=== PATIENT | female | born 1995 | race Caucasian/White ===

== ENCOUNTER 2016-09-09 19:04 | Emergency (ER) | payer SELFPAY ==
[~2016-09-09] VITALS: Ht 162.6 cm; Wt 57.2 kg
[2016-09-09] MEDS ORDERED: NKM (19:14)
[2016-09-09] MEDS ORDERED: Famotidine 20 MG/ 2ML VIAL IVP ONE (19:30)
[2016-09-09] MEDS ORDERED: Metoclopramide 10mg/2ml Inj IVP ONE (19:30)
[2016-09-09] MEDS ORDERED: Morphine Sulfate 2mg/ml Inj IVP ONE (19:45)
--- NOTE | 2016-09-09 19:48 | Emergency Room Report ---
History of Present Illness General Chief Complaint: Abdominal Pain Source: Patient Present Illness HPI 20YOF walk-in with 3 hours R>L lower abd pain with nausea/vomiting, chills. No urinary complaints. History of bilateral ovarian cysts. Painful episodes usually last "just for a minute", have been better since control implant by [employer]. This does NOT feel similar. Denies sick contacts, foreign travel, previous travel. Allergies: Coded Allergies: PENICILLINS (Verified Allergy, Unknown, 09/09/16) Patient History Past Medical History: other - Bilateral ovarian cysts Past Surgical History: none Pertinent Family History: none Social History: Denies: alcohol use, drug use, smoking Last Menstrual Period: unk Review of Systems All Other Systems: negative except mentioned in HPI Physical Exam Vital Signs Date Time Temp Pulse Resp B/P Pulse Ox O2 Delivery O2 Flow Rate FiO2 09/09/16 19:09 97.5 106 16 113/73 100 Room Air Sp02 EP Interpretation: reviewed, abnormal General Appearance: normal inspection, well appearing, no apparent distress, alert, GCS 15, non-toxic Head: normocephalic Eyes: bilateral eye EOMI, bilateral eye PERRL ENT: normal ENT inspection, hearing grossly normal, normal voice Neck: normal inspection, full range of motion, supple, no bony tend Respiratory: normal inspection, lungs clear, normal breath sounds, no respiratory distress, no retraction, no wheezing Cardiovascular #1: regular rate, rhythm, no edema Gastrointestinal: normal inspection, normal bowel sounds, soft, no guarding, no hernia, other - TTP to RLQ. No rebound, guarding or peritoneal signs. 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 Normotensive. Afebrile. - Urine preg negative - UA: WBCs, LE. Also squams, ?contaminated - Labs: Leuks 16K Given longer duration for pain today vs usual "cyst" pain, leukocytosis, will do CTAP to r/o appy Endorsed to Dr Epperson at 10pm to followup result and further management. Last Vital Signs Date Time Temp Pulse Resp B/P Pulse Ox O2 Delivery O2 Flow Rate FiO2 09/09/16 19:09 97.5 106 16 113/73 100 Room Air Status: improved FOZIA RODRIGUEZ M.D. Sep 09, 2016 19:48
[2016-09-09 20:00] VITALS: BP_SYST 106; BP_SYST 142; BP_DIAS 62; BP_DIAS 72
[2016-09-09 20:34] LABS: APPEARANCE,URINE SLIGHTLY CLOUDY; KETONES,URINE NEGATIVE (NEGATIVE); LEUKOCYTE ESTERASE ,URINE 2+ (NEGATIVE); NITRITE,URINE NEGATIVE (NEGATIVE); PH,URINE 6 (4.5-8.0); PROTEIN,URINE 1+ (NEGATIVE); UROBILINOGEN,URINE NORMAL MG/DL (0.0-1.0)
[2016-09-09 20:49] LABS: BACTERIA,URINE FEW /HPF; SQUAMOUS EPITHELIAL CELL,UR MANY /LPF (NONE/OCC)
[2016-09-09 21:00] VITALS: BP 101/63
[2016-09-09 21:07] LABS: MEAN CORPUSCULAR HEMOGLOBIN 27.5 PG (27.0-31.0); MEAN CORPUSCULAR HGB CONC 32.3 G/DL (32.0-36.0); MEAN CORPUSCULAR VOLUME 85 FL (80-99); MEAN PLATELET VOLUME 7.6 FL (6.5-10.1); PLATELET COUNT 267 K/UL (150-450); RED BLOOD COUNT 4.43 M/UL (4.20-5.40); RED CELL DISTRIBUTION WIDTH 14.1 % (11.6-14.8); WHITE BLOOD COUNT 16.4 K/UL (4.8-10.8)
[2016-09-09 21:10] LABS: EOSINOPHILS % (AUTO) 0.7 % (0.0-3.0); LYMPHOCYTES % (AUTO) 7.4 % (20.0-45.0); MONOCYTES % (AUTO) 5.8 % (1.0-10.0); NEUTROPHILS % (AUTO) 85.6 % (45.0-75.0)
[2016-09-09 21:11] LABS: BASOPHILS % (AUTO) 0.5 % (0.0-2.0)
[2016-09-09] MEDS ORDERED: cefTRIAXone 1 GM in NS 55 ML IVPB ONE (21:15)
[2016-09-09 21:30] LABS: ALANINE AMINOTRANSFERASE 9 U/L (3-33); ALBUMIN/GLOBULIN RATIO 1.3 (1.0-2.7); ANION GAP 17 (5-15); ASPARTATE AMINO TRANSFERASE 15 U/L (5-40); CALCIUM 8.9 mg/dL (8.6-10.2); CARBON DIOXIDE 24 mEQ/L (20-30); CHLORIDE 97 mEQ/L (98-107); CREATININE 0.7 mg/dL (0.5-0.9); GLOMERULAR FILTRATION RATE > 60 mL/min (>60); HEMOLYSIS 5; LIPASE 32 U/L (< 60); POTASSIUM 3.7 mEQ/L (3.4-4.9); SODIUM 138 mEQ/L (135-145); TOTAL PROTEIN 7.9 g/dL (6.6-8.7)
[2016-09-09] MEDS ORDERED: Clindamycin 600mg 50 ML IVPB ONE (21:30)
[2016-09-09] MEDS ORDERED: Solu-MEDROL 125mg Inj IVP ONE (22:15)
[2016-09-09] MEDS ORDERED: DiphenhydrAMINE 50mg/ml Inj IVP ONE (22:15)
[2016-09-09 22:23] VITALS: BP 140/80
[2016-09-09] MEDS ORDERED: Ketorolac 30mg Inj IV ONE (23:15)
[2016-09-09] MEDS ORDERED: Morphine Sulfate 4mg/ml Inj IVP ONE (23:15)
[2016-09-09] MEDS ORDERED: BACTRIM DS TAB1 EAC1 ORAL (23:17)
[2016-09-09] MEDS ORDERED: HYDROCODON-ACE1 EA15 ORAL (23:17)
[2016-09-09] MEDS ORDERED: IBUPROFEN600 MG ORAL (23:17)
[2016-09-09 23:32] VITALS: BP 90/57
--- NOTE | 2016-09-10 09:10 | Diagnostic Imaging Report ---
Indication: Right lower quadrant pain Technique: CT of the abdomen and pelvis utilizing automated exposure control with intravenous contrast. Venous scanning performed. CT dose: Total DLP 750 mGycm; CTDI vol 15.5 mGy Comparison: None Findings: Lung bases are clear. The liver, adrenal glands, kidneys, spleen and pancreas are unremarkable. No CT evident gallstones are seen. Small bowel loops are normal in caliber. Fluid-filled nondilated distal small bowel loops are seen. The appendix is normal. There is no free intraperitoneal fluid or air. There is a 1.7 cm hypodense probable left ovarian cyst. Bladder is grossly unremarkable. Abdominal aorta is normal in caliber. Impression: Normal appendix. Fluid-filled nondilated distal small bowel loops possibly representing mild nonspecific enteritis. Clinical correlation recommended. Other findings as above. The CT scanner at [facility] is accredited by the [employer] and the scans are performed using protocols designed to limit radiation exposure to as low as reasonably achievable to attain images of sufficient resolution adequate for diagnostic evaluation.
== END 2016-09-09 23:32 | disposition home or self-care (01) ==
LOC: EMR 21:47
DX: R10.31 Right lower quadrant pain (principal); Z88.0 Allergy status to penicillin
CPT/HCPCS: 36415; 74177; 80053; 80300; 81003; 81025; 83690; 85025; 87086; 96374; 96375; 99284; J1200; J1885; J2270; J2405; J2930; Q9967; S0077

== ENCOUNTER 2017-07-19 21:12 | Emergency (ER) | payer MEDICAID ==
[~2017-07-19] VITALS: Ht 160 cm; Wt 59.0 kg
[~2017-07-19 21:12] MED LIST: BACTRIM DS TAB1 EAC1 ORAL; CIPROFLOXACIN500 M2 ORAL; HYDROCODON-ACE1 EA15 ORAL; IBUPROFEN600 MG ORAL; NKM; ZOFRAN ODT4 MG ORAL
--- NOTE | 2017-07-19 21:33 | Emergency Room Report ---
History of Present Illness General Chief Complaint: Abdominal Pain Source: Patient Present Illness HPI This is a 21-year-old female with no significant past medical history. She presents with chief complaint of abdominal pain. She was here 2 days ago for left flank pain. Labs were unremarkable. Urine was questionable infection. Ultrasound was negative. Now pain radiates to the pelvic area and is more severe. Pain is 9 out of 10. Radiating to the pelvic area. No dysuria frequency. Multiple episode vomiting. No diarrhea. No fever or chills. Nothing made it better. Nothing made it worse. Allergies: Coded Allergies: IODINE (Verified Allergy, Unknown, 07/17/17) PENICILLINS (Verified Allergy, Unknown, 07/17/17) Patient History Past Medical History: see triage record, old chart reviewed Past Surgical History: none Pertinent Family History: none Social History: Denies: smoking Last Menstrual Period: four months ago Now: No : 1 Para: 1 Immunizations: other Reviewed Nursing Documentation: PMH: Agreed; PSxH: Agreed Nursing Documentation-PMH Hx Asthma: Yes Review of Systems Eye: Denies: eye pain, blurred vision ENT: Denies: ear pain, nose congestion, throat swelling Respiratory: Denies: cough, shortness of breath Cardiovascular: Denies: chest pain, palpitations Gastrointestinal: Reports: abdominal pain, nausea, vomiting; Denies: diarrhea Musculoskeletal: Denies: back pain, joint pain Skin: Denies: rash Neurological: Denies: headache, numbness Endocrine: Denies: increased thirst, increased urine Hematologic/Lymphatic: Denies: easy bruising All Other Systems: negative except mentioned in HPI Physical Exam Vital Signs Date Time Temp Pulse Resp B/P (MAP) Pulse Ox O2 Delivery O2 Flow Rate FiO2 07/19/17 21:26 98.3 104 18 117/81 98 Room Air 98.2 Sp02 EP Interpretation: reviewed, normal General Appearance: well appearing, no apparent distress, alert Head: normocephalic, atraumatic Eyes: bilateral eye PERRL, bilateral eye EOMI ENT: hearing grossly normal, normal pharynx Neck: full range of motion, supple, no meningismus Respiratory: chest non-tender, lungs clear, normal breath sounds Cardiovascular #1: regular rate, rhythm, no murmur Gastrointestinal: normal bowel sounds, no mass, no organomegaly, no bruit, non- distended, tenderness - left lower quadrant and suprapubic Musculoskeletal: back normal, gait/station normal, normal range of motion Psychiatric: mood/affect normal Skin: warm/dry Medical Decision Making Diagnostic Impression: Primary Impression: Renal colic on left side Additional Impression: Abdominal pain Qualified Codes: R10.32 - Left lower quadrant pain ER Course Patient with abdominal pain. No evidence of infection. CT scan showed a punctated nonobstructing renal calculi. I review her blood work and urinalysis from a couple days ago. She does have microscopic hematuria. It improved today. I suspect that she passed a kidney stone. No evidence of acute abdomen. We'll discharge home. Continue with antibiotics. Lab Results Impression labs unremarkable CT/MRI/US Diagnostic Results CT/MRI/US Diagnostic Results : Imaging Test Ordered: CT abdomen and pelvis Impression Read by radiologist. No urinary obstruction. Punctated nonobstructed renal calculi. Last Vital Signs Date Time Temp Pulse Resp B/P (MAP) Pulse Ox O2 Delivery O2 Flow Rate FiO2 07/19/17 21:26 98.3 104 18 117/81 98 Room Air 98.2 Status: improved Disposition: HOME, SELF-CARE Condition: Stable Scripts Ibuprofen* (MOTRIN*) 600 Mg Tablet 600 MG ORAL THREE TIMES A DAY, #30 TAB 0 Refills Prov: BRYANT PATEL M.D. 07/19/17 Hydrocodone/Acetaminophen 5-325* (HYDROCODONE/ACETAMINOPHEN 5-325*) 1 Each Tablet 1 TAB ORAL Q6H PRN for For Pain, #15 TAB 0 Refills Prov: BRYANT PATEL M.D. 07/19/17 Additional Instructions: Follow-up your DrYeni in 2-3 days if not better. Return if symptom worsen. Increase fluid. Finish antibiotics. BRYANT PATEL M.D. Jul 19, 2017 21:33
[2017-07-19] MEDS ORDERED: Ketorolac 30mg Inj IV ONE (21:45)
[2017-07-19 21:48] VITALS: BP 117/81
[2017-07-19 21:55] LABS: APPEARANCE,URINE CLEAR; BILIRUBIN, URINE NEGATIVE (NEGATIVE); COLOR,URINE PALE YELLOW; GLUCOSE, URINE (UA) NEGATIVE (NEGATIVE); KETONES,URINE NEGATIVE (NEGATIVE); LEUKOCYTE ESTERASE ,URINE NEGATIVE (NEGATIVE); NITRITE,URINE NEGATIVE (NEGATIVE); PH,URINE 6 (4.5-8.0); PROTEIN,URINE 3+ (NEGATIVE); UROBILINOGEN,URINE NORMAL MG/DL (0.0-1.0)
[2017-07-19 22:21] LABS: BASOPHILS % (AUTO) 0.8 % (0.0-2.0); EOSINOPHILS % (AUTO) 1.6 % (0.0-3.0); HEMATOCRIT 37.7 % (37.0-47.0); HEMOGLOBIN 12.3 G/DL (12.0-16.0); LYMPHOCYTES % (AUTO) 19.7 % (20.0-45.0); MEAN CORPUSCULAR VOLUME 86 FL (80-99); MONOCYTES % (AUTO) 8.4 % (1.0-10.0); NEUTROPHILS % (AUTO) 69.5 % (45.0-75.0); PLATELET COUNT 293 K/UL (150-450); RED BLOOD COUNT 4.38 M/UL (4.20-5.40); RED CELL DISTRIBUTION WIDTH 12.6 % (11.6-14.8); WHITE BLOOD COUNT 13.4 K/UL (4.8-10.8)
[2017-07-19] MEDS ORDERED: Morphine Sulfate 4mg/ml Inj IVP ONE (22:45)
[2017-07-19] MEDS ORDERED: HYDROCODON-ACE1 EA15 ORAL (23:06)
[2017-07-19] MEDS ORDERED: IBUPROFEN600 MG ORAL (23:06)
[2017-07-19 23:20] VITALS: BP 110/67
--- NOTE | 2017-07-20 10:40 | Diagnostic Imaging Report ---
Indication: Abdominal pain, nausea, vomiting Technique: Spiral acquisitions obtained through the abdomen and pelvis. No oral contrast utilized, per emergency room physician request No IV contrast utilized, per referring physician request.. Multiplanar reconstructions were generated. Total dose length product 673.93 mGycm. CTDIvol(s) 13.21 mGy. Dose reduction achieved using automated exposure control Comparison: 09/09/2016 Findings: The appendix is normal. No evidence of diverticulosis or diverticulitis. No small bowel distention. No free or loculated intraperitoneal air or fluid is evident. There is a tiny fat-containing umbilical hernia again demonstrated. Lack of IV contrast limits assessment of the solid organs. The liver, gallbladder, bile ducts, pancreas, spleen, adrenals, are all unremarkable. There is equivocal slight edema of the right kidney and slight indistinctness of the right renal margin, minimal stranding of the perinephric fat. There is a 2 mm calculus within the left upper pole renal sinus, not definitely evident previously. No ureteral calculi, hydronephrosis or hydroureter demonstrated. The bladder is unremarkable, nondistended. Uterus and ovaries are unremarkable. No pelvic mass or adenopathy. No retroperitoneal or mesenteric mass or adenopathy. The included lung bases are clear. 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 Bones are otherwise unremarkable. Impression: Equivocal right renal edema, if real could indicate mild pyelonephritis. Correlate with clinical and laboratory findings No acute or significant abnormality otherwise Nonobstructive left upper pole renal calculus Incidental findings as noted, including transitional lumbosacral anatomy This agrees with the preliminary interpretation provided overnight by [facility] teleradiology service. The CT scanner at [facility] is accredited by the [employer] and the scans are performed using protocols designed to limit radiation exposure to as low as reasonably achievable to attain images of sufficient resolution adequate for diagnostic evaluation.
== END 2017-07-19 23:20 | disposition home or self-care (01) ==
LOC: EMR 22:00
DX: N20.0 Calculus of kidney (principal); J45.909 Unspecified asthma, uncomplicated; Z88.0 Allergy status to penicillin
CPT/HCPCS: 36415; 74176; 81003; 81025; 85025; 96374; 96375; 99284; J1885; J2270; J2405

== ENCOUNTER 2017-09-06 22:54 | Emergency (ER) | payer MEDICAID ==
[~2017-09-06] VITALS: Ht 160 cm; Wt 63.5 kg
[2017-09-06 23:15] VITALS: BP 112/66
--- NOTE | 2017-09-06 23:27 | Emergency Room Report ---
History of Present Illness General Chief Complaint: Abdominal Pain Source: Patient Present Illness HPI Is a 21-year-old female with no past medical history. She's been having recurrent left pelvic/lower quadrant pain. I saw her in June for same. She presents with acute onset of left lower quadrant pain that started around 7:30 PM. Progressively getting worse. Now worse with movement and palpation. Has nausea but no vomiting. No hematuria. Denies any fever chills. Similar symptom in the past. No radiation. Localized to the left lower quadrant. Allergies: Coded Allergies: IODINE (Verified Allergy, Unknown, 07/17/17) PENICILLINS (Verified Allergy, Unknown, 07/17/17) Patient History Past Medical History: see triage record, old chart reviewed Past Surgical History: none Pertinent Family History: none Social History: Denies: smoking Last Menstrual Period: unk Now: No - has control iimplants Immunizations: other Reviewed Nursing Documentation: PMH: Agreed; PSxH: Agreed Nursing Documentation-PMH Hx Asthma: Yes Review of Systems Eye: Denies: eye pain, blurred vision ENT: Denies: ear pain, nose congestion, throat swelling Respiratory: Denies: cough, shortness of breath Cardiovascular: Denies: chest pain, palpitations Gastrointestinal: Reports: abdominal pain; Denies: diarrhea, nausea, vomiting Musculoskeletal: Denies: back pain, joint pain Skin: Denies: rash Neurological: Denies: headache, numbness Endocrine: Denies: increased thirst, increased urine Hematologic/Lymphatic: Denies: easy bruising All Other Systems: negative except mentioned in HPI Physical Exam Vital Signs Date Time Temp Pulse Resp B/P (MAP) Pulse Ox O2 Delivery O2 Flow Rate FiO2 09/06/17 23:03 98.2 93 18 104/69 97 Room Air 98.2 vitals normal Sp02 EP Interpretation: reviewed, normal General Appearance: well appearing, no apparent distress, alert Head: normocephalic, atraumatic Eyes: bilateral eye PERRL, bilateral eye EOMI ENT: hearing grossly normal, normal pharynx Neck: full range of motion, supple, no meningismus Respiratory: chest non-tender, lungs clear, normal breath sounds Cardiovascular #1: regular rate, rhythm, no murmur Gastrointestinal: normal bowel sounds, non tender, no mass, no organomegaly, no bruit, non-distended, tenderness - left lower quadrant Musculoskeletal: back normal, gait/station normal, normal range of motion Psychiatric: mood/affect normal Skin: warm/dry Medical Decision Making Diagnostic Impression: Primary Impression: Abdominal pain Qualified Codes: R10.32 - Left lower quadrant pain Additional Impression: Hematuria Qualified Codes: R31.21 - Asymptomatic microscopic hematuria ER Course Patient with abdominal pain and microscopic hematuria. This may be secondary to a passed stone but other differential include renal cysts, bladder cyst, infection, neoplasm. CT scan unremarkable. We'll discharge home with urology follow-up. CT/MRI/US Diagnostic Results CT/MRI/US Diagnostic Results : Imaging Test Ordered: CT abdomen and pelvis Impression read by radiologist. no acute inflammation surrounding the appendix. 1 mm nonobstructing left renal stone. Last Vital Signs Date Time Temp Pulse Resp B/P (MAP) Pulse Ox O2 Delivery O2 Flow Rate FiO2 09/06/17 23:03 98.2 93 18 104/69 97 Room Air 98.2 Status: improved Disposition: HOME, SELF-CARE Condition: Stable Scripts Ibuprofen* (MOTRIN*) 600 Mg Tablet 600 MG ORAL THREE TIMES A DAY, #30 TAB 0 Refills Prov: BRYANT PATEL M.D. 09/07/17 Hydrocodone/Acetaminophen 5-325* (HYDROCODONE/ACETAMINOPHEN 5-325*) 1 Each Tablet 1 TAB ORAL Q6H PRN for For Pain, #20 TAB 0 Refills Prov: BRYANT PATEL M.D. 09/07/17 Patient Instructions: Abdominal Pain, Adult Additional Instructions: Follow-up your doctor in 2-3 days. Return if symptom worsen. You may need a referral to see a urologist for bloody urine. BRYANT PATEL M.D. Sep 06, 2017 23:27
[2017-09-06] MEDS ORDERED: Morphine Sulfate 4mg/ml Inj IVP ONE (23:30)
[2017-09-06] MEDS ORDERED: Ketorolac 30mg Inj IV ONE (23:30)
[2017-09-06 23:54] LABS: BASOPHILS % (AUTO) 0.6 % (0.0-2.0); EOSINOPHILS % (AUTO) 1.9 % (0.0-3.0); HEMATOCRIT 41.1 % (37.0-47.0); HEMOGLOBIN 13.6 G/DL (12.0-16.0); LYMPHOCYTES % (AUTO) 24.3 % (20.0-45.0); MEAN CORPUSCULAR VOLUME 84 FL (80-99); MONOCYTES % (AUTO) 6.1 % (1.0-10.0); NEUTROPHILS % (AUTO) 67.1 % (45.0-75.0); PLATELET COUNT 326 K/UL (150-450); RED BLOOD COUNT 4.89 M/UL (4.20-5.40); RED CELL DISTRIBUTION WIDTH 12.9 % (11.6-14.8); WHITE BLOOD COUNT 10.3 K/UL (4.8-10.8)
[2017-09-07 00:05] LABS: ANION GAP 8 mmol/L (5-15); BLOOD UREA NITROGEN 10 mg/dL (7-18); CALCIUM 8.8 MG/DL (8.5-10.1); CARBON DIOXIDE 25 MMOL/L (21-32); CHLORIDE 104 MMOL/L (98-107); CREATININE 0.7 MG/DL (0.55-1.30); POTASSIUM 3.5 MMOL/L (3.5-5.1); SODIUM 137 MMOL/L (136-145)
[2017-09-07 00:06] LABS: APPEARANCE,URINE CLEAR; BILIRUBIN, URINE NEGATIVE (NEGATIVE); COLOR,URINE PALE YELLOW; GLUCOSE, URINE (UA) NEGATIVE (NEGATIVE); KETONES,URINE NEGATIVE (NEGATIVE); LEUKOCYTE ESTERASE ,URINE 1+ (NEGATIVE); NITRITE,URINE NEGATIVE (NEGATIVE); PH,URINE 7 (4.5-8.0); PROTEIN,URINE NEGATIVE (NEGATIVE); UROBILINOGEN,URINE NORMAL MG/DL (0.0-1.0)
[2017-09-07 01:00] VITALS: BP 107/64
[2017-09-07] MEDS ORDERED: IBUPROFEN600 MG ORAL (01:46)
[2017-09-07] MEDS ORDERED: HYDROCODON-ACE1 EA15 ORAL (01:46)
[2017-09-07 02:00] VITALS: BP 112/66
--- NOTE | 2017-09-07 14:38 | Diagnostic Imaging Report ---
Indication: Abdominal pain Technique: Spiral acquisitions obtained through the abdomen and pelvis. No oral contrast utilized, per emergency room physician request No IV contrast utilized, per referring physician request.. Multiplanar reconstructions were generated. Total dose length product 657 mGycm. CTDIvol(s) 13 mGy. Dose reduction achieved using automated exposure control Comparison: 07/19/2017 Findings: Appendix is slightly prominent in caliber, but contains gas and there is no evidence of periappendiceal inflammation. Is equivocal mild wall thickening of the ascending colon, but this is probably an artifact of under distention. No evidence of diverticulosis or diverticulitis. Prominent small bowel loops are seen in the pelvis, but no erum small bowel distention demonstrated. No free or loculated intraperitoneal air or fluid. Distal esophagus, stomach, duodenum are unremarkable. Lack of IV contrast limits assessment of the solid organs. The liver, gallbladder, bile ducts, pancreas, spleen, adrenals, right kidney are unremarkable. Punctate calcification is again demonstrated in the left renal upper pole. No ureteral calculi, hydronephrosis, or hydroureter. No pelvic mass or adenopathy. No retroperitoneal or mesenteric mass or adenopathy. The included lung bases are clear. The bones are unremarkable. Impression: Punctate nonobstructive left upper pole renal calculus again demonstrated No acute or significant abnormality This agrees with the preliminary interpretation provided overnight by [employer]erad[facility] service. The CT scanner at [facility] is accredited by the [employer] and the scans are performed using protocols designed to limit radiation exposure to as low as reasonably achievable to attain images of sufficient resolution adequate for diagnostic evaluation.
== END 2017-09-07 02:00 | disposition home or self-care (01) ==
LOC: EMR 23:27
DX: R10.32 Left lower quadrant pain (principal); R31.21 Asymptomatic microscopic hematuria; Z88.0 Allergy status to penicillin; Z91.041 Radiographic dye allergy status; N20.0 Calculus of kidney
CPT/HCPCS: 36415; 74176; 80048; 81003; 81025; 85025; 96360; 96374; 96375; 99284; J1885; J2270; J2405

== ENCOUNTER 2017-11-16 11:58 | Emergency (ER) | payer MEDICAID ==
[~2017-11-16] VITALS: Ht 160 cm; Wt 62.1 kg
[2017-11-16] MEDS ORDERED: NKM (12:31)
[2017-11-16 12:45] VITALS: BP 118/76
[2017-11-16 13:00] LABS: APPEARANCE,URINE SLIGHTLY CLOUDY; BILIRUBIN, URINE NEGATIVE (NEGATIVE); GLUCOSE, URINE (UA) NEGATIVE (NEGATIVE); KETONES,URINE NEGATIVE (NEGATIVE); LEUKOCYTE ESTERASE ,URINE 1+ (NEGATIVE); NITRITE,URINE NEGATIVE (NEGATIVE); PH,URINE 6.5 (4.5-8.0); PROTEIN,URINE NEGATIVE (NEGATIVE); UROBILINOGEN,URINE 1 MG/DL (0.0-1.0)
[2017-11-16] MEDS ORDERED: Norco 5mg/325mg tab ORAL ONE (13:00)
[2017-11-16] MEDS ORDERED: Ketorolac 30mg Inj IV ONE (13:00)
[2017-11-16 13:07] LABS: COLOR,URINE YELLOW
[2017-11-16 13:29] LABS: BASOPHILS % (AUTO) 0.9 % (0.0-2.0); EOSINOPHILS % (AUTO) 2.8 % (0.0-3.0); HEMATOCRIT 43.1 % (37.0-47.0); HEMOGLOBIN 13.7 G/DL (12.0-16.0); LYMPHOCYTES % (AUTO) 27.2 % (20.0-45.0); MEAN CORPUSCULAR VOLUME 84 FL (80-99); MONOCYTES % (AUTO) 6.3 % (1.0-10.0); NEUTROPHILS % (AUTO) 62.7 % (45.0-75.0); PLATELET COUNT 340 K/UL (150-450); RED CELL DISTRIBUTION WIDTH 12.7 % (11.6-14.8); WHITE BLOOD COUNT 8.7 K/UL (4.8-10.8)
[2017-11-16 13:48] LABS: ANION GAP 13 mmol/L (5-15); BLOOD UREA NITROGEN 11 mg/dL (7-18); CARBON DIOXIDE 24 MMOL/L (21-32); CHLORIDE 103 MMOL/L (98-107); CREATININE 0.7 MG/DL (0.55-1.30); POTASSIUM 3.8 MMOL/L (3.5-5.1); SODIUM 139 MMOL/L (136-145)
[2017-11-16 13:52] LABS: ALANINE AMINOTRANSFERASE 22 U/L (12-78); ALBUMIN 4.1 G/DL (3.4-5.0); ALBUMIN/GLOBULIN RATIO 0.9 (1.0-2.7); ALKALINE PHOSPHATASE 99 U/L (46-116); ASPARTATE AMINO TRANSFERASE 21 U/L (15-37); BILIRUBIN,TOTAL 0.3 MG/DL (0.2-1.0)
--- NOTE | 2017-11-16 14:15 | Diagnostic Imaging Report ---
Indication: Abdominal pain Technique: Noncontrast CT of the abdomen and pelvis utilizing automated exposure control. Axial, sagittal and coronal reformats presented. CT dose: Total DLP 696.59 mGycm; CTDI vol 13.45 mGy Comparison: None Findings: Please note that evaluation of the abdominal and pelvic viscera and vascular structures is limited without the use of intravenous and oral contrast. Within these limitations the following observations are made: Patchy airspace opacities are noted in the right lower lobe concerning for pneumonia. Correlate clinically. No pleural effusion or pneumothorax. Heart size within normal limits. No pericardial effusion. Imaged breast tissue appears symmetric. Noncontrast evaluation of the liver, gallbladder, spleen, adrenal glands and pancreas is grossly unremarkable. Kidneys are symmetric in size. There is no urinary tract stone or hydronephrosis bilaterally. The bladder is unremarkable in appearance. Uterus grossly unremarkable for CT and patient's age. There is a approximately 1.4 cm cystic structure in the left adnexa which may represent a ovarian or paraovarian cyst. There is no free intraperitoneal air or fluid. There is no evidence of small bowel obstruction. No definite inflammatory change in the mesentery. No focal bowel wall thickening. Appendix is normal. Abdominal aorta normal in caliber. No pathologically enlarged/conglomerate lymphadenopathy. There is a tiny fat-containing umbilical hernia. No acute osseous abnormality. IMPRESSION: Limited exam without intravenous and oral contrast. Within these limitations: * Patchy airspace opacities in the right lower lobe most concerning for pneumonia. Clinical correlation/follow-up recommended. * No evidence of urinary tract stone or hydronephrosis as questioned clinically. * Normal appendix. * Small simple appearing left ovarian or paraovarian cyst. * No acute osseous abnormality. * Tiny fat-containing umbilical hernia. The CT scanner at [facility] is accredited by the [employer] and the scans are performed using protocols designed to limit radiation exposure to as low as reasonably achievable to attain images of sufficient resolution adequate for diagnostic evaluation.
--- NOTE | 2017-11-16 14:21 | Emergency Room Report ---
History of Present Illness General Chief Complaint: Abdominal Pain Source: Patient Present Illness HPI 22-year-old female patient presents ER complaining of sharp abdominal pain since this morning. Reports she was at work when she began to experience sharp suprapubic pain. Denies dysuria, hematuria, vaginal discharge. Reports history of ovarian cysts. Reports currently on control, denies concern for STI . Reports last gave a year ago door child, normal delivery however had an infection following delivery and stayed in the hospital for a week for antibiotics. denies back or flank pain. Reports one episode of vomiting earlier today. Reports no complications since that time. Denies fever , chest pain, shortness of breath. Allergies: Coded Allergies: IODINE (Verified Allergy, Unknown, 07/17/17) PENICILLINS (Verified Allergy, Unknown, 07/17/17) Patient History Last Menstrual Period: control implant Now: No Reviewed Nursing Documentation: PMH: Agreed; PSxH: Agreed Nursing Documentation-PMH Past Medical History: No History, Except For Hx Asthma: Yes Review of Systems All Other Systems: negative except mentioned in HPI Physical Exam Vital Signs Date Time Temp Pulse Resp B/P (MAP) Pulse Ox O2 Delivery O2 Flow Rate FiO2 11/16/17 12:28 98.3 89 16 118/76 98 Room Air 98.2 Sp02 EP Interpretation: reviewed, normal General Appearance: well appearing, no apparent distress, alert, GCS 15, non- toxic Head: normocephalic, atraumatic Eyes: bilateral eye normal inspection, bilateral eye PERRL ENT: hearing grossly normal, normal pharynx, no angioedema, normal voice, uvula midline, moist mucus membranes Neck: full range of motion Respiratory: lungs clear, normal breath sounds, no rhonchi, no respiratory distress, no accessory muscle use, no wheezing, speaking full sentences Cardiovascular #1: regular rate, rhythm, no edema Gastrointestinal: normal bowel sounds, soft, no mass, no organomegaly, non- distended, no pulsatile mass, tenderness - suprapubic, other - negative obturator, negative mcdowell Genitourinary: no CVA tenderness Musculoskeletal: back normal, digits/nails normal, gait/station normal, normal range of motion, non-tender Neurologic: alert, oriented x3, responsive, motor strength/tone normal, sensory intact Psychiatric: mood/affect normal Skin: no rash Medical Decision Making PA Attestation Dr. Cruz is my supervising Physician whom patient management has been discussed with. Diagnostic Impression: Primary Impression: Cyst, ovarian Additional Impression: Uterine fibroid ER Course Pt. presents to the ED c/o abdominal pain and vomiting. Ddx considered but are not limited to UTI, cholelithiasis, cholecystitis, pancreatitis, appendicitis, diverticulitis, constipation, drug use, ovarian torsion. Begin abdominal pain workup. Provided patient with pain medication. due to location of pain symptoms ordered CT abdomen to rule out possible appendicitis, we'll also order a pelvic ultrasound to rule out ovarian torsion due to history of ovarian cyst. Vital signs: are WNL, pt. is afebrile ORDERS: CBC, CMP, Lipase, UA, CT abdomen pelvis, pelvic ultrasound, Zofran, Pepcid and medication. ER COURSE: CBC and CMP unremarkable, no elevation WBCs her LFTs Lipase within normal limits UA unremarkable, multiple epithelial cells, low suspicion for UTI, does not require antibiotics at this time. Urine negative blood type O+ Rh antibody Discuss results with patient CT abdomen and pelvis shows normal appendix, small simple appearing left paraovarian or ovarian cyst, patchy airspace opacity right lower lobe concerning for pneumonia, advised to correlate clinically, lungs clear to auscultation, no wheezes rhonchi or rales, however we will order chest x-ray to rule out. Pelvic US no evidence of torsion, paraovarian cyst, uterine fibroid. Informed patient that these may be responsible for pain symptoms. Advised patient to follow up with primary care provider and [employer] to discuss further treatment and referral. Due to chronicity of cysts may require surgical intervention, advised to discuss with [employer] specialist. chest x-ray negative for acute disease CAUSING results with patient, patient states that she is now having some pruritic symptoms on her legs after taking Zofran that was provided to her at arrival to ER, denies history of allergy to medication, no breathing difficulties no tongue swelling, no vomiting, will provide Benadryl. will continue to monitor all patient completes IV fluids. Discuss results with the patient. Provided patient with copy of image results. Instructed patient to followup with PCP and discuss results of report with patient, discuss need for further treatment and referral. Patient reports relief of pain symptoms with medication. patient nontoxic appearing, in no acute distress, ambulating without difficulty, okay for discharge to home. ER precautions given. DISCHARGE: Rx Tylenol At this time pt. is stable for d/c to home. Patient resting comfortably, in no acute distress, nontoxic appearing, talking without difficulty. Rx provided to patient. Patient to take medications as instructed Will provide with patient care instructions and any necessary prescriptions. Care plan and follow-up instructions provided. Patient instructed to follow-up with primary care provider in 3 - 5 days. Patient questions asked and answered. Patient reports understanding and agreement to treatment plan. ER precautions given. Patient instructed to return to ER immediately for any new or worsening of symptoms including but not limited to increasing SOB, persistent fever, worsening of pain symptoms, intractable vomiting, blood in stool, urine, and/or emesis. - Please note that this Emergency Department Report was dictated using [employer] operations technology software, occasionally this can lead to erroneous entry secondary to interpretation by the dictation equipment. Labs Test 11/16/17 12:41 11/16/17 12:51 Urine Color Yellow Urine Appearance Slightly cloudy Urine pH 6.5 (4.5-8.0) Urine Specific Bentley 1.015 (1.005-1.035) Urine Protein Negative (NEGATIVE) Urine Glucose (UA) Negative (NEGATIVE) Urine Ketones Negative (NEGATIVE) Urine Blood 3+ (NEGATIVE) Urine Nitrite Negative (NEGATIVE) Urine Bilirubin Negative (NEGATIVE) Urine Urobilinogen 1 MG/DL (0.0-1.0) Urine Leukocyte Esterase 1+ (NEGATIVE) Urine RBC 5-10 /HPF (0 - 2) Urine WBC 5-10 /HPF (0 - 2) Urine Squamous Epithelial Cells Moderate /LPF (NONE/OCC) Urine Bacteria Few /HPF (NONE) Urine HCG, Qualitative Negative (NEGATIVE) White Blood Count 8.7 K/UL (4.8-10.8) Red Blood Count 5.10 M/UL (4.20-5.40) Hemoglobin 13.7 G/DL (12.0-16.0) Hematocrit 43.1 % (37.0-47.0) Mean Corpuscular Volume 84 FL (80-99) Mean Corpuscular Hemoglobin 27.0 PG (27.0-31.0) Mean Corpuscular Hemoglobin Concent 31.9 G/DL (32.0-36.0) Red Cell Distribution Width 12.7 % (11.6-14.8) Platelet Count 340 K/UL (150-450) Mean Platelet Volume 7.7 FL (6.5-10.1) Neutrophils (%) (Auto) 62.7 % (45.0-75.0) Lymphocytes (%) (Auto) 27.2 % (20.0-45.0) Monocytes (%) (Auto) 6.3 % (1.0-10.0) Eosinophils (%) (Auto) 2.8 % (0.0-3.0) Basophils (%) (Auto) 0.9 % (0.0-2.0) Sodium Level 139 MMOL/L (136-145) Potassium Level 3.8 MMOL/L (3.5-5.1) Chloride Level 103 MMOL/L (98-107) Carbon Dioxide Level 24 MMOL/L (21-32) Anion Gap 13 mmol/L (5-15) Blood Urea Nitrogen 11 mg/dL (7-18) Creatinine 0.7 MG/DL (0.55-1.30) Estimat Glomerular Filtration Rate > 60 mL/min (>60) Glucose Level 105 MG/DL (74-106) Calcium Level 9.0 MG/DL (8.5-10.1) Total Bilirubin 0.3 MG/DL (0.2-1.0) Aspartate Amino Transf (AST/SGOT) 21 U/L (15-37) Alanine Aminotransferase (ALT/SGPT) 22 U/L (12-78) Alkaline Phosphatase 99 U/L (46-116) Total Protein 8.7 G/DL (6.4-8.2) Albumin 4.1 G/DL (3.4-5.0) Globulin 4.6 g/dL Albumin/Globulin Ratio 0.9 (1.0-2.7) Lipase 155 U/L (73-393) Chest X-Ray Diagnostic Results Chest X-Ray Diagnostic Results : Chest X-Ray Ordered: Yes # of Views/Limited/Complete: 1 View Indication: Chest Pain EP Interpretation: Yes PA Xray: Interpretation reviewed, by supervising MD, and agrees with findings. Interpretation: no consolidation, no effusion, no pneumothorax, no acute cardiopulmonary disease Impression: No acute disease JOYCELYN Witt PA-C CT/MRI/US Diagnostic Results CT/MRI/US Diagnostic Results #1: Imaging Test Ordered: CT abdomen Impression Limited exam without intravenous and oral contrast. Within these limitations: * Patchy airspace opacities in the right lower lobe most concerning for pneumonia. Clinical correlation/follow-up recommended. * No evidence of urinary tract stone or hydronephrosis as questioned clinically. * Normal appendix. * Small simple appearing left ovarian or paraovarian cyst. * No acute osseous abnormality. * Tiny fat-containing umbilical hernia. CT/MRI/US Diagnostic Results #2: Imaging Test Ordered: Pelvis US Impression * No evidence of ovarian torsion. * Simple-appearing left paraovarian cyst. * Heterogeneity of the myometrium with questionable 1.8 cm likely uterine fibroid. Correlate clinically. * Trace nonspecific fluid/debris in the cervix. Last Vital Signs Date Time Temp Pulse Resp B/P (MAP) Pulse Ox O2 Delivery O2 Flow Rate FiO2 11/16/17 13:11 98.2 11/16/17 12:45 16 118/76 98 Room Air 11/16/17 12:28 89 Status: improved Disposition: HOME, SELF-CARE Condition: Stable Scripts Acetaminophen* (TYLENOL EXTRA STRENGTH*) 500 Mg Tablet 500 MG ORAL Q8H PRN for Prn Headache/Temp > 101, #30 TAB 0 Refills Prov: Moses Witt 11/16/17 Referrals: [facility],REFERRING (PCP) Patient Instructions: Abdominal Pain, Adult, Ovarian Cyst, Uterine Fibroids, [id number] Additional Instructions: Followup with primary care provider and followup with and./or OBGYN. Drink plenty of fluids. Take medications as directed. Patient questions asked and answered. ER precautions given, patient instructed to return to ER immediately for any new or worsening of symptoms. Moses Witt Nov 16, 2017 14:21
[2017-11-16] MEDS ORDERED: Morphine Sulfate 2mg/ml Inj(IV/IM USE ONLY) IVP ONE (14:30)
--- NOTE | 2017-11-16 15:21 | Diagnostic Imaging Report ---
Indication: Pain Technique: XRAY Chest 1v Comparison: None Findings: Heart size and mediastinal contours are within normal limits for AP technique. There is no focal consolidation, pneumothorax or pleural effusion. Osseous structures demonstrate no acute abnormality. Impression: No radiographic evidence of acute cardiopulmonary disease.
--- NOTE | 2017-11-16 15:26 | Diagnostic Imaging Report ---
Indication: Pain: Negative test reported Technique: Transabdominal and endovaginal pelvic ultrasound was performed. Findings: Uterus measures 7.1 x 4.8 x 2.6 cm. Slightly heterogeneous uterine echotexture. Question possible mass/fibroid in the anterior myometrium that measures approximately 1.8 cm.. Endometrium is normal in thickness measuring 1.4 mm. There is trace debris in the cervix. The right ovary measures 2.3 x 1.6 x 3 cm/5.8 mL. The left ovary measures 2.6 x 1.9 x 2.6 cm/6.7 mL. Color and Doppler flow is noted to the bilateral ovaries. There is a 1.8 x 1.1 cm simple appearing cystic lesion in the left adnexal region likely representing a left paraovarian cyst. No significant free pelvic fluid. Imaged portions of the urinary bladder grossly unremarkable. IMPRESSION: * No evidence of ovarian torsion. * Simple-appearing left paraovarian cyst. * Heterogeneity of the myometrium with questionable 1.8 cm likely uterine fibroid. Correlate clinically. * Trace nonspecific fluid/debris in the cervix.
[2017-11-16] MEDS ORDERED: TYLENOL EXTRA500 MG ORAL (15:33)
[2017-11-16 16:25] VITALS: BP 118/76
== END 2017-11-16 15:15 | disposition home or self-care (01) ==
LOC: EMR 13:05
DX: N83.202 Unspecified ovarian cyst, left side (principal); D25.9 Leiomyoma of uterus, unspecified; J45.909 Unspecified asthma, uncomplicated; Z88.0 Allergy status to penicillin; Z91.041 Radiographic dye allergy status; R07.9 Chest pain, unspecified
CPT/HCPCS: 36415; 71045; 74176; 76830; 76856; 80053; 81003; 81025; 83690; 85025; 86850; 86900; 86901; 96361; 96374; 96375; 99284; J1885; J2270; J2405

== ENCOUNTER 2017-12-04 00:26 | Emergency (ER) | payer MEDICAID ==
[~2017-12-04] VITALS: Ht 160 cm; Wt 61.2 kg
[~2017-12-04 00:26] MED LIST changes: +TYLENOL EXTRA500 MG ORAL
[2017-12-04 01:00] VITALS: BP 103/69
[2017-12-04] MEDS ORDERED: Morphine Sulfate 4mg/ml Inj (IV USE ONLY) IVP ONE ×2 (01:00→02:15)
[2017-12-04] MEDS ORDERED: Ketorolac 30mg Inj IV ONE (01:00)
--- NOTE | 2017-12-04 01:03 | Emergency Room Report ---
History of Present Illness General Chief Complaint: Abdominal Pain Present Illness [facility] Missy is healthy 22-year-old female with history of asthma, uterine fibroids and ovarian cysts presents with left lower quadrant pain for the last 3 weeks. She was evaluated by her PCP on Monday. Previously seen in the emergency department. pain which did improve tramadol. However she ran out of the medication today. She has have follow-up with specialist today. No radiation of the pain Allergies: Coded Allergies: KETOROLAC (Verified Allergy, Mild, 12/04/17) pt c/o had rashehs after using. IODINE (Verified Allergy, Unknown, 07/17/17) PENICILLINS (Verified Allergy, Unknown, 07/17/17) Patient History Past Medical History: see triage record, old chart reviewed, asthma Past Surgical History: none Last Menstrual Period: unk Nursing Documentation-PMH Hx Asthma: Yes Review of Systems Constitutional: Denies: fever, malaise Cardiovascular: Denies: chest pain Gastrointestinal: Denies: abdominal pain All Other Systems: negative except mentioned in HPI Physical Exam Vital Signs Date Time Temp Pulse Resp B/P (MAP) Pulse Ox O2 Delivery O2 Flow Rate FiO2 12/04/17 00:31 97.2 90 18 101/69 98 Room Air 97.2 Sp02 EP Interpretation: reviewed, normal General Appearance: no apparent distress, alert, GCS 15, non-toxic Head: normocephalic, atraumatic Eyes: bilateral eye normal inspection ENT: hearing grossly normal, normal pharynx, no angioedema, normal voice Neck: full range of motion, supple/symm/no masses Respiratory: chest non-tender, lungs clear, normal breath sounds, no rhonchi, no respiratory distress, no retraction, no accessory muscle use, speaking full sentences Cardiovascular #1: regular rate, rhythm, no edema, no gallop, no JVD, no murmur , no rub Gastrointestinal: normal bowel sounds, non tender, soft, non-distended, no guarding, no rebound Musculoskeletal: back normal, gait/station normal, normal range of motion, non- tender Neurologic: alert, oriented x3, responsive, motor strength/tone normal, sensory intact, speech normal Psychiatric: judgement/insight normal, memory normal, mood/affect normal, no suicidal/homicidal ideation Skin: normal color, no rash, warm/dry, well hydrated Lymphatic: no adenopathy Medical Decision Making ER Course Missy is a healthy 22 yo female who presents with persistent LLQ left flank pain for the past 5+ months. This is patient's 5 visit since June. I have reviewed the studies obtained previously. rx: tramadol. I do not suspect torsion or peritonitis. elevated WBC, nonspecific finding Last Vital Signs Date Time Temp Pulse Resp B/P (MAP) Pulse Ox O2 Delivery O2 Flow Rate FiO2 12/04/17 00:31 97.2 90 18 101/69 98 Room Air 97.2 Referrals: NON PHYSICIAN (PCP) Delfina Alva MD Dec 04, 2017 01:03
[2017-12-04 01:29] LABS: BASOPHILS % (AUTO) 0.7 % (0.0-2.0); EOSINOPHILS % (AUTO) 0.5 % (0.0-3.0); HEMATOCRIT 42.5 % (37.0-47.0); HEMOGLOBIN 13.8 G/DL (12.0-16.0); LYMPHOCYTES % (AUTO) 16.5 % (20.0-45.0); MEAN CORPUSCULAR VOLUME 85 FL (80-99); MONOCYTES % (AUTO) 5.2 % (1.0-10.0); NEUTROPHILS % (AUTO) 77.2 % (45.0-75.0); PLATELET COUNT 321 K/UL (150-450); RED BLOOD COUNT 5.03 M/UL (4.20-5.40); RED CELL DISTRIBUTION WIDTH 12.5 % (11.6-14.8); WHITE BLOOD COUNT 12.5 K/UL (4.8-10.8)
[2017-12-04 01:39] LABS: ANION GAP 11 mmol/L (5-15); BLOOD UREA NITROGEN 8 mg/dL (7-18); CALCIUM 9.2 MG/DL (8.5-10.1); CARBON DIOXIDE 24 MMOL/L (21-32); CHLORIDE 103 MMOL/L (98-107); CREATININE 0.7 MG/DL (0.55-1.30); POTASSIUM 3.1 MMOL/L (3.5-5.1); SODIUM 138 MMOL/L (136-145)
[2017-12-04 01:44] LABS: ALANINE AMINOTRANSFERASE 20 U/L (12-78); ALBUMIN 4.2 G/DL (3.4-5.0); ALKALINE PHOSPHATASE 94 U/L (46-116); ASPARTATE AMINO TRANSFERASE 15 U/L (15-37); BILIRUBIN,TOTAL 0.3 MG/DL (0.2-1.0)
[2017-12-04] MEDS ORDERED: traMADol 50mg tab ORAL ONE (02:15)
[2017-12-04] MEDS ORDERED: TRAMADOL HCL50 MG ORAL (02:33)
[2017-12-04 02:45] VITALS: BP 102/67
== END 2017-12-04 02:45 | disposition home or self-care (01) ==
LOC: EMR 00:45
DX: R10.32 Left lower quadrant pain (principal); Z88.0 Allergy status to penicillin; Z91.041 Radiographic dye allergy status; Z88.8 Allergy status to other drugs, medicaments and biological substances
CPT/HCPCS: 36415; 80053; 85025; 96374; 96376; 99284; J2270; J2405

== ENCOUNTER 2017-12-05 22:31 | Emergency (ER) | payer MEDICAID ==
[~2017-12-05] VITALS: Ht 160 cm; Wt 59.0 kg
[~2017-12-05 22:31] MED LIST changes: +TRAMADOL HCL50 MG ORAL
[2017-12-06] MEDS ORDERED: Norco 5mg/325mg tab ORAL ONE
[2017-12-06] MEDS ORDERED: Dicyclomine HCl 10mg/5ml oral soln ORAL ONE
[2017-12-06 00:20] LABS: APPEARANCE,URINE SLIGHTLY CLOUDY; BILIRUBIN, URINE NEGATIVE (NEGATIVE); GLUCOSE, URINE (UA) NEGATIVE (NEGATIVE); KETONES,URINE NEGATIVE (NEGATIVE); LEUKOCYTE ESTERASE ,URINE 2+ (NEGATIVE); NITRITE,URINE NEGATIVE (NEGATIVE); PH,URINE 6.5 (4.5-8.0); PROTEIN,URINE 1+ (NEGATIVE); UROBILINOGEN,URINE 1 MG/DL (0.0-1.0)
[2017-12-06 00:23] LABS: COLOR,URINE YELLOW
[2017-12-06] MEDS ORDERED: Morphine Sulfate 2mg/ml Inj IM ONE (00:30)
[2017-12-06] MEDS ORDERED: NORCO 5-325 TA1 EACH ORAL (01:26)
[2017-12-06] MEDS ORDERED: COLACE100 MG ORAL (01:26)
[2017-12-06] MEDS ORDERED: NITROFURANTOIN100 M2 ORAL (01:26)
[2017-12-06 01:40] VITALS: BP 101/69
--- NOTE | 2017-12-07 04:45 | Emergency Room Report ---
History of Present Illness General Chief Complaint: Pain Source: Patient Present Illness HPI The patient is a 22-year-old female who presented after increased left lower abdominal pain. Patient gradual onset of symptoms. Patient had denied recent visits emergency department and had recent CT imaging. Reports having some have fever up to 101. She had not been vomiting. She had previously been informed that she had ovarian cyst. Allergies: Coded Allergies: KETOROLAC (Verified Allergy, Mild, 12/04/17) pt c/o had rashehs after using. IODINE (Verified Allergy, Unknown, 07/17/17) PENICILLINS (Verified Allergy, Unknown, 07/17/17) Patient History Past Medical History: see triage record Now: No Reviewed Nursing Documentation: PMH: Agreed; PSxH: Agreed Nursing Documentation-PMH Past Medical History: No History, Except For Hx Asthma: Yes Review of Systems All Other Systems: negative except mentioned in HPI Physical Exam Vital Signs Date Time Temp Pulse Resp B/P (MAP) Pulse Ox O2 Delivery O2 Flow Rate FiO2 12/05/17 22:40 98.4 100 20 101/69 95 Room Air 98.4 Sp02 EP Interpretation: reviewed, normal General Appearance: normal inspection, well appearing, no apparent distress, alert, GCS 15 Head: atraumatic ENT: normal ENT inspection, hearing grossly normal, normal voice Neck: normal inspection, full range of motion, supple, no bony tend Respiratory: normal inspection, lungs clear, normal breath sounds, no respiratory distress, no retraction, no wheezing Cardiovascular #1: regular rate, rhythm, no edema Gastrointestinal: normal inspection, normal bowel sounds, soft, no guarding, tenderness - lower abdomen Genitourinary: no CVA tenderness Musculoskeletal: normal inspection, back normal, normal range of motion Neurologic: normal inspection, alert, oriented x3, 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 Differential diagnoses included ischemic bowel, appendicitis, perforated viscus, abdominal aortic aneurysm, inferior myocardial infarction, viral gastroenteritis, urinary tract infection among others.Because of complexity of patient's case laboratory testing was ordered. Patient was noted to have some evidence of a urinary tract infection. The patient is given prescription for Macrobid due to urinary infection. The patient was given prescription for her pain medications and given pain medications the emergency department. Patient was advised follow-up with a general surgeon for further evaluation. The patient is advised to return if she began having worsening pain persistent vomiting or other concerns. Labs Test 12/06/17 00:07 Urine Color Yellow Urine Appearance Slightly cloudy Urine pH 6.5 (4.5-8.0) Urine Specific Howes 1.015 (1.005-1.035) Urine Protein 1+ (NEGATIVE) Urine Glucose (UA) Negative (NEGATIVE) Urine Ketones Negative (NEGATIVE) Urine Blood 4+ (NEGATIVE) Urine Nitrite Negative (NEGATIVE) Urine Bilirubin Negative (NEGATIVE) Urine Urobilinogen 1 MG/DL (0.0-1.0) Urine Leukocyte Esterase 2+ (NEGATIVE) Urine RBC 10-15 /HPF (0 - 2) Urine WBC 2-4 /HPF (0 - 2) Urine Squamous Epithelial Cells Few /LPF (NONE/OCC) Urine Bacteria Few /HPF (NONE) Urine Mucus Few /LPF (NONE/OCC) Urine HCG, Qualitative Negative (NEGATIVE) Last Vital Signs Date Time Temp Pulse Resp B/P (MAP) Pulse Ox O2 Delivery O2 Flow Rate FiO2 12/06/17 01:40 98.4 20 101/69 95 Room Air 209.1 12/05/17 22:40 100 Status: improved Disposition: HOME, SELF-CARE Condition: Stable Scripts Nitrofurantoin Monohyd/M-Cryst* (MACROBID 100 MG*) 100 Mg Capsule 100 MG ORAL EVERY 12 HOURS, #20 CAP Prov: Ramiro Steve MD 12/06/17 Docusate Sodium* (COLACE*) 100 Mg Capsule 100 MG ORAL TWICE A DAY, #30 CAP Prov: Ramiro Steve MD 12/06/17 Hydrocodone Bit/Acetaminophen 5-325* (NORCO 5-325*) 1 Each Tablet 1 TAB ORAL Q6H PRN for For Pain, #20 TAB 0 Refills Prov: Ramiro Steve MD 12/06/17 Referrals: [facility],REFERRING (PCP) Matheus Noel Departure Forms: Return to Work Return to Work in (Days): 3 Patient Instructions: Abdominal Pain, Adult Ramiro Steve MD Dec 07, 2017 04:45
== END 2017-12-06 01:41 | disposition home or self-care (01) ==
LOC: EMR 22:57
DX: R10.32 Left lower quadrant pain (principal); N39.0 Urinary tract infection, site not specified; J45.909 Unspecified asthma, uncomplicated; Z88.0 Allergy status to penicillin; Z88.8 Allergy status to other drugs, medicaments and biological substances
CPT/HCPCS: 81003; 81025; 96372; 99283; J2270

== ENCOUNTER 2018-02-10 20:57 | Emergency (ER) | payer MEDICAID ==
[~2018-02-10] VITALS: Ht 160 cm; Wt 59.0 kg
[~2018-02-10 20:57] MED LIST changes: +COLACE100 MG ORAL; +NITROFURANTOIN100 M2 ORAL; +NORCO 5-325 TA1 EACH ORAL
[2018-02-10 21:10] VITALS: BP 128/73
--- NOTE | 2018-02-10 22:08 | Emergency Room Report ---
History of Present Illness General Chief Complaint: Laceration Source: Patient Present Illness HPI Is a 22-year-old female presents with a laceration to her left arm. She had control implants placed a couple of years ago. She was at the [employer] office to have it remove. She said the nurse was unable to get it out. She was supposed to follow-up on Monday to have it done again. Tonight she was getting something out of the pantry and that area was snagged on a shelf. It causes more laceration. She was concerned so she came in. She says she see the implant poking out. Denies any other injury. Pain is throbbing in nature. 5 out of 10. Allergies: Coded Allergies: KETOROLAC (Verified Allergy, Mild, 12/04/17) pt c/o had rashehs after using. IODINE (Verified Allergy, Unknown, 07/17/17) PENICILLINS (Verified Allergy, Unknown, 07/17/17) Patient History Past Medical History: see triage record, old chart reviewed Past Surgical History: other Pertinent Family History: none Social History: Denies: smoking Last Menstrual Period: 02/08/18 - light spotting/ control Now: No Immunizations: other Reviewed Nursing Documentation: PMH: Agreed; PSxH: Agreed Nursing Documentation-PMH Past Medical History: No History, Except For Hx Asthma: Yes Review of Systems Eye: Denies: eye pain, blurred vision ENT: Denies: ear pain, nose congestion, throat swelling Respiratory: Denies: cough, shortness of breath Cardiovascular: Denies: chest pain, palpitations Gastrointestinal: Denies: abdominal pain, diarrhea, nausea, vomiting Musculoskeletal: Denies: back pain, joint pain Skin: Denies: rash Neurological: Denies: headache, numbness Endocrine: Denies: increased thirst, increased urine Hematologic/Lymphatic: Denies: easy bruising All Other Systems: negative except mentioned in HPI Physical Exam Vital Signs Date Time Temp Pulse Resp B/P (MAP) Pulse Ox O2 Delivery O2 Flow Rate FiO2 02/10/18 21:02 98.2 89 13 128/73 98 Room Air vitals normal Sp02 EP Interpretation: reviewed, normal General Appearance: well appearing, no apparent distress, alert Head: normocephalic, atraumatic Eyes: bilateral eye PERRL, bilateral eye EOMI ENT: hearing grossly normal, normal pharynx Neck: full range of motion, supple, no meningismus Respiratory: chest non-tender, lungs clear, normal breath sounds Cardiovascular #1: regular rate, rhythm, no murmur Gastrointestinal: normal bowel sounds, non tender, no mass, no organomegaly, no bruit, non-distended Musculoskeletal: other - Left upper arm with a 2 cm laceration. Pushing on the implant I can see tip of it. No other foreign body. Psychiatric: mood/affect normal Skin: warm/dry Procedures Laceration/Wound Repair Laceration/Wound Repair : Consent: Verbal Wound Location: upper extremity Wound's Depth, Shape: linear Wound Length (cm): 2 Wound Explored: clean Irrigated w/ Saline (ccs): 500 Betadine Prep?: Yes Anesthesia: 1% Lidocaine Volume Anesthetic (ccs): 3 Wound Repaired With: sutures Suture Size/Type: 4:0, proline Number of Sutures: 3 Patient Tolerated: Well Complications: None Progress I removed the control implant prior to suturing the wound. Patient tolerated procedure without a problem. Medical Decision Making Diagnostic Impression: Primary Impression: Laceration of left upper arm Qualified Codes: S41.112A - Laceration without foreign body of left upper arm , initial encounter Additional Impression: Encounter for removal of subdermal contraceptive implant ER Course Patient here for control implant removal and laceration repair. No other foreign body. Low risk for infection. We'll discharge home. Last Vital Signs Date Time Temp Pulse Resp B/P (MAP) Pulse Ox O2 Delivery O2 Flow Rate FiO2 02/10/18 21:10 98.2 68 13 128/73 98 Room Air Status: improved Disposition: HOME, SELF-CARE Condition: Stable Referrals: [facility],REFERRING (PCP) Patient Instructions: Laceration Care, Adult Additional Instructions: Follow-up your doctor in 7 days for suture removal. Return if symptom worsen. Return for evidence of infection. Catarino Epperson MD Feb 10, 2018 22:07
[2018-02-10 22:13] VITALS: BP 132/74
[2018-02-10 22:14] VITALS: BP 132/74
== END 2018-02-10 22:19 | disposition home or self-care (01) ==
LOC: EMR 21:34
DX: S41.112A Laceration without foreign body of left upper arm, initial encounter (principal); W22.8XXA Striking against or struck by other objects, initial encounter; Y92.009 Unspecified place in unspecified non-institutional (private) residence as the place of occurrence of the external cause
CPT/HCPCS: 12001; 99283; Z7502

== ENCOUNTER 2018-06-07 14:44 | Emergency (ER) | payer MEDICAID ==
[~2018-06-07] VITALS: Ht 160 cm; Wt 59.0 kg
[2018-06-07 14:50] VITALS: BP 122/75
--- NOTE | 2018-06-07 14:50 | NUR ---
ED Nurse Note: pt walked in to ER c/o 9/10 LLQ pain. pt aao x4 and calm but gramicing with due to pain. skin clean and intact. LLQ no distension noted. pt denied N/V/D. pt was able to provide urine sample. pt is unsure about .
[2018-06-07] MEDS ORDERED: Morphine Sulfate 4mg/ml Inj (IV USE ONLY) IVP ONE ×2 (15:15→16:45)
--- NOTE | 2018-06-07 15:20 | NUR ---
ED Nurse Note: US tech is informed about US order.
--- NOTE | 2018-06-07 15:24 | Emergency Room Report ---
History of Present Illness General Chief Complaint: Abdominal Pain Source: Medical Record ([facility]) Present Illness HPI 22-year-old female patient presents the ER complaining of left lower quadrant pain times 1 day. Reports symptoms began yesterday evening and is increased in intensity before subsiding. Reports symptoms began again today. Reports history of similar symptoms in the past. Reports history of ovarian cyst. Denies dysuria, hematuria, vaginal bleeding, vaginal discharge. Reports left lower quadrant pain radiates to her suprapubic region. Denies fever, vomiting, chest pain, shortness of breath. Denies vomiting or diarrhea. Reports last bowel movement earlier today, denies blood in stool. Reports able to pass flatus. Denies other aggravating or relieving factors. ([facility]) Allergies: Coded Allergies: KETOROLAC (Verified Allergy, Mild, 12/04/17) pt c/o had rashehs after using. IODINE (Verified Allergy, Unknown, 07/17/17) PENICILLINS (Verified Allergy, Unknown, 07/17/17) Patient History Past Medical History: see triage record Last Menstrual Period: 05/15 Reviewed Nursing Documentation: PMH: Agreed; PSxH: Agreed ([facility]) Nursing Documentation-PMH Past Medical History: No History, Except For Hx Cardiac Problems: No - ovarian cyst Hx Asthma: Yes ([facility]) Review of Systems All Other Systems: negative except mentioned in HPI ([facility]) Physical Exam Vital Signs Date Time Temp Pulse Resp B/P (MAP) Pulse Ox O2 Delivery O2 Flow Rate FiO2 06/07/18 14:50 98.1 108 18 122/75 98 Room Air Sp02 EP Interpretation: reviewed, normal General Appearance: well appearing, no apparent distress, alert, GCS 15, non- toxic Head: normocephalic, atraumatic Eyes: bilateral eye normal inspection, bilateral eye PERRL ENT: hearing grossly normal, normal pharynx, no angioedema, normal voice, uvula midline, moist mucus membranes Neck: full range of motion Respiratory: lungs clear, normal breath sounds, no rhonchi, no respiratory distress, no accessory muscle use, no wheezing, speaking full sentences Cardiovascular #1: regular rate, rhythm, no edema Gastrointestinal: soft, no mass, non-distended, no guarding, no rebound, tenderness, other - Negative Rovsing, negative obturator, negative heel strike Genitourinary: no CVA tenderness, deferred Musculoskeletal: back normal, digits/nails normal, gait/station normal, normal range of motion, non-tender Psychiatric: mood/affect normal Skin: no rash ([facility]) Medical Decision Making PA Attestation Dr. Li is my supervising Physician whom patient management has been discussed with. ([facility]) Diagnostic Impression: Primary Impression: Urinary tract infection Additional Impressions: Yeast infection Ovarian cyst Abdominal pain Free fluid in pelvis Nabothian cyst ER Course Pt. presents to the ED c/o LLQ abdominal pain. Ddx considered but are not limited to UTI, diverticulitis, ovarian torsion, ovarian cyst, uterine fibroid. Begin abdominal pain workup. Provided patient with pain medication. Low suspicion for appendicitis, Rovsing, negative obturator. Denies diarrhea or blood in stool, suspicion for diverticulitis, Does not require CT abdomen at this time. Vital signs: are WNL, pt. is afebrile ORDERS: CBC, CMP, Lipase, UA, US and medication. ER COURSE: Provide with pain medication and IV fluids. CBC and CMP unremarkable Lipase WNL UA shows elevated leukocyte esterase and WBCs, will provide patient with treatment for UTI at discharge. Elevated yeast, provide patient with dose of fluconazole in the ER. Urine negative Discuss results with patient Abdominal US negative Pelvic US via US shift lab technician Panovarian cysts bilaterally, no torsion, pelvic free fluid, nabothian cyst Via [facility]: Comparison: CT abdomen and pelvis from 11/16/17 Uterus and ovaries are unremarkable. No active ovarian torsion. Trace of free pelvic fluid is likely physiologic 2 mm nabothian cyst Patient reports relief of pain symptoms with medication since arrival to the ER. Provided with medication at discharge. May cause drowsiness, do not take prior to drinking, driving, operating heavy machinery. ER precautions given. Followup with OBGYN and PCP. Patient seen and evaluated by Dr. Li who agrees with assessment and treatment plan. DISCHARGE: At this time pt. is stable for d/c to home. Patient resting comfortably, in no acute distress, nontoxic appearing, talking without difficulty. Rx provided to patient. Patient to take medications as instructed Will provide with patient care instructions and any necessary prescriptions. Care plan and follow-up instructions provided. Patient instructed to follow-up with primary care provider in 3 - 5 days. Patient questions asked and answered. Patient reports understanding and agreement to treatment plan. ER precautions given. Patient instructed to return to ER immediately for any new or worsening of symptoms including but not limited to increasing SOB, persistent fever, worsening of pain symptoms, intractable vomiting, blood in stool, urine, and/or emesis. - Please note that this Emergency Department Report was dictated using [employer]datastage architect technology software, occasionally this can lead to erroneous entry secondary to interpretation by the dictation equipment. Labs Test 06/07/18 15:40 White Blood Count 11.7 K/UL (4.8-10.8) Red Blood Count 4.49 M/UL (4.20-5.40) Hemoglobin 13.1 G/DL (12.0-16.0) Hematocrit 39.1 % (37.0-47.0) Mean Corpuscular Volume 87 FL (80-99) Mean Corpuscular Hemoglobin 29.1 PG (27.0-31.0) Mean Corpuscular Hemoglobin Concent 33.4 G/DL (32.0-36.0) Red Cell Distribution Width 12.8 % (11.6-14.8) Platelet Count 336 K/UL (150-450) Mean Platelet Volume 7.1 FL (6.5-10.1) Neutrophils (%) (Auto) 69.7 % (45.0-75.0) Lymphocytes (%) (Auto) 23.6 % (20.0-45.0) Monocytes (%) (Auto) 5.2 % (1.0-10.0) Eosinophils (%) (Auto) 0.7 % (0.0-3.0) Basophils (%) (Auto) 0.9 % (0.0-2.0) Urine Color Pale yellow Urine Appearance Clear Urine pH 6 (4.5-8.0) Urine Specific [place] 1.015 (1.005-1.035) Urine Protein Negative (NEGATIVE) Urine Glucose (UA) Negative (NEGATIVE) Urine Ketones Negative (NEGATIVE) Urine Blood 2+ (NEGATIVE) Urine Nitrite Negative (NEGATIVE) Urine Bilirubin Negative (NEGATIVE) Urine Urobilinogen Normal MG/DL (0.0-1.0) Urine Leukocyte Esterase 2+ (NEGATIVE) Urine RBC 2-4 /HPF (0 - 2) Urine WBC 10-15 /HPF (0 - 2) Urine Squamous Epithelial Cells Many /LPF (NONE/OCC) Urine Bacteria Few /HPF (NONE) Urine Yeast Occasional /HPF (NONE) Urine HCG, Qualitative Negative (NEGATIVE) Sodium Level 136 MMOL/L (136-145) Potassium Level 3.6 MMOL/L (3.5-5.1) Chloride Level 103 MMOL/L (98-107) Carbon Dioxide Level 23 MMOL/L (21-32) Anion Gap 10 mmol/L (5-15) Blood Urea Nitrogen 12 mg/dL (7-18) Creatinine 0.7 MG/DL (0.55-1.30) Estimat Glomerular Filtration Rate > 60 mL/min (>60) Glucose Level 91 MG/DL (74-106) Calcium Level 9.5 MG/DL (8.5-10.1) Total Bilirubin 0.3 MG/DL (0.2-1.0) Aspartate Amino Transf (AST/SGOT) 14 U/L (15-37) Alanine Aminotransferase (ALT/SGPT) 18 U/L (12-78) Alkaline Phosphatase 96 U/L (46-116) Total Protein 8.7 G/DL (6.4-8.2) Albumin 4.3 G/DL (3.4-5.0) Globulin 4.4 g/dL Albumin/Globulin Ratio 1.0 (1.0-2.7) Lipase 138 U/L (73-393) ([facility] ER Course Please see above note. Patient examined by me. I agree with treatment plan. (Keith Li MD) CT/MRI/US Diagnostic Results CT/MRI/US Diagnostic Results #1: Imaging Test Ordered: Pelvic ultrasound Impression via US shift lab technician: Panovarian cysts bilaterally, no torsion, pelvic free fluid, nabothian cyst Via [facility]: Comparison: CT abdomen and pelvis from 11/16/17 Uterus and ovaries are unremarkable. No active ovarian torsion. Trace of free pelvic fluid is likely physiologic [address]/MRI/US Diagnostic Results #2: Imaging Test Ordered: Abdominal ultrasound Impression Negative ([facility] Last Vital Signs Date Time Temp Pulse Resp B/P (MAP) Pulse Ox O2 Delivery O2 Flow Rate FiO2 06/07/18 14:50 98.1 108 18 122/75 98 Room Air Status: improved ([facility]) Disposition: HOME, SELF-CARE Condition: Stable Scripts Acetaminophen* (TYLENOL EXTRA STRENGTH*) 500 Mg Tablet 500 MG ORAL Q8H PRN for Prn Headache/Temp > 101, #30 TAB 0 Refills Prov: Moses Witt 06/07/18 Acetaminophen With Codeine (T#3) (TYLENOL #3 TAB*) Y Tab 1 TAB ORAL Q4H PRN for For Pain, #8 TAB Prov: Moses Witt 06/07/18 Nitrofurantoin Monohyd/M-Cryst* (MACROBID 100 MG*) 100 Mg Capsule 100 MG ORAL EVERY 12 HOURS for 7 Days, #14 CAP Prov: Moses Witt 06/07/18 Patient Instructions: Abdominal Pain, Adult, Ovarian Cyst, [id number], Urinary Tract Infection, [id number], Vaginal Yeast Infection, Adult Additional Instructions: Followup with primary care provider and followup with and./or OBGYN. Drink plenty of fluids. Take medications as directed. May cause drowsiness, do not take prior to drinking, driving machinery. Patient questions asked and answered. ER precautions given, patient instructed to return to ER immediately for any new or worsening of symptoms. [facility] Jun 07, 2018 15:24 Keith Li MD Jun 09, 2018 02:49
[2018-06-07 15:56] LABS: APPEARANCE,URINE CLEAR; BILIRUBIN, URINE NEGATIVE (NEGATIVE); COLOR,URINE PALE YELLOW; GLUCOSE, URINE (UA) NEGATIVE (NEGATIVE); KETONES,URINE NEGATIVE (NEGATIVE); LEUKOCYTE ESTERASE ,URINE 2+ (NEGATIVE); NITRITE,URINE NEGATIVE (NEGATIVE); PH,URINE 6 (4.5-8.0); PROTEIN,URINE NEGATIVE (NEGATIVE); UROBILINOGEN,URINE NORMAL MG/DL (0.0-1.0)
[2018-06-07 16:09] LABS: BASOPHILS % (AUTO) 0.9 % (0.0-2.0); EOSINOPHILS % (AUTO) 0.7 % (0.0-3.0); HEMATOCRIT 39.1 % (37.0-47.0); HEMOGLOBIN 13.1 G/DL (12.0-16.0); LYMPHOCYTES % (AUTO) 23.6 % (20.0-45.0); MEAN CORPUSCULAR VOLUME 87 FL (80-99); MONOCYTES % (AUTO) 5.2 % (1.0-10.0); NEUTROPHILS % (AUTO) 69.7 % (45.0-75.0); PLATELET COUNT 336 K/UL (150-450); RED BLOOD COUNT 4.49 M/UL (4.20-5.40); RED CELL DISTRIBUTION WIDTH 12.8 % (11.6-14.8); WHITE BLOOD COUNT 11.7 K/UL (4.8-10.8)
[2018-06-07 16:15] LABS: ANION GAP 10 mmol/L (5-15); BLOOD UREA NITROGEN 12 mg/dL (7-18); CALCIUM 9.5 MG/DL (8.5-10.1); CARBON DIOXIDE 23 MMOL/L (21-32); CHLORIDE 103 MMOL/L (98-107); CREATININE 0.7 MG/DL (0.55-1.30); POTASSIUM 3.6 MMOL/L (3.5-5.1); SODIUM 136 MMOL/L (136-145)
[2018-06-07 16:27] LABS: ALANINE AMINOTRANSFERASE 18 U/L (12-78); ALBUMIN 4.3 G/DL (3.4-5.0); ALKALINE PHOSPHATASE 96 U/L (46-116); ASPARTATE AMINO TRANSFERASE 14 U/L (15-37); BILIRUBIN,TOTAL 0.3 MG/DL (0.2-1.0)
[2018-06-07] MEDS ORDERED: Fluconazole 100mg tab ORAL ONE (16:30)
[2018-06-07 16:50] VITALS: BP 135/75
--- NOTE | 2018-06-07 17:00 | NUR ---
ED Nurse Note: US done at bedside.
--- NOTE | 2018-06-07 17:14 | Diagnostic Imaging Report ---
Indication: Abdominal pain Technique: Robledo-scale and duplex images of the upper abdomen were obtained Comparison: For 13/06/2017 Findings: Gallbladder is unremarkable, without stones, wall thickening, nor pericholecystic fluid. Sonographic Choi's sign is negative. Common bile duct measures 3 mm in diameter. No intrahepatic biliary ductal dilatation. Liver demonstrates normal echogenicity, no focal abnormality. Portal vein and hepatic veins are patent. Pancreas is unremarkable. Spleen is unremarkable. Left kidney measures 9.7 cm in length. Right kidney measures 10.7 cm length. Both kidneys demonstrate normal echogenicity. There is no hydronephrosis. No focal abnormality . Non-aneurysmal abdominal aorta . Previously reported right renal cysts are not evident on the current exam. No significant change otherwise Impression: Negative
--- NOTE | 2018-06-07 18:09 | NUR ---
ED Nurse Note: called US for the result. not answering. will call again.
[2018-06-07 18:50] VITALS: BP 107/68
[2018-06-07] MEDS ORDERED: TYLENOL EXTRA500 MG ORAL (19:27)
[2018-06-07] MEDS ORDERED: NITROFURANTOIN100 M2 ORAL (19:27)
[2018-06-07] MEDS ORDERED: ACETAMINOPHEN-1 EAC1 ORAL (19:27)
--- NOTE | 2018-06-07 19:50 | NUR ---
HAND-OFF: Report given to GERARDO Montano. pt is talking to [facility] at this moment.
[2018-06-07 20:00] VITALS: BP 109/67
--- NOTE | 2018-06-07 20:15 | NUR ---
ER DISCHARGE NOTE: Patient is cleared to be discharged per ERMD, pt is aox4, on room air, with stable vital signs. pt was given dc and prescription instructions, pt was able to verbalize understanding, pt id band and iv site removed without complications. pt is able to ambulate with steady gait. pt took all belongings.
--- NOTE | 2018-06-08 10:03 | Diagnostic Imaging Report ---
Indication: Pelvic pain, negative urine test Technique: Transabdominal and transvaginal images. Doppler interrogation of the bilateral ovaries Comparison: 11/16/2017, abdomen pelvis CT dated 11/16/2017 Findings: Uterus measures 7.9 cm length by 3.9 cm AP. Endometrium measures 12 mm thick. No myometrial abnormality. Small cystic areas noted in the lower uterine segment/cervix. The right ovary measures 3 cm length. Left ovary measures 3.7 cm length. Both ovaries demonstrate normal blood flow. Previously reported left paraovarian cyst is not evident on this exam, although may be visible on transverse uterine cine images. There is trace free fluid Impression: No acute abnormality Small cervical nabothian cysts Trace free fluid, presumably physiologic Noted inconclusive visualization of previously demonstrated left paraovarian cyst This agrees with the preliminary interpretation provided overnight by [facility].
== END 2018-06-07 20:15 | disposition home or self-care (01) ==
LOC: EMR 15:25
DX: N39.0 Urinary tract infection, site not specified (principal); B37.9 Candidiasis, unspecified; N88.8 Other specified noninflammatory disorders of cervix uteri; N83.209 Unspecified ovarian cyst, unspecified side; R10.32 Left lower quadrant pain; J45.909 Unspecified asthma, uncomplicated; Z88.0 Allergy status to penicillin; Z88.8 Allergy status to other drugs, medicaments and biological substances
CPT/HCPCS: 36415; 76700; 76830; 76856; 80053; 81003; 81025; 83690; 85025; 87086; 96361; 96374; 96375; 96376; 99284; J2270; J2405

== ENCOUNTER 2018-09-28 03:29 | Emergency (ER) | payer MEDICAID ==
[~2018-09-28] VITALS: Ht 160 cm; Wt 59.0 kg
[~2018-09-28 03:29] MED LIST changes: +ACETAMINOPHEN-1 EAC1 ORAL
[2018-09-28 03:50] VITALS: BP 120/70
--- NOTE | 2018-09-28 03:50 | NUR ---
ED Nurse Note: pt walked in c/o headache and neck and back pain s/p fall, pt states she was getting up trying to go to bathroom and fell backwards when she stepped on the water on the ground, denies loc. no deformity nor sx trauma nor open wound noted. pt reports nausea. will cont monitor.
[2018-09-28] MEDS ORDERED: Metoclopramide 10mg/2ml Inj IVP ONE (04:00)
[2018-09-28] MEDS ORDERED: oxyCODONE HCL/Acetaminophen 5/325mg PO ONE (04:00)
[2018-09-28] MEDS ORDERED: DiphenhydrAMINE 50mg/ml Inj IVP ONE (04:00)
--- NOTE | 2018-09-28 04:05 | Emergency Room Report ---
History of Present Illness General Chief Complaint: Multiple Trauma/Fall Source: Patient Present Illness HPI The patient presents after a fall in a bathroom. She remembers hearing the sound of hitting her head. She believes she lost consciousness. She has been having diplopia and severe pain in the left occipital area of her head. She denies neck pain at this time but has lower back pain as she fell backwards onto her back also. She had a concussion in high school but has not had recent head trauma. She feels nauseated at this time. She has not vomited. The pain is 12/10. The patient last period was September 05. She had a doctor's appointment last week and states that she is not at this time. No other somatic complaints. She has a history of asthma but denies wheezing. She has a history of an ovarian cyst. Allergies: Coded Allergies: KETOROLAC (Verified Allergy, Mild, 12/04/17) pt c/o had rashehs after using. IODINE (Verified Allergy, Unknown, 07/17/17) PENICILLINS (Verified Allergy, Unknown, 07/17/17) Patient History Past Medical History: see triage record Social History Narrative Here with boyfriend Last Menstrual Period: 09/06/18 Now: No Reviewed Nursing Documentation: PMH: Agreed; PSxH: Agreed Nursing Documentation-PMH Past Medical History: No History, Except For Hx Cardiac Problems: No - ovarian cyst Hx Asthma: Yes Review of Systems All Other Systems: negative except mentioned in HPI Physical Exam Vital Signs Date Time Temp Pulse Resp B/P (MAP) Pulse Ox O2 Delivery O2 Flow Rate FiO2 09/28/18 03:43 98.1 112 18 120/70 (87) 96 Room Air Sp02 EP Interpretation: reviewed, normal General Appearance: well appearing, no apparent distress, GCS 15 Head: normocephalic, other - Her left occiput Eyes: bilateral eye normal inspection, bilateral eye PERRL, bilateral eye EOMI ENT: moist mucus membranes Neck: full range of motion, supple, no bony tend, tender - Bilaterally Respiratory: chest non-tender, lungs clear, normal breath sounds Cardiovascular #1: regular rate, rhythm Cardiovascular #2: 2+ radial (R) Gastrointestinal: normal inspection, normal bowel sounds, non tender, no mass, non-distended Musculoskeletal: gait/station normal, normal range of motion, tender - Lumbar area Neurologic: alert, oriented x3, cooker process cheese III-XII nml as tested, motor strength/tone normal, DTRs symmetric, sensory intact, cerebellar normal, normal gait, speech normal Psychiatric: mood/affect normal Skin: no rash Medical Decision Making Diagnostic Impression: Primary Impression: Concussion Qualified Codes: S06.0X1A - Concussion with loss of consciousness of 30 minutes or less, initial encounter Additional Impression: Back contusion Qualified Codes: S20.229A - Contusion of unspecified back wall of thorax, initial encounter ER Course Patient presents post head injury with loss of consciousness and persistent diplopia nausea. She remembers the sound of the fall and hitting her head. Differential includes concussion, head injury, brain bleed, muscle muscle and back contusion amongst others. Based on studies the risk of intracranial bleed is extremely low. I discussed this with her she still is requesting a CAT scan of her head. When offered pills shots are IV the patient requested IV. Of note she has ketorolac as an allergy. She will be treated with Reglan, Benadryl and Percocet p.o. CT of the head unremarkable. Urinalysis unremarkable. Patient is improved with treatment. She states the pain is greatly improved. Discussed treatment plan with patient and boyfriend. Patient stable for outpatient observation and treatment. Laboratory Tests Test 09/28/18 04:20 Urine Color Pale yellow Urine Appearance Slightly cloudy Urine pH 6 (4.5-8.0) Urine Specific [place] 1.020 (1.005-1.035) Urine Protein 1+ (NEGATIVE) H Urine Glucose (UA) Negative (NEGATIVE) Urine Ketones Negative (NEGATIVE) Urine Blood 3+ (NEGATIVE) H Urine Nitrite Negative (NEGATIVE) Urine Bilirubin Negative (NEGATIVE) Urine Urobilinogen Normal MG/DL (0.0-1.0) Urine Leukocyte Esterase 2+ (NEGATIVE) H Urine RBC 10-15 /HPF (0 - 2) H Urine WBC 10-15 /HPF (0 - 2) H Urine Squamous Epithelial Cells Many /LPF (NONE/OCC) H Urine Bacteria Moderate /HPF (NONE) H Urine HCG, Qualitative Negative (NEGATIVE) CT/MRI/US Diagnostic Results CT/MRI/US Diagnostic Results : Imaging Test Ordered: head Impression neg Status: improved Disposition: HOME, SELF-CARE Condition: Improved Scripts Methocarbamol* (ROBAXIN*) 500 Mg Tablet 500 MG PO TID, #10 TAB 0 Refills Prov: Keith Li MD 09/28/18 Ibuprofen* (MOTRIN*) 600 Mg Tablet 600 MG ORAL Q6H PRN for For Pain, #20 TAB 0 Refills Prov: Keith Li MD 09/28/18 Tramadol Hcl* (ULTRAM*) 50 Mg Tablet 50 MG ORAL Q6H PRN for For Pain, #8 TAB 0 Refills Prov: Keith Li MD 09/28/18 Referrals: [facility],REFERRING (PCP) Keith Li MD Sep 28, 2018 04:05
[2018-09-28 04:29] LABS: BILIRUBIN, URINE NEGATIVE (NEGATIVE); COLOR,URINE PALE YELLOW; GLUCOSE, URINE (UA) NEGATIVE (NEGATIVE); KETONES,URINE NEGATIVE (NEGATIVE); NITRITE,URINE NEGATIVE (NEGATIVE); PH,URINE 6 (4.5-8.0); PROTEIN,URINE 1+ (NEGATIVE); UROBILINOGEN,URINE NORMAL MG/DL (0.0-1.0)
[2018-09-28 04:44] LABS: APPEARANCE,URINE SLIGHTLY CLOUDY; LEUKOCYTE ESTERASE ,URINE 2+ (NEGATIVE)
--- NOTE | 2018-09-28 04:50 | NUR ---
ED Nurse Note: pt back from CT, resting at this time, boyfriend at the bedside, will cont monitor, bed lowest position w/ siderail, extra warm blanket provided for comfort.
[2018-09-28] MEDS ORDERED: ROBAXIN500 MG PO (06:18)
[2018-09-28] MEDS ORDERED: IBUPROFEN600 MG ORAL (06:18)
[2018-09-28] MEDS ORDERED: TRAMADOL HCL50 MG ORAL (06:18)
[2018-09-28 06:33] VITALS: BP 115/56
--- NOTE | 2018-09-28 06:33 | NUR ---
ED Nurse Note: Pt cleared to be d/c per ERMD, pt discharge and aftercare instruction w/ prescription provided, pt education done via discussion and handout, pt advised to follow up with pcp or return to ed if changes in condition, pt verbalized understanding and agrees with plan, vss, ambulatory w/ steady gait left w/ all belongings, accompanied by boyfriend, iv d/c and id band removed.
--- NOTE | 2018-09-28 11:51 | Diagnostic Imaging Report ---
Indication: Head trauma headache Technique: Contiguous 5 mm thick transaxial imaging of the head obtained in a Siemens Sensation [address] scanner. Soft tissue and bone windows generated. Automatic Exposure Control was utilized. Total Dose length Product (DLP): 1393.[address] Dose Index Volume (CTDIvol): 70.38 mGy Comparison: none Findings: The size and configuration of the cortical sulci, basal cisterns, and ventricles are within normal limits for age. There is no mass effect, midline shift, or edema identified. There is no evidence of acute hemorrhage or abnormal intra-axial or extra-axial fluid collections. The bones and soft tissues are unremarkable. Impression: No mass effect, edema or acute bleed. [facility] has communicated the preliminary results to the Emergency Department. Their findings are largely concordant with this report. The CT scanner at [facility] is accredited by the [employer] and the scans are performed using dose optimization techniques as appropriate to a performed exam including Automatic Exposure control.
== END 2018-09-28 06:33 | disposition home or self-care (01) ==
LOC: EMR 03:54
DX: S06.0X1A Concussion with loss of consciousness of 30 minutes or less, initial encounter (principal); S20.229A Contusion of unspecified back wall of thorax, initial encounter; J45.909 Unspecified asthma, uncomplicated; W01.198A Fall on same level from slipping, tripping and stumbling with subsequent striking against other object, initial encounter; Y93.9 Activity, unspecified; Y92.012 Bathroom of single-family (private) house as the place of occurrence of the external cause; Z88.0 Allergy status to penicillin; Z88.8 Allergy status to other drugs, medicaments and biological substances; Z85.43 Personal history of malignant neoplasm of ovary
CPT/HCPCS: 70450; 81001; 81025; 87086; 96374; 96375; 99284; J1200; J2765

== ENCOUNTER 2018-10-03 12:09 | Emergency (ER) | payer MEDICAID ==
[~2018-10-03] VITALS: Ht 160 cm; Wt 59.0 kg
[~2018-10-03 12:09] MED LIST changes: +ROBAXIN500 MG PO
[2018-10-03 12:50] VITALS: BP 118/78
--- NOTE | 2018-10-03 12:50 | NUR ---
ED Nurse Note: pt was seen monday for head injury. relates continued headache, nausea and feels dizziness. states s/s same as monday and not resolving. pt amb steady gait and a/ox4 at triage. no active vomiting at triage, no resp distress. pt was seen by keisha carpenter. will continue to monitor.
--- NOTE | 2018-10-03 13:00 | NUR ---
ED Nurse Note: pt medicated as orderd. pt able to tolerate. will continue to monitor
--- NOTE | 2018-10-03 13:05 | NUR ---
ED Nurse Note: pt went to ct with tech
[2018-10-03 13:13] LABS: APPEARANCE,URINE SLIGHTLY CLOUDY; BILIRUBIN, URINE NEGATIVE (NEGATIVE); COLOR,URINE PALE YELLOW; GLUCOSE, URINE (UA) NEGATIVE (NEGATIVE); KETONES,URINE NEGATIVE (NEGATIVE); LEUKOCYTE ESTERASE ,URINE 3+ (NEGATIVE); NITRITE,URINE NEGATIVE (NEGATIVE); PH,URINE 6.5 (4.5-8.0); PROTEIN,URINE NEGATIVE (NEGATIVE); UROBILINOGEN,URINE NORMAL MG/DL (0.0-1.0)
--- NOTE | 2018-10-03 13:15 | NUR ---
ED Nurse Note: pt went back from ct with tech
[2018-10-03] MEDS ORDERED: Isovue-370 150ml vial INJ PRN (13:30)
--- NOTE | 2018-10-03 13:54 | Diagnostic Imaging Report ---
Indication: Severe neck pain, status post trauma Technique: Spiral acquisitions obtained through the cervical spine. No IV contrast utilized. Multiplanar reconstructions were generated. Total dose length product 1577.16 mGycm. CTDIvol(s) 70.38,10.35 mGy. Dose reduction achieved using automated exposure control. Comparison: none Findings: Bony alignment is normal. No prevertebral soft tissue swelling. Vertebral body heights are preserved. The disc spaces are preserved. No acute fractures. No dislocations. No significant disc bulge or protrusion, spinal stenosis, or neural foraminal stenosis. There are numerous prominent bilateral cervical nodes, with jugulodigastric nodes of up to 2 cm long axis dimension demonstrated on the left. The upper aerodigestive tract is unremarkable. Impression: No acute bony trauma Bilateral prominent cervical nodes, left greater than right, nonspecific. Correlate with clinical findings The CT scanner at [facility] is accredited by the [employer] and the scans are performed using protocols designed to limit radiation exposure to as low as reasonably achievable to attain images of sufficient resolution adequate for diagnostic evaluation.
--- NOTE | 2018-10-03 13:56 | Diagnostic Imaging Report ---
Indications: Head injury, vomiting, blurry vision, severe neck pain Technique: Spiral acquisitions obtained through the brain. Angled axial and coronal 5 x 5 mm slices were reconstructed. Total dose length product 1577.16 mGycm. CTDI vol(s) 70.38,10.35 mGy. Dose reduction achieved using automated exposure control Comparison: 09/28/2018 Findings: No acute intracranial hemorrhage or edema, mass effect, nor midline shift. Normal rodriguez-white differentiation. Normal-sized ventricles and extra-axial CSF spaces. Visualized orbits and sinuses are unremarkable. The mastoids are clear. The calvarium is intact. No significant interim change Impression: Negative The CT scanner at [facility] is accredited by the [employer] and the scans are performed using protocols designed to limit radiation exposure to as low as reasonably achievable to attain images of sufficient resolution adequate for diagnostic evaluation.
--- NOTE | 2018-10-03 13:57 | Emergency Room Report ---
History of Present Illness General Chief Complaint: Headache Source: Patient (Andreina Lee) Present Illness HPI 22 YO Female presents to the ED c/o progressive worsening of her symptoms. / in severity MENDOZA with photophobia, new onset of vomiting. diplopia and midline neck pain. s/p mechanical slip and fall onto tile 5 days ago with LOC. She was dx'd with a concussion. Denies additional trauma since initial visit. pt. has been taking Motrin, Zofran and Robaxin somewhat regular. She states the Robaxin makes her sleepy so she does not take it during the day when she is watching her daughter. (Andreina Lee) Allergies: Coded Allergies: KETOROLAC (Verified Allergy, Mild, 12/04/17) pt c/o had rashehs after using. IODINE (Verified Allergy, Unknown, 07/17/17) PENICILLINS (Verified Allergy, Unknown, 07/17/17) Patient History Past Medical History: see triage record Past Surgical History: none Pertinent Family History: none Last Menstrual Period: 6-15 Now: No Reviewed Nursing Documentation: PMH: Agreed; PSxH: Agreed (Andreina Lee) Nursing Documentation-PMH Past Medical History: No History, Except For Hx Cardiac Problems: No - ovarian cyst Hx Asthma: Yes (Andreina Lee) Review of Systems All Other Systems: negative except mentioned in HPI (Andreina Lee) Physical Exam Vital Signs Date Time Temp Pulse Resp B/P (MAP) Pulse Ox O2 Delivery O2 Flow Rate FiO2 10/03/18 12:21 98.2 89 20 118/78 (91) 98 Room Air Sp02 EP Interpretation: reviewed, normal General Appearance: alert, GCS 15, non-toxic, mild distress Head: normocephalic, atraumatic Eyes: bilateral eye normal inspection, bilateral eye PERRL, bilateral eye EOMI , bilateral eye photophobia ENT: hearing grossly normal, normal voice, TMs + canals normal - no hemotympanum Neck: no carotid bruits, tender lateral - bilateral, R> L, tender midline, other - pain with ROM Respiratory: lungs clear, normal breath sounds, speaking full sentences Cardiovascular #1: regular rate, rhythm Gastrointestinal: normal bowel sounds, non tender, non-distended, no guarding Musculoskeletal: back normal, gait/station normal, normal range of motion, tender - midline c-spine ttp, and bilateral paracervical musculature ttp. Neurologic: alert, oriented x3, responsive, motor strength/tone normal, sensory intact, cerebellar normal, normal gait, speech normal, no pronator, grossly normal, other - No facial droop, no delay in response time, no nystagmus, normal Romberg, and normal [id number]. equal braille typist strength, grossly normal Psychiatric: judgement/insight normal, anxious Skin: other - no bruises, hematomas, open wounds, or abrasions. (Andreina Lee) Medical Decision Making PA Attestation Dr. Melton Is my supervising Physician whom patient management has been discussed with. (Andreina Lee) PA Attestation The history of Missy Valentin has been reviewed and management options for her have been examined and discussed. I have personally examined and interviewed the patient. Patient status post fall 5 days pt, CT C spine and Brain negative for acute pathology, she has some tightness of the neck muscles, which can be inducing her headache. Patient most likely post concussive (Mehran Melton M.D.) Diagnostic Impression: Primary Impression: Post concussion syndrome Additional Impressions: Neck muscle spasm Urinary tract infection Qualified Codes: N30.01 - Acute cystitis with hematuria ER Course 22 YO Female presents to the ED c/o progressive worsening of her symptoms. 10/ 10 in severity MENDOZA with photophobia, new onset of vomiting. diplopia and midline neck pain. s/p mechanical slip and fall onto tile 5 days ago with LOC. She was dx'd with a concussion. Denies additional trauma since initial visit. pt. has been taking Motrin, Zofran and Robaxin somewhat regular. She states the Robaxin makes her sleepy so she does not take it during the day when she is watching her daughter. Ddx considered but are not limited to Fracture, dislocation, contusion, concussion Sprain/Strain/Spasm, subdural hematoma, vertebral artery injury or insufficiency, concussive syndrome, medication non-compliance just to name a few. Vital signs: are WNL, pt. is afebrile reviewed chart for pt. initial ED visit 5 days ago. H&PE are most consistent with contusion, no evidence of focal neurological deficit, ORDERS: -CT Head and C-Spine No Contrast: Unremarkable, incidental finding of left sided LAD. - UA: Moderate bacteria with elevated inflammatory markers. -Urine HCG: Negative ED INTERVENTIONS: -Fioricet PO -Lidoderm Patch TP --re-eval: pt. reports MENDOZA has completely subsided with interventions, she continues to have neck discomfort. -I do not identify an emergent condition at this time. With current presentation , pt. is stable for close outpatient follow up and conservative treatment. D/ w pt. to return promptly to ED with worsening or new symptoms.- Pt. verbalizes' understanding and agreement with proposed treatment plan. reiterated importance of taking medications as directed. DISCHARGE: At this time pt. is stable for d/c to home. Will provide printed patient care instructions, and any necessary prescriptions. Care plan and follow up instructions have been discussed with the patient prior to discharge. Labs Test 10/03/18 12:54 Urine Color Pale yellow Urine Appearance Slightly cloudy Urine pH 6.5 (4.5-8.0) Urine Specific [place] 1.010 (1.005-1.035) Urine Protein Negative (NEGATIVE) Urine Glucose (UA) Negative (NEGATIVE) Urine Ketones Negative (NEGATIVE) Urine Blood 2+ (NEGATIVE) Urine Nitrite Negative (NEGATIVE) Urine Bilirubin Negative (NEGATIVE) Urine Urobilinogen Normal MG/DL (0.0-1.0) Urine Leukocyte Esterase 3+ (NEGATIVE) Urine RBC 2-4 /HPF (0 - 2) Urine WBC 30-40 /HPF (0 - 2) Urine Squamous Epithelial Cells Many /LPF (NONE/OCC) Urine Bacteria Moderate /HPF (NONE) Urine HCG, Qualitative Negative (NEGATIVE) (Andreina Lee) CT/MRI/US Diagnostic Results CT/MRI/US Diagnostic Results #1: Imaging Test Ordered: CT Head Non COn Impression "No evidence of acute fracture, hemorrhage, or intracranial process" per official radiology report- Please see report for specific details. CT/MRI/US Diagnostic Results #2: Imaging Test Ordered: CT C-Spine Non Con Impression " No evidence of acute fractures or dislocations incidental finding of bilateral cervical lymph nodes left greater than the right. " Per official radiology report- Please see report for specific details. (Andreina Lee) Last Vital Signs Date Time Temp Pulse Resp B/P (MAP) Pulse Ox O2 Delivery O2 Flow Rate FiO2 10/03/18 12:50 98.2 89 20 118/78 98 Room Air Status: improved (Andreina Lee) Disposition: HOME, SELF-CARE Condition: Stable Scripts Nitrofurantoin Monohyd/M-Cryst* (MACROBID 100 MG*) 100 Mg Capsule 100 MG ORAL EVERY 12 HOURS for 5 Days, #10 CAP Prov: Andreina Lee 10/03/18 Aspirin/Caffeine/Butalbital (Fiorinal 50-325-40 mg Capsule) 1 Each Capsule 1 EA PO Q6HR, #6 CAP Prov: Andreina Lee 10/03/18 Lidocaine (Lidoderm) 1 Each Adh..patch 1 PATCH TOPIC DAILY, #30 PATCH 0 Refills Patch(es) may remain in place for up to 12 hours in any 24-hour period. 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 May return Sooner if Symptoms have resolved. Return to Full Activity: Oct 04, 2018 Patient Instructions: Concussion, Adult, Muscle Cramps and Spasms, [id number] Additional Instructions: Take medications as directed. Follow up with a Primary Care Provider in 3-5 days For a referral to have NEUROLOGIST Evaluation, even if your symptoms have resolved. --Please review list of primary care clinics, if you do not already have a primary care provider Return sooner to ED if new symptoms occur, or current symptoms become worse. - Please note that this Emergency Department Report was dictated using [employer] development officer technology software, occasionally this can lead to erroneous entry secondary to interpretation by the dictation equipment. Andreina Lee Oct 03, 2018 13:57 Mehran Melton M.D. Oct 04, 2018 07:16
[2018-10-03] MEDS ORDERED: FIORINAL 50-321 EACH PO (14:44)
[2018-10-03] MEDS ORDERED: LIDODERM700 M1 TOPIC (14:44)
--- NOTE | 2018-10-03 15:12 | NUR ---
ED Nurse Note: pt was medicated as orderd. pt able to tolerate. will continue to monitor.
[2018-10-03 15:13] VITALS: BP 115/75
--- NOTE | 2018-10-03 15:13 | NUR ---
ER DISCHARGE NOTE: Patient is cleared to be discharged per ERMD, pt is aox4, on room air, with stable vital signs. pt was given dc and prescription instructions, pt was able to verbalize understanding, pt id band removed without complications. pt is able to ambulate with steady gait. pt took all belongings.
[2018-10-03] MEDS ORDERED: NITROFURANTOIN100 M2 ORAL (20:34)
== END 2018-10-03 15:13 | disposition home or self-care (01) ==
LOC: EMR 13:20
DX: F07.81 Postconcussional syndrome (principal); M62.838 Other muscle spasm; N39.0 Urinary tract infection, site not specified; M54.2 Cervicalgia; Z88.0 Allergy status to penicillin
CPT/HCPCS: 70450; 72125; 81003; 81025; 87086; 99284

== ENCOUNTER 2018-10-19 10:35 | Emergency (ER) | payer MEDICAID ==
[~2018-10-19] VITALS: Ht 152.4 cm; Wt 59.0 kg
[~2018-10-19 10:35] MED LIST changes: +FIORINAL 50-321 EACH PO; +LIDODERM700 M1 TOPIC
[2018-10-19] MEDS ORDERED: HYDROcodone/Acetamin 5/325 tab ORAL ONE (11:00)
[2018-10-19] MEDS ORDERED: Cyclobenzaprine 10mg Tab ORAL ONE (11:00)
[2018-10-19] MEDS ORDERED: IBUPROFEN600 MG ORAL (11:03)
[2018-10-19] MEDS ORDERED: CYCLOBENZAPRINE10 MG ORAL (11:03)
--- NOTE | 2018-10-19 11:03 | Emergency Room Report ---
History of Present Illness General Chief Complaint: Back Pain-No Injury Source: Patient Present Illness HPI 23-year-old female presents with headache, after a fall 3 weeks ago, and left upper back pain, no fevers no chills, no chest pain, no shortness of breath, she states that she was diagnosed with a concussion, she went to her doctor, they told her to come to the ED, she denies any dysuria, no vaginal discharge, no abdominal pain, she states she has a bit of an ache in her left upper back, worsened with movement alleviated with rest, patient has had multiple CTs of her brain that were negative. Patient presents for evaluation Allergies: Coded Allergies: KETOROLAC (Verified Allergy, Mild, 12/04/17) pt c/o had rashehs after using. IODINE (Verified Allergy, Unknown, 07/17/17) PENICILLINS (Verified Allergy, Unknown, 07/17/17) Patient History Past Medical History: see triage record Last Menstrual Period: 7-13 Now: No Reviewed Nursing Documentation: PMH: Agreed; PSxH: Agreed Nursing Documentation-PMH Past Medical History: No History, Except For Hx Cardiac Problems: No - ovarian cyst Hx Asthma: Yes Hx Neurological Problems: Yes - concussion Review of Systems All Other Systems: negative except mentioned in HPI Physical Exam Vital Signs Date Time Temp Pulse Resp B/P (MAP) Pulse Ox O2 Delivery O2 Flow Rate FiO2 10/19/18 10:42 98.2 100 20 106/69 (81) 97 Room Air Sp02 EP Interpretation: reviewed, normal General Appearance: well appearing, no apparent distress, alert Head: normocephalic, atraumatic Eyes: bilateral eye PERRL, bilateral eye EOMI ENT: uvula midline, moist mucus membranes Neck: supple, thyroid normal, supple/symm/no masses Respiratory: lungs clear, no respiratory distress, no retraction, no accessory muscle use Cardiovascular #1: normal peripheral pulses, regular rate, rhythm, no edema, no gallop, no murmur Gastrointestinal: non tender, soft, no guarding, no rebound Musculoskeletal: normal inspection, other - Left lower latissimus dorsi, tender to palpation Neurologic: alert, oriented x3 Psychiatric: mood/affect normal Skin: no rash, warm/dry Medical Decision Making Diagnostic Impression: Primary Impression: Back pain Additional Impression: Concussion ER Course Patient no red flags of back pain, patient has no dysuria, urinary incontinence , urinary retention, no perianal numbness, patient most likely with continued concussive symptoms, and his. Guided guidance was given, return precautions were discussed, left upper back pain, most likely MSK nature. Patient with contaminated urine, will call patient if any positive cultures Lab Results Impression Laboratory Tests Test 10/19/18 10:45 Urine Color Yellow Urine Appearance Clear Urine pH 6.5 (4.5-8.0) Urine Specific [place] 1.010 (1.005-1.035) Urine Protein Negative (NEGATIVE) Urine Glucose (UA) Negative (NEGATIVE) Urine Ketones Negative (NEGATIVE) Urine Blood 3+ (NEGATIVE) H Urine Nitrite Negative (NEGATIVE) Urine Bilirubin Negative (NEGATIVE) Urine Urobilinogen Normal MG/DL (0.0-1.0) Urine Leukocyte Esterase 3+ (NEGATIVE) H Urine RBC 2-4 /HPF (0 - 2) H Urine WBC 10-15 /HPF (0 - 2) H Urine Squamous Epithelial Cells Moderate /LPF (NONE/OCC) H Urine Bacteria Few /HPF (NONE) Urine HCG, Qualitative Negative (NEGATIVE) Last Vital Signs Date Time Temp Pulse Resp B/P (MAP) Pulse Ox O2 Delivery O2 Flow Rate FiO2 10/19/18 10:42 98.2 100 20 106/69 (81) 97 Room Air Disposition: HOME, SELF-CARE Scripts Ibuprofen* (MOTRIN*) 600 Mg Tablet 600 MG ORAL THREE TIMES A DAY PRN for For Pain, #30 TAB 0 Refills Prov: Mehran Melton MD 10/19/18 Cyclobenzaprine Hcl* (FLEXERIL*) 10 Mg Tablet 10 MG ORAL THREE TIMES A DAY, #30 TAB Prov: Mehran Melton MD 10/19/18 Referrals: [facility] Patient Instructions: Back Pain, Adult, Concussion, Adult, [id number] Additional Instructions: The patient was provided with discharge instructions, notified to follow-up with a primary care doctor and or specialist in the next 24-48 hours, and to return to the ED if they have worsening of their symptoms. Please note that this report is being documented using [employer] technology. This can lead to erroneous entry secondary to incorrect interpretation by the dictating instrument. Mehran Melton MD Oct 19, 2018 11:03
[2018-10-19 11:09] LABS: APPEARANCE,URINE CLEAR; BILIRUBIN, URINE NEGATIVE (NEGATIVE); GLUCOSE, URINE (UA) NEGATIVE (NEGATIVE); KETONES,URINE NEGATIVE (NEGATIVE); LEUKOCYTE ESTERASE ,URINE 3+ (NEGATIVE); NITRITE,URINE NEGATIVE (NEGATIVE); PH,URINE 6.5 (4.5-8.0); PROTEIN,URINE NEGATIVE (NEGATIVE); UROBILINOGEN,URINE NORMAL MG/DL (0.0-1.0)
[2018-10-19 11:11] LABS: COLOR,URINE YELLOW
[2018-10-19 11:56] VITALS: BP 106/69
[2018-10-19 11:57] VITALS: BP 106/69
--- NOTE | 2018-10-19 11:58 | NUR ---
ED Nurse Note: ermd eval done pt medicated urine hcg neg pt's pain improved from 10 to a 7.
== END 2018-10-19 12:01 | disposition home or self-care (01) ==
LOC: EMR 11:30
DX: M54.9 Dorsalgia, unspecified (principal); S06.0X0D Concussion without loss of consciousness, subsequent encounter; W19.XXXD Unspecified fall, subsequent encounter; J45.909 Unspecified asthma, uncomplicated; Z88.0 Allergy status to penicillin; Z88.8 Allergy status to other drugs, medicaments and biological substances
CPT/HCPCS: 81003; 81025; 87086; 99283

== ENCOUNTER 2018-12-01 20:06 | Emergency (ER) | payer MEDICAID ==
[~2018-12-01] VITALS: Ht 160 cm; Wt 59.0 kg
[~2018-12-01 20:06] MED LIST changes: +CYCLOBENZAPRINE10 MG ORAL
--- NOTE | 2018-12-01 20:30 | NUR ---
ED Nurse Note: Recieved pt from [facility], here with c/o severe, left lower abdominal pain x 1 day, pt has hx of ovarian cyst and states this feels this way, pt reports leval at 10/10 and sharp, tp is guarding site and crying, appears very un-comfortable, pt assisted to gowning and urine sample collected, will resume care as ordered, md at bedside.
--- NOTE | 2018-12-01 20:43 | Emergency Room Report ---
History of Present Illness General Chief Complaint: Abdominal Pain Source: Patient Present Illness HPI Disclaimer: Please note that this report is being documented using [employer] technology. This can lead to erroneous entry secondary to incorrect interpretation by the dictating instrument. HPI: 23-year-old female with a history of ovarian cyst presents for evaluation of left lower quadrant abdominal pain. She has been noticing a discomfort in the left lower quadrant for the past several days which she attributed to lifting something heavy earlier in the week. She denied any nausea or vomiting. This afternoon while she was sitting at rest she suddenly had an intensification of his left lower quadrant sharp stabbing pain. She noted severe nausea and lightheadedness. Denied vomiting or recent diarrhea. Denies hematuria, dysuria, vaginal bleeding or vaginal discharge. Her periods are irregular though her last menses was approximately 1 month ago. Is sexually active and does not use any contraception. She noted a fever last night with a oral temperature reading of 101 degrees. She had responded well to Tylenol and has not recurred since. Last took Tylenol proximal de 3 hours prior to arrival. Pain is currently a 01/03. PMH: Ovarian cyst, asthma PSH: Denies Allergies: Throat closure to Toradol Social Hx: Denies drug or alcohol abuse Allergies: Coded Allergies: KETOROLAC (Verified Allergy, Mild, 12/04/17) pt c/o had rashehs after using. IODINE (Verified Allergy, Unknown, 07/17/17) PENICILLINS (Verified Allergy, Unknown, 07/17/17) Patient History Last Menstrual Period: 10/2018 Now: No - irregular Nursing Documentation-PMH Past Medical History: No History, Except For Hx Cardiac Problems: No - ovarian cyst Hx Asthma: Yes Hx Neurological Problems: Yes - concussion Review of Systems All Other Systems: negative except mentioned in HPI Physical Exam Vital Signs Date Time Temp Pulse Resp B/P (MAP) Pulse Ox O2 Delivery O2 Flow Rate FiO2 12/01/18 20:17 98.4 104 20 122/79 (93) 98 Room Air General: Awake and alert, appears moderately uncomfortable HEENT: NC/AT. EOMI. Cardiovascular: RRR. S1 and S2 normal. No murmur appreciated Resp: Normal work of breathing. No cough, wheezing or crackles appreciated Abdomen: Abdomen is soft, nondistended. Very tender to palpation left lower quadrant. Otherwise abdomen is soft and nontender. No masses. No rebound. Skin: Intact. No abrasions, laceration or rash over the exposed skin MSK: Normal tone and bulk. Moving all extremities. No obvious deformity. Neuro: Awake and alert. Mentating appropriately. Medical Decision Making Diagnostic Impression: Primary Impression: Ovarian cyst Additional Impression: Abdominal pain in female ER Course 23-year-old female with a history of ovarian cyst presents for evaluation of left lower quadrant abdominal pain worsening over the past 3 days. Differential includes but is not limited to ovarian cyst, ovarian torsion, ectopic , intra-abdominal abscess, tubo-ovarian abscess, PID, diverticulitis, cystitis, pyelonephritis, nephrolithiasis. Of these, ovarian cyst or possible torsion/ectopic are most concerning. Will obtain a pelvic ultrasound, abdominal labs, start IV fluids, antiemetics and pain medication. If ultrasound is unremarkable can progress to CT scan. Laboratory Tests Test 12/01/18 20:40 White Blood Count 11.3 K/UL (4.8-10.8) H Red Blood Count 4.38 M/UL (4.20-5.40) Hemoglobin 12.9 G/DL (12.0-16.0) Hematocrit 36.5 % (37.0-47.0) L Mean Corpuscular Volume 83 FL (80-99) Mean Corpuscular Hemoglobin 29.5 PG (27.0-31.0) Mean Corpuscular Hemoglobin Concent 35.4 G/DL (32.0-36.0) Red Cell Distribution Width 12.1 % (11.6-14.8) Platelet Count 312 K/UL (150-450) Mean Platelet Volume 6.8 FL (6.5-10.1) Neutrophils (%) (Auto) 63.1 % (45.0-75.0) Lymphocytes (%) (Auto) 28.5 % (20.0-45.0) Monocytes (%) (Auto) 6.1 % (1.0-10.0) Eosinophils (%) (Auto) 1.4 % (0.0-3.0) Basophils (%) (Auto) 1.0 % (0.0-2.0) Urine Color Pale yellow Urine Appearance Clear Urine pH 7 (4.5-8.0) Urine Specific [place] 1.005 (1.005-1.035) Urine Protein Negative (NEGATIVE) Urine Glucose (UA) Negative (NEGATIVE) Urine Ketones Negative (NEGATIVE) Urine Blood 3+ (NEGATIVE) H Urine Nitrite Negative (NEGATIVE) Urine Bilirubin Negative (NEGATIVE) Urine Urobilinogen Normal MG/DL (0.0-1.0) Urine Leukocyte Esterase Negative (NEGATIVE) Urine RBC 0-2 /HPF (0 - 2) Urine WBC 0 /HPF (0 - 2) Urine Squamous Epithelial Cells Few /LPF (NONE/OCC) Urine Bacteria None /HPF (NONE) Urine HCG, Qualitative Negative (NEGATIVE) Sodium Level 141 MMOL/L (136-145) Potassium Level 3.7 MMOL/L (3.5-5.1) Chloride Level 106 MMOL/L (98-107) Carbon Dioxide Level 23 MMOL/L (21-32) Anion Gap 12 mmol/L (5-15) Blood Urea Nitrogen 11 mg/dL (7-18) Creatinine 0.7 MG/DL (0.55-1.30) Estimate Glomerular Filtration Rate > 60 mL/min (>60) Glucose Level 106 MG/DL (74-106) Calcium Level 9.3 MG/DL (8.5-10.1) Total Bilirubin 0.2 MG/DL (0.2-1.0) Aspartate Amino Transferase (AST) 16 U/L (15-37) Alanine Aminotransferase (ALT) 16 U/L (12-78) Alkaline Phosphatase 90 U/L (46-116) Total Protein 8.2 G/DL (6.4-8.2) Albumin 4.1 G/DL (3.4-5.0) Globulin 4.1 g/dL Albumin/Globulin Ratio 1.0 (1.0-2.7) Lipase 183 U/L (73-393) Reevaluation Time: 22:16 Last Vital Signs Date Time Temp Pulse Resp B/P (MAP) Pulse Ox O2 Delivery O2 Flow Rate FiO2 12/01/18 20:17 98.4 104 20 122/79 (93) 98 Room Air Reevaluation Impression Ultrasound shows bilateral ovarian cyst and free fluid in the pelvis jesting a ruptured ovarian cyst. The cyst on the right is hemorrhagic and the cyst on the left is fluid-filled. The patient's hemoglobin is stable and labs are otherwise unremarkable. Her pain is improved his receiving pain medication. She will be discharged on NSAIDs, breakthrough pain medication with [place] and Zofran for symptom medic relief. She will follow-up with her PMD and we discussed reasons to return to the emergency department for reevaluation. She understands and agrees with this treatment plan will be discharged home. Disposition: HOME, SELF-CARE Condition: Improved Scripts Ondansetron Odt* (ZOFRAN ODT*) 4 Mg Tab.rapdis 4 MG BC EVERY 6 HOURS PRN for Nausea & Vomiting, #10 TAB 0 Refills Prov: Blaine Gates MD 12/01/18 Hydrocodone Bit/Acetaminophen (HYDROCODON-ACETAMINOPHEN 5-300) 1 Each Tablet 1 EACH PO Q6HR for 2 Days, #5 TAB Prov: Blaine Gates MD 12/01/18 Ibuprofen* (MOTRIN*) 600 Mg Tablet 600 MG ORAL Q6HR PRN for For Pain, #30 TAB 0 Refills Prov: Blaine Gates MD 12/01/18 Blaine Gates MD Dec 01, 2018 20:43
[2018-12-01] MEDS ORDERED: Morphine Sulfate 4mg/ml Inj (IV USE ONLY) IVP ONE (20:45)
[2018-12-01 20:52] LABS: EOSINOPHILS % (AUTO) 1.4 % (0.0-3.0); HEMATOCRIT 36.5 % (37.0-47.0); HEMOGLOBIN 12.9 G/DL (12.0-16.0); LYMPHOCYTES % (AUTO) 28.5 % (20.0-45.0); MEAN CORPUSCULAR VOLUME 83 FL (80-99); MONOCYTES % (AUTO) 6.1 % (1.0-10.0); NEUTROPHILS % (AUTO) 63.1 % (45.0-75.0); PLATELET COUNT 312 K/UL (150-450); RED BLOOD COUNT 4.38 M/UL (4.20-5.40); RED CELL DISTRIBUTION WIDTH 12.1 % (11.6-14.8); WHITE BLOOD COUNT 11.3 K/UL (4.8-10.8)
[2018-12-01 20:54] LABS: APPEARANCE,URINE CLEAR; BILIRUBIN, URINE NEGATIVE (NEGATIVE); COLOR,URINE PALE YELLOW; GLUCOSE, URINE (UA) NEGATIVE (NEGATIVE); KETONES,URINE NEGATIVE (NEGATIVE); LEUKOCYTE ESTERASE ,URINE NEGATIVE (NEGATIVE); NITRITE,URINE NEGATIVE (NEGATIVE); PH,URINE 7 (4.5-8.0); PROTEIN,URINE NEGATIVE (NEGATIVE); UROBILINOGEN,URINE NORMAL MG/DL (0.0-1.0)
[2018-12-01 21:03] LABS: ANION GAP 12 mmol/L (5-15); BLOOD UREA NITROGEN 11 mg/dL (7-18); CALCIUM 9.3 MG/DL (8.5-10.1); CARBON DIOXIDE 23 MMOL/L (21-32); CHLORIDE 106 MMOL/L (98-107); CREATININE 0.7 MG/DL (0.55-1.30); POTASSIUM 3.7 MMOL/L (3.5-5.1); SODIUM 141 MMOL/L (136-145)
[2018-12-01 21:08] LABS: ALANINE AMINOTRANSFERASE 16 U/L (12-78); ALBUMIN 4.1 G/DL (3.4-5.0); ALKALINE PHOSPHATASE 90 U/L (46-116); ASPARTATE AMINO TRANSFERASE 16 U/L (15-37); BILIRUBIN,TOTAL 0.2 MG/DL (0.2-1.0)
[2018-12-01 22:00] VITALS: BP 129/84
[2018-12-01] MEDS ORDERED: Morphine Sulfate 2mg/ml Inj(IV/IM USE ONLY) IVP ONE (22:00)
[2018-12-01] MEDS ORDERED: IBUPROFEN600 MG ORAL (22:15)
[2018-12-01] MEDS ORDERED: ONDANSETRON ODT4 MG BC (22:15)
[2018-12-01] MEDS ORDERED: HYDROCODON-ACE1 EA18 PO (22:15)
--- NOTE | 2018-12-01 22:15 | NUR ---
ED Nurse Note: ER DISCHARGE NOTE: Patient is cleared to be discharged per ERMD, pt is aox4, on room air, with stable vital signs. pt was given dc and prescription instructions, pt was able to verbalize understanding, pt id band and iv site removed without complications. pt is able to ambulate with steady gait. pt took all belongings.
[2018-12-01 22:25] VITALS: BP 129/84
--- NOTE | 2018-12-02 01:03 | Diagnostic Imaging Report ---
EXAM: US Pelvic/Endovag CLINICAL HISTORY: ABD PAIN TECHNIQUE: Real-time ultrasound of the pelvic/endovag with image documentation. COMPARISON: 06/07/18. No final report. FINDINGS: Nabothian cyst. Endometrial thickness generous at about 12 mm. May be related to phase of menstrual cycle. Uterus otherwise unremarkable. Right ovary is a complex cystic lesion measuring 15 mm in maximum dimension. May represent hemorrhagic cyst. Left ovary has a simple appearing cyst measuring slightly under 2 cm in maximum dimension. Maybe paraovarian. Measurements of left ovary below do not include cyst. Pelvic free fluid. Blood flow seen to bilateral ovaries. Uterus measures 8.6 x 3.1 x 4.1 cm. Right ovary 2.4 x 2.4 x 1.5 cm. Left ovary 1.5 x 1.6 x 1.1 cm. IMPRESSION: Right ovary has a complex cystic lesion measuring 15 mm in maximum dimension. May represent hemorrhagic cyst. Left ovary has a simple appearing cyst measuring slightly under 2 cm in maximum dimension, possibly parovarian. Endometrial thickness generous at about 12 mm. May be related to phase of menstrual cycle. Nonspecific free fluid. Nabothian cyst.
[2018-12-03] MEDS ORDERED: NORCO 5-325 TA1 EACH ORAL (19:30)
== END 2018-12-01 22:25 | disposition home or self-care (01) ==
LOC: EMR 21:00
DX: N83.202 Unspecified ovarian cyst, left side (principal); N83.201 Unspecified ovarian cyst, right side; J45.909 Unspecified asthma, uncomplicated; Z88.0 Allergy status to penicillin; Z88.6 Allergy status to analgesic agent; Z91.041 Radiographic dye allergy status
CPT/HCPCS: 36415; 76830; 76856; 80053; 81003; 81025; 83690; 85025; 96361; 96374; 96376; 99284; J2270; J2405

== ENCOUNTER 2019-02-26 22:03 | Emergency (ER) | payer MEDICAID ==
[~2019-02-26] VITALS: Ht 160 cm; Wt 59.0 kg
[~2019-02-26 22:03] MED LIST changes: +HYDROCODON-ACE1 EA18 PO; +ONDANSETRON ODT4 MG BC
[2019-02-26 22:36] VITALS: BP 112/60
--- NOTE | 2019-02-26 22:51 | Emergency Room Report ---
History of Present Illness General Chief Complaint: Abdominal Pain Source: Patient, Medical Record Present Illness HPI Patient is a 23-year-old female presents after increased left-sided abdominal pain. She had prior history of ovarian cyst. She noticed increased bleeding. She reports of increased discomfort to her lower abdomen. She states she is currently taking control pills. She did prior history of multiple ovarian cyst. Denies any fever. She reports having increased generalized weakness. Allergies: Coded Allergies: KETOROLAC (Verified Allergy, Mild, 12/04/17) pt c/o had rashehs after using. IODINE (Verified Allergy, Unknown, 07/17/17) PENICILLINS (Verified Allergy, Unknown, 07/17/17) Patient History Past Medical History: see triage record Now: No Reviewed Nursing Documentation: PMH: Agreed; PSxH: Agreed Nursing Documentation-PMH Past Medical History: No History, Except For Hx Cardiac Problems: No - ovarian cyst Hx Asthma: Yes Hx Neurological Problems: Yes - concussion Review of Systems All Other Systems: negative except mentioned in HPI Physical Exam Vital Signs Date Time Temp Pulse Resp B/P (MAP) Pulse Ox O2 Delivery O2 Flow Rate FiO2 02/26/19 22:18 98.8 135 18 118/73 (88) 95 Room Air Sp02 EP Interpretation: reviewed, normal General Appearance: normal inspection, well appearing, no apparent distress, alert, GCS 15 Head: atraumatic ENT: normal ENT inspection, hearing grossly normal, normal voice Neck: normal inspection, full range of motion, supple, no bony tend Respiratory: normal inspection, lungs clear, normal breath sounds, no respiratory distress, no retraction, no wheezing Cardiovascular #1: no edema, tachycardia Gastrointestinal: normal inspection, normal bowel sounds, non tender, soft, no guarding, no hernia Genitourinary: no CVA tenderness Musculoskeletal: normal inspection, back normal, normal range of motion Neurologic: alert, motor strength/tone normal, news assistant III-XII nml as tested, oriented x3, responsive, speech normal, normal inspection Psychiatric: normal inspection, judgement/insight normal, mood/affect normal Medical Decision Making Diagnostic Impression: Primary Impression: Abdominal pain Additional Impression: Urinary tract infection ER Course Patient is a 23-year-old female presents after increased abdominal discomfort. Differential diagnosis include was not limited to ruptured ovarian cyst, urinary tract infection, ectopic among others. Because of complexity of patient's case laboratory tests and imaging studies were ordered. Pelvic ultrasound showed no evidence of significant free intraperitoneal fluid. There were some small cysts noted which patient is at the past. Patient was given IV tranexamic acid due to bleeding. She is also given IV antibiotics for urinary infection. Patient was advised to follow-up with [facility]. She is advised to return if worse. She was noted to be improved and no longer orthostatic at the time of discharge. Labs Test 02/26/19 22:30 White Blood Count 14.0 K/UL (4.8-10.8) Red Blood Count 4.63 M/UL (4.20-5.40) Hemoglobin 12.8 G/DL (12.0-16.0) Hematocrit 38.1 % (37.0-47.0) Mean Corpuscular Volume 82 FL (80-99) Mean Corpuscular Hemoglobin 27.7 PG (27.0-31.0) Mean Corpuscular Hemoglobin Concent 33.7 G/DL (32.0-36.0) Red Cell Distribution Width 11.0 % (11.6-14.8) Platelet Count 371 K/UL (150-450) Mean Platelet Volume 6.6 FL (6.5-10.1) Neutrophils (%) (Auto) 64.6 % (45.0-75.0) Lymphocytes (%) (Auto) 27.0 % (20.0-45.0) Monocytes (%) (Auto) 5.9 % (1.0-10.0) Eosinophils (%) (Auto) 1.8 % (0.0-3.0) Basophils (%) (Auto) 0.8 % (0.0-2.0) Prothrombin Time 10.0 SEC (9.30-11.50) Prothromb Time International Ratio 0.9 (0.9-1.1) Activated Partial Thromboplast Time 30 SEC (23-33) Urine Color Pale yellow Urine Appearance Slightly cloudy Urine pH 6 (4.5-8.0) Urine Specific [place] 1.015 (1.005-1.035) Urine Protein 2+ (NEGATIVE) Urine Glucose (UA) Negative (NEGATIVE) Urine Ketones 3+ (NEGATIVE) Urine Blood 5+ (NEGATIVE) Urine Nitrite Negative (NEGATIVE) Urine Bilirubin Negative (NEGATIVE) Urine Urobilinogen Normal MG/DL (0.0-1.0) Urine Leukocyte Esterase 2+ (NEGATIVE) Urine RBC 60-80 /HPF (0 - 2) Urine WBC 15-20 /HPF (0 - 2) Urine Squamous Epithelial Cells Moderate /LPF (NONE/OCC) Urine Bacteria Moderate /HPF (NONE) Sodium Level 138 MMOL/L (136-145) Potassium Level 3.0 MMOL/L (3.5-5.1) Chloride Level 103 MMOL/L (98-107) Carbon Dioxide Level 26 MMOL/L (21-32) Anion Gap 9 mmol/L (5-15) Blood Urea Nitrogen 8 mg/dL (7-18) Creatinine 0.8 MG/DL (0.55-1.30) Estimat Glomerular Filtration Rate > 60 mL/min (>60) Glucose Level 104 MG/DL (74-106) Calcium Level 7.9 MG/DL (8.5-10.1) Total Bilirubin 0.2 MG/DL (0.2-1.0) Aspartate Amino Transf (AST/SGOT) 12 U/L (15-37) Alanine Aminotransferase (ALT/SGPT) 16 U/L (12-78) Alkaline Phosphatase 59 U/L (46-116) Total Protein 7.8 G/DL (6.4-8.2) Albumin 3.6 G/DL (3.4-5.0) Globulin 4.2 g/dL Albumin/Globulin Ratio 0.9 (1.0-2.7) Lipase 152 U/L (73-393) Last Vital Signs Date Time Temp Pulse Resp B/P (MAP) Pulse Ox O2 Delivery O2 Flow Rate FiO2 02/26/19 22:36 98.8 116 25 112/60 100 Room Air Status: improved Disposition: HOME, SELF-CARE Condition: Improved Scripts Tranexamic Acid (TRANEXAMIC ACID) 650 Mg Tablet 650 MG PO TWICE A DAY, #10 TAB Prov: Ramiro Steve MD 02/27/19 Trimethoprim/Sulfamethoxazole 160/800* (BACTRIM DS TABLET*) 1 Each Tablet 1 TAB ORAL Q12H, #14 TAB 0 Refills Prov: Ramiro Steve MD 02/27/19 Ramiro Steve MD Feb 26, 2019 22:51
[2019-02-26] MEDS ORDERED: Tranexamic Acid 500 MG in NS 55 ML IVPB ONE (23:00)
[2019-02-26] MEDS ORDERED: Morphine Sulfate 4mg/ml Inj (IV USE ONLY) IVP ONE (23:00)
[2019-02-26 23:01] LABS: APPEARANCE,URINE SLIGHTLY CLOUDY; BASOPHILS % (AUTO) 0.8 % (0.0-2.0); BILIRUBIN, URINE NEGATIVE (NEGATIVE); COLOR,URINE PALE YELLOW; EOSINOPHILS % (AUTO) 1.8 % (0.0-3.0); GLUCOSE, URINE (UA) NEGATIVE (NEGATIVE); HEMATOCRIT 38.1 % (37.0-47.0); HEMOGLOBIN 12.8 G/DL (12.0-16.0); KETONES,URINE 3+ (NEGATIVE); LEUKOCYTE ESTERASE ,URINE 2+ (NEGATIVE); MEAN CORPUSCULAR VOLUME 82 FL (80-99); MONOCYTES % (AUTO) 5.9 % (1.0-10.0); NEUTROPHILS % (AUTO) 64.6 % (45.0-75.0); NITRITE,URINE NEGATIVE (NEGATIVE); PH,URINE 6 (4.5-8.0); PLATELET COUNT 371 K/UL (150-450); PROTEIN,URINE 2+ (NEGATIVE); RED BLOOD COUNT 4.63 M/UL (4.20-5.40); UROBILINOGEN,URINE NORMAL MG/DL (0.0-1.0)
[2019-02-26 23:04] LABS: ANION GAP 9 mmol/L (5-15); BLOOD UREA NITROGEN 8 mg/dL (7-18); CALCIUM 7.9 MG/DL (8.5-10.1); CARBON DIOXIDE 26 MMOL/L (21-32); CHLORIDE 103 MMOL/L (98-107); CREATININE 0.8 MG/DL (0.55-1.30); SODIUM 138 MMOL/L (136-145)
[2019-02-26 23:08] LABS: ALANINE AMINOTRANSFERASE 16 U/L (12-78); ALBUMIN 3.6 G/DL (3.4-5.0); ALBUMIN/GLOBULIN RATIO 0.9 (1.0-2.7); ALKALINE PHOSPHATASE 59 U/L (46-116); ASPARTATE AMINO TRANSFERASE 12 U/L (15-37); BILIRUBIN,TOTAL 0.2 MG/DL (0.2-1.0); INR 0.9 (0.9-1.1)
[2019-02-27] MEDS ORDERED: Bactrim-DS 1 tab ORAL ONE
--- NOTE | 2019-02-27 00:38 | Diagnostic Imaging Report ---
Indication:Lower abdominal and pelvic pain Technique: Grayscale and duplex Doppler imaging of the pelvis performed utilizing a transabdominal and endovaginal scan. Comparison: 12/01/2018 ultrasound Findings: The size, contour, and configuration of the uterus is within normal limits. The endometrium is uniformly echogenic and normal in thickness. Endometrium measures 4 mm. Uterus 8.2 x 3 x 4.2 cm. The ovaries appear normal bilaterally with good dopplerable blood flow. There is a cyst in the left ovary again demonstrated measuring approximately 2 cm. The right ovary is 1.8 x 2.2 x 1.4 cm. Left ovary 2.8 x 2.3 x 1.6 cm. There is no significant free fluid identified. IMPRESSION: Negative pelvic ultrasound. No acute findings. No significant change. Left ovarian cyst again noted.
[2019-02-27] MEDS ORDERED: NORCO 5-325 TA1 EACH ORAL (00:45)
[2019-02-27] MEDS ORDERED: BACTRIM DS TAB1 EAC1 ORAL ×3 (00:45→01:55)
[2019-02-27] MEDS ORDERED: TRANEXAMIC ACI650 MG PO (01:55)
[2019-02-27 02:07] VITALS: BP 112/60
== END 2019-02-27 02:02 | disposition home or self-care (01) ==
LOC: EMR 22:45
DX: N39.0 Urinary tract infection, site not specified (principal); R10.9 Unspecified abdominal pain; Z88.0 Allergy status to penicillin; Z91.041 Radiographic dye allergy status; R00.0 Tachycardia, unspecified; Z79.3 Long term (current) use of hormonal contraceptives
CPT/HCPCS: 36415; 76830; 76856; 80053; 81003; 83690; 85025; 85610; 85730; 86850; 86900; 86901; 87086; 96361; 96365; 96375; J2270; J2405; J7030; Z7502; 99284; J8499

== ENCOUNTER 2019-09-04 08:01 | Emergency (ER) | payer MEDICAID ==
[~2019-09-04] VITALS: Ht 160 cm; Wt 59.0 kg
[~2019-09-04 08:01] MED LIST changes: +TRANEXAMIC ACI650 MG PO
[2019-09-04 08:10] VITALS: BP 123/84
--- NOTE | 2019-09-04 08:10 | NUR ---
ED Nurse Note: Patient walked into ED from home c/o lower abdominal pain x 3 days. Patient feeling nauseated, no diarrhea, fever. Patient denies recent traveling. Patient AxO x 4. Blood and urine sent to lab.
[2019-09-04 08:33] LABS: APPEARANCE,URINE CLEAR; BILIRUBIN, URINE NEGATIVE (NEGATIVE); COLOR,URINE YELLOW; GLUCOSE, URINE (UA) NEGATIVE (NEGATIVE); KETONES,URINE 1+ (NEGATIVE); LEUKOCYTE ESTERASE ,URINE 2+ (NEGATIVE); NITRITE,URINE NEGATIVE (NEGATIVE); PH,URINE 6.5 (4.5-8.0); PROTEIN,URINE NEGATIVE (NEGATIVE); UROBILINOGEN,URINE NORMAL MG/DL (0.0-1.0)
--- NOTE | 2019-09-04 08:35 | Emergency Room Report ---
History of Present Illness General Chief Complaint: Abdominal Pain Source: Patient Present Illness HPI 23-year-old female history of ovarian cyst presents for lower abdominal pressure. She states her symptoms have been present for the past 3 days. She denies any nausea vomiting fevers cough or diarrhea. She denies any urinary complaints. Last menstrual cycle was approximately 2 weeks ago. Pain currently 7 out of 10. Nothing makes it better or worse. Allergies: Coded Allergies: KETOROLAC (Verified Allergy, Mild, 12/04/17) pt c/o had rashehs after using. IODINE (Verified Allergy, Unknown, 07/17/17) PENICILLINS (Verified Allergy, Unknown, 07/17/17) COVID-19 Screening Contact w/high risk pt: No Recent Travel to affected area: No Experienced COVID-19 symptoms?: No COVID-19 Testing performed SUPERVISOR ASSEMBLING: No Patient History Last Menstrual Period: 08/16/19 Now: No Reviewed Nursing Documentation: PMH: Agreed; PSxH: Agreed Nursing Documentation-PMH Past Medical History: No History, Except For Hx Cardiac Problems: No - left ovarian cyst removal 3 months ago Hx Hypertension: No Hx Pacemaker: No Hx Asthma: Yes Hx COPD: No Hx Diabetes: No Hx Cancer: No Hx Gastrointestinal Problems: No Hx Dialysis: No History Of Psychiatric Problem: No Hx Neurological Problems: No - concussion Hx Cerebrovascular Accident: No Hx Seizures: No Review of Systems All Other Systems: negative except mentioned in HPI Physical Exam Vital Signs Date Time Temp Pulse Resp B/P (MAP) Pulse Ox O2 Delivery O2 Flow Rate FiO2 09/04/19 08:07 98.4 96 15 123/84 (97) 99 Room Air Sp02 EP Interpretation: reviewed, normal General Appearance: well appearing, no apparent distress Head: normocephalic, atraumatic Eyes: bilateral eye PERRL, bilateral eye EOMI ENT: hearing grossly normal, moist mucus membranes Neck: full range of motion, supple Respiratory: lungs clear, normal breath sounds, no rhonchi, no respiratory distress, no retraction, no wheezing Cardiovascular #1: normal peripheral pulses, regular rate, rhythm, no murmur Gastrointestinal: non tender, soft, non-distended, no guarding Genitourinary: other - Mild suprapubic tenderness Neurologic: alert, oriented x3, no focal defects Skin: normal color, warm/dry Medical Decision Making ER Course MDM: Patient presented for complaints of suprapubic pain. Differential included but not limited to UTI, ovarian cyst, mittelschmerz Clinical course-basic laboratories were sent. Urinalysis ordered urinalysis showed evidence of UTI. Laboratory studies otherwise unremarkable. On my reassessment patient remained in no acute distress. Patient will be discharged home with follow-up with PMD. Oral antibiotics and return precautions. Labs - Laboratory Tests Test 09/04/19 08:15 09/04/19 08:30 Urine Color Yellow Urine Appearance Clear Urine pH 6.5 (4.5-8.0) Urine Specific [place] 1.015 (1.005-1.035) Urine Protein Negative (NEGATIVE) Urine Glucose (UA) Negative (NEGATIVE) Urine Ketones 1+ (NEGATIVE) H Urine Blood 3+ (NEGATIVE) H Urine Nitrite Negative (NEGATIVE) Urine Bilirubin Negative (NEGATIVE) Urine Urobilinogen Normal MG/DL (0.0-1.0) Urine Leukocyte Esterase 2+ (NEGATIVE) H Urine RBC 5-10 /HPF (0 - 2) H Urine WBC 2-4 /HPF (0 - 2) Urine Squamous Epithelial Cells Many /LPF (NONE/OCC) H Urine Bacteria Few /HPF (NONE) Urine HCG, Qualitative Negative (NEGATIVE) White Blood Count 8.1 K/UL (4.8-10.8) Red Blood Count 4.66 M/UL (4.20-5.40) Hemoglobin 13.3 G/DL (12.0-16.0) Hematocrit 38.8 % (37.0-47.0) Mean Corpuscular Volume 83 FL (80-99) Mean Corpuscular Hemoglobin 28.6 PG (27.0-31.0) Mean Corpuscular Hemoglobin Concent 34.4 G/DL (32.0-36.0) Red Cell Distribution Width 13.9 % (11.6-14.8) Platelet Count 340 K/UL (150-450) Mean Platelet Volume 6.5 FL (6.5-10.1) Neutrophils (%) (Auto) 57.6 % (45.0-75.0) Lymphocytes (%) (Auto) 33.6 % (20.0-45.0) Monocytes (%) (Auto) 6.1 % (1.0-10.0) Eosinophils (%) (Auto) 1.7 % (0.0-3.0) Basophils (%) (Auto) 0.9 % (0.0-2.0) Sodium Level 138 MMOL/L (136-145) Potassium Level 3.3 MMOL/L (3.5-5.1) L Chloride Level 103 MMOL/L (98-107) Carbon Dioxide Level 25 MMOL/L (21-32) Anion Gap 11 mmol/L (5-15) Blood Urea Nitrogen 12 mg/dL (7-18) Creatinine 0.7 MG/DL (0.55-1.30) Estimated Glomerular Filtration Rate > 60 mL/min (>60) Glucose Level 100 MG/DL (74-106) Calcium Level 8.8 MG/DL (8.5-10.1) Total Bilirubin 0.3 MG/DL (0.2-1.0) Aspartate Amino Transferase (AST) 17 U/L (15-37) Alanine Aminotransferase (ALT) 28 U/L (12-78) Alkaline Phosphatase 79 U/L (46-116) Total Protein 8.3 G/DL (6.4-8.2) H Albumin 4.0 G/DL (3.4-5.0) Globulin 4.3 g/dL Albumin/Globulin Ratio 0.9 (1.0-2.7) L Lipase 193 U/L (73-393) Last Vital Signs Date Time Temp Pulse Resp B/P (MAP) Pulse Ox O2 Delivery O2 Flow Rate FiO2 09/04/19 08:07 98.4 96 15 123/84 (97) 99 Room Air Disposition: HOME, SELF-CARE Condition: Stable Scripts Phenazopyridine Hcl* (PYRIDIUM*) 100 Mg Tablet 100 MG ORAL THREE TIMES A DAY PRN for For Pain, #20 TAB Prov: Jesus Vences M.D. 09/04/19 Nitrofurantoin Monohyd/M-Cryst* (MACROBID 100 MG*) 100 Mg Capsule 100 MG ORAL EVERY 12 HOURS, #14 CAP Prov: Jesus Vences M.D. 09/04/19 Jesus Vences M.D. Sep 04, 2019 08:35
[2019-09-04 08:41] LABS: BASOPHILS % (AUTO) 0.9 % (0.0-2.0); EOSINOPHILS % (AUTO) 1.7 % (0.0-3.0); HEMATOCRIT 38.8 % (37.0-47.0); HEMOGLOBIN 13.3 G/DL (12.0-16.0); LYMPHOCYTES % (AUTO) 33.6 % (20.0-45.0); MEAN CORPUSCULAR VOLUME 83 FL (80-99); MONOCYTES % (AUTO) 6.1 % (1.0-10.0); NEUTROPHILS % (AUTO) 57.6 % (45.0-75.0); PLATELET COUNT 340 K/UL (150-450); RED BLOOD COUNT 4.66 M/UL (4.20-5.40); RED CELL DISTRIBUTION WIDTH 13.9 % (11.6-14.8); WHITE BLOOD COUNT 8.1 K/UL (4.8-10.8)
[2019-09-04 08:49] LABS: ANION GAP 11 mmol/L (5-15); BLOOD UREA NITROGEN 12 mg/dL (7-18); CALCIUM 8.8 MG/DL (8.5-10.1); CARBON DIOXIDE 25 MMOL/L (21-32); CHLORIDE 103 MMOL/L (98-107); CREATININE 0.7 MG/DL (0.55-1.30); POTASSIUM 3.3 MMOL/L (3.5-5.1); SODIUM 138 MMOL/L (136-145)
[2019-09-04 08:54] LABS: ALANINE AMINOTRANSFERASE 28 U/L (12-78); ALBUMIN/GLOBULIN RATIO 0.9 (1.0-2.7); ALKALINE PHOSPHATASE 79 U/L (46-116); ASPARTATE AMINO TRANSFERASE 17 U/L (15-37); BILIRUBIN,TOTAL 0.3 MG/DL (0.2-1.0)
[2019-09-04] MEDS ORDERED: PHENAZOPYRIDIN100 MG ORAL (09:05)
[2019-09-04] MEDS ORDERED: NITROFURANTOIN100 M2 ORAL (09:05)
[2019-09-04 09:10] VITALS: BP 123/84
== END 2019-09-04 09:10 | disposition home or self-care (01) ==
LOC: EMR 08:14
DX: R10.30 Lower abdominal pain, unspecified (principal); Z88.0 Allergy status to penicillin; Z88.8 Allergy status to other drugs, medicaments and biological substances; Z91.041 Radiographic dye allergy status; N39.0 Urinary tract infection, site not specified
CPT/HCPCS: 36415; 80053; 81003; 81025; 83690; 85025; Z7502; 99283

== ENCOUNTER 2019-10-01 07:09 | Emergency (ER) | payer MEDICAID ==
[~2019-10-01] VITALS: Ht 160 cm; Wt 59.0 kg
[~2019-10-01 07:09] MED LIST changes: +PHENAZOPYRIDIN100 MG ORAL
--- NOTE | 2019-10-01 07:28 | NUR ---
ED Nurse Note: Report given to GERARDO Mahoney.
--- NOTE | 2019-10-01 07:33 | Emergency Room Report ---
History of Present Illness General Chief Complaint: Abdominal Pain Source: Patient Present Illness HPI Patient is a 23-year-old female past medical history of ovarian cysts who presents to the ER complaining of lower abdominal pain, nausea, nonbilious nonbloody vomitus and nonbloody diarrhea for 1 day. She denies any fever or chills. She states that her LMP was September 04, 2019. Patient denies any sick contacts. She denies any recent travel. She denies any chest pain or shortness of breath. She denies any dysuria or hematuria. Allergies: Coded Allergies: KETOROLAC (Verified Allergy, Mild, 12/04/17) pt c/o had rashehs after using. 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 - 3 weeks ago COVID-19 Screening: Negative COVID-19 COVID-19 Testing Source: nasopharyngel Patient History Last Menstrual Period: 09/04/19 Reviewed Nursing Documentation: PMH: Agreed; PSxH: Agreed Nursing Documentation-PMH Past Medical History: No History, Except For Hx Cardiac Problems: No - left ovarian cyst removal 3 months ago Hx Hypertension: No Hx Pacemaker: No Hx Asthma: Yes Hx COPD: No Hx Diabetes: No Hx Cancer: No Hx Gastrointestinal Problems: No Hx Dialysis: No History Of Psychiatric Problem: No Hx Neurological Problems: No - concussion Hx Cerebrovascular Accident: No Hx Seizures: No Review of Systems All Other Systems: negative except mentioned in HPI Physical Exam Vital Signs Date Time Temp Pulse Resp B/P (MAP) Pulse Ox O2 Delivery O2 Flow Rate FiO2 10/01/19 07:22 98.4 109 16 110/74 (86) 99 Room Air Sp02 EP Interpretation: reviewed, normal General Appearance: alert, GCS 15, non-toxic, mild distress Head: normocephalic, atraumatic Eyes: bilateral eye normal inspection, bilateral eye PERRL ENT: dry mucus membranes Neck: full range of motion, supple/symm/no masses Respiratory: chest non-tender, lungs clear, normal breath sounds, speaking full sentences Cardiovascular #1: tachycardia Cardiovascular #2: 2+ carotid (R), 2+ carotid (L), 2+ radial (R), 2+ radial (L) Gastrointestinal: normal bowel sounds, soft, non-distended, no guarding, no rebound, other - Bilateral lower abdominal pain Rectal: deferred Genitourinary: no CVA tenderness Musculoskeletal: normal range of motion, no calf tenderness, moves extm spontaneously, gait/station normal 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 Quantitative hCG has been sent and is pending. At 8 AM I have updated the patient on her positive lab test. She states that she has been once before and has a child at home. Patient states that she had some heavy bleeding. hCG less than 200. Patient's potassium is 3.1. Patient given 40 mEq of potassium chloride. Patient given IV fluids. Patient is well-appearing and vital signs are stable. Patient's ultrasound does not demonstrate an intrauterine . Could be early versus spontaneous versus ectopic . I gave this information to the patient as well as a copy of her ultrasound results. I advised her that she needs a follow-up ultrasound within the next 5 days as well as a repeat hCG level. Patient's urine is equivocal and I will treat with Keflex. After discussing risks and benefits of further diagnostics, treatment plans, as well as indications for and risks of admission, the patient is agreeable to being discharged home. I have explained that their evaluation and treatment in the emergency department today is an important step towards them achieving better health but that their evaluation today is not intended to replace further evaluation and treatment by a physician in their local clinic. I have explained that while the current findings suggest no immediate life threatening emergency they will require further evaluation and treatment by a physician of their choice in their area. They understand that it will be necessary for them to review the final reports of their ED visit with their clinic physician. We have reviewed indications for return to the Emergency Department. I have explained that additional time may need to pass and/or additional testing as an outpatient may be necessary before a definitive diagnosis can be made. They tell me they are willing to follow up as instructed within the timeframe I recommend. They appear to understand what we discussed. Additionally they understand that if they are unable to be seen by an outpatient physician they are welcome, and in fact should, return to the Emergency Department for a repeat evaluation. The patient is stable at time of discharge. Laboratory Tests Test 10/01/19 07:30 White Blood Count 11.8 K/UL (4.8-10.8) H Red Blood Count 4.59 M/UL (4.20-5.40) Hemoglobin 13.4 G/DL (12.0-16.0) Hematocrit 41.8 % (37.0-47.0) Mean Corpuscular Volume 91 FL (80-99) Mean Corpuscular Hemoglobin 29.1 PG (27.0-31.0) Mean Corpuscular Hemoglobin Concent 32.0 G/DL (32.0-36.0) Red Cell Distribution Width 14.6 % (11.6-14.8) Platelet Count 333 K/UL (150-450) Mean Platelet Volume 7.7 FL (6.5-10.1) Neutrophils (%) (Auto) 76.4 % (45.0-75.0) H Lymphocytes (%) (Auto) 17.3 % (20.0-45.0) L Monocytes (%) (Auto) 5.3 % (1.0-10.0) Eosinophils (%) (Auto) 0.4 % (0.0-3.0) Basophils (%) (Auto) 0.6 % (0.0-2.0) Urine Color Yellow Urine Appearance Clear Urine pH 6 (4.5-8.0) Urine Specific [place] 1.015 (1.005-1.035) Urine Protein 1+ (NEGATIVE) H Urine Glucose (UA) Negative (NEGATIVE) Urine Ketones Negative (NEGATIVE) Urine Blood 3+ (NEGATIVE) H Urine Nitrite Negative (NEGATIVE) Urine Bilirubin Negative (NEGATIVE) Urine Urobilinogen Normal MG/DL (0.0-1.0) Urine Leukocyte Esterase 2+ (NEGATIVE) H Urine RBC 2-4 /HPF (0 - 2) H Urine WBC 2-4 /HPF (0 - 2) Urine Squamous Epithelial Cells Few /LPF (NONE/OCC) Urine Bacteria Few /HPF (NONE) Urine Mucus Few /LPF (NONE/OCC) H Urine HCG, Qualitative Positive (NEGATIVE) Sodium Level 138 MMOL/L (136-145) Potassium Level 3.1 MMOL/L (3.5-5.1) L Chloride Level 102 MMOL/L (98-107) Carbon Dioxide Level 24 MMOL/L (21-32) Anion Gap 13 mmol/L (5-15) Blood Urea Nitrogen 9 mg/dL (7-18) Creatinine 0.8 MG/DL (0.55-1.30) Estimated Glomerular Filtration Rate > 60 mL/min (>60) Glucose Level 115 MG/DL (74-106) H Calcium Level 8.3 MG/DL (8.5-10.1) L Magnesium Level 1.8 MG/DL (1.8-2.4) Total Bilirubin 0.3 MG/DL (0.2-1.0) Aspartate Amino Transferase (AST) 13 U/L (15-37) L Alanine Aminotransferase (ALT) 13 U/L (12-78) Alkaline Phosphatase 77 U/L (46-116) Total Protein 8.7 G/DL (6.4-8.2) H Albumin 4.5 G/DL (3.4-5.0) Globulin 4.2 g/dL Albumin/Globulin Ratio 1.1 (1.0-2.7) Lipase 213 U/L (73-393) Human Chorionic Gonadotropin, Quant 193 mIU/mL (1-6) H Urine Opiates Screen Negative (NEGATIVE) Urine Barbiturates Screen Negative (NEGATIVE) Phencyclidine (PCP) Screen Negative (NEGATIVE) Urine Amphetamines Screen Negative (NEGATIVE) Urine Benzodiazepines Screen Negative (NEGATIVE) Urine Cocaine Screen Negative (NEGATIVE) Urine Marijuana (THC) Screen Positive (NEGATIVE) H Last Vital Signs Date Time Temp Pulse Resp B/P (MAP) Pulse Ox O2 Delivery O2 Flow Rate FiO2 10/01/19 07:22 98.4 109 16 110/74 (86) 99 Room Air Disposition: HOME, SELF-CARE Condition: Stable Scripts Metoclopramide Hcl* (REGLAN*) 10 Mg Tablet 10 MG ORAL THREE TIMES A DAY PRN for nausea, #14 TAB Prov: Sheridan Stewart M.DYeni 10/01/19 Cephalexin* (KEFLEX*) 500 Mg Tablet 500 MG ORAL EVERY 8 HOURS for 5 Days, CAP Prov: Sheridan Stewart M.D. 10/01/19 Referrals: NOT CHOSEN IPA/,REFERRING (PCP) Additional Instructions: The patient was provided with discharge instructions, notified to follow-up with a primary care doctor and or specialist in the next 24-48 hours, and to return to the ED if they have worsening of their symptoms. Please note that this report is being documented using DRAGON technology. This can lead to erroneous entry secondary to incorrect interpretation by the dictating instrument. Sheridan Stewart M.D. Oct 01, 2019 07:33
[2019-10-01] MEDS ORDERED: ALBUTEROL SULF8.5 G1 INH (07:41)
[2019-10-01] MEDS ORDERED: fentaNYL 100 mcg/2 mL IV ONE (07:45)
--- NOTE | 2019-10-01 07:45 | NUR ---
ED Nurse Note:pt. came with c/o lower abdominal pain, nausea ,vomiting since 1 AM, VSS, blood and urine sent to labs, IV meds and fluids given to pt.
[2019-10-01 07:50] VITALS: BP 110/74
[2019-10-01 07:54] LABS: APPEARANCE,URINE CLEAR; BASOPHILS % (AUTO) 0.6 % (0.0-2.0); BILIRUBIN, URINE NEGATIVE (NEGATIVE); EOSINOPHILS % (AUTO) 0.4 % (0.0-3.0); GLUCOSE, URINE (UA) NEGATIVE (NEGATIVE); HEMATOCRIT 41.8 % (37.0-47.0); HEMOGLOBIN 13.4 G/DL (12.0-16.0); KETONES,URINE NEGATIVE (NEGATIVE); LEUKOCYTE ESTERASE ,URINE 2+ (NEGATIVE); LYMPHOCYTES % (AUTO) 17.3 % (20.0-45.0); MEAN CORPUSCULAR VOLUME 91 FL (80-99); MONOCYTES % (AUTO) 5.3 % (1.0-10.0); NEUTROPHILS % (AUTO) 76.4 % (45.0-75.0); NITRITE,URINE NEGATIVE (NEGATIVE); PH,URINE 6 (4.5-8.0); PLATELET COUNT 333 K/UL (150-450); PROTEIN,URINE 1+ (NEGATIVE); RED BLOOD COUNT 4.59 M/UL (4.20-5.40); RED CELL DISTRIBUTION WIDTH 14.6 % (11.6-14.8); UROBILINOGEN,URINE NORMAL MG/DL (0.0-1.0); WHITE BLOOD COUNT 11.8 K/UL (4.8-10.8)
[2019-10-01 08:04] LABS: ANION GAP 13 mmol/L (5-15); BLOOD UREA NITROGEN 9 mg/dL (7-18); CALCIUM 8.3 MG/DL (8.5-10.1); CARBON DIOXIDE 24 MMOL/L (21-32); CHLORIDE 102 MMOL/L (98-107); COLOR,URINE YELLOW; CREATININE 0.8 MG/DL (0.55-1.30); POTASSIUM 3.1 MMOL/L (3.5-5.1); SODIUM 138 MMOL/L (136-145)
[2019-10-01 08:09] LABS: ALANINE AMINOTRANSFERASE 13 U/L (12-78); ALBUMIN 4.5 G/DL (3.4-5.0); ALBUMIN/GLOBULIN RATIO 1.1 (1.0-2.7); ALKALINE PHOSPHATASE 77 U/L (46-116); ASPARTATE AMINO TRANSFERASE 13 U/L (15-37); BILIRUBIN,TOTAL 0.3 MG/DL (0.2-1.0)
[2019-10-01] MEDS ORDERED: Cephalexin 500mg cap ORAL ONE (08:15)
--- NOTE | 2019-10-01 09:04 | Diagnostic Imaging Report ---
Indication: Pelvic pain, positive test Technique: Transabdominal and transvaginal images of the pelvis. Doppler interrogation of the ovaries Comparison: 03/08/2019 Findings: Uterus measures 7.7 cm length by 4.2 cm AP. Endometrium measures 7 mm thick. No intrauterine visualized. No myometrial abnormality. Right ovary measures 2.7 cm in length. Left ovary measures 2.8 cm length. 2.4 cm left adnexal thin-walled paraovarian cyst is noted Small amount of free fluid is seen within the cul-de-sac. Both ovaries demonstrate normal blood flow. No adnexal mass. Impression: No intrauterine demonstrated. Differential considerations include very early , spontaneous , ectopic . Correlate with serial beta hCGs and clinical findings. Consider follow-up sonography as indicated her graft trace free pelvic cul-de-sac fluid, presumably physiologic 2.4 cm left paraovarian cyst incidentally noted. Uncertain as to whether or not this is the same cyst that was evident on prior studies
[2019-10-01] MEDS ORDERED: CEPHALEXIN500 M1 ORAL (09:08)
[2019-10-01] MEDS ORDERED: REGLAN10 MG ORAL (09:08)
[2019-10-01 09:13] VITALS: BP 112/75
== END 2019-10-01 09:14 | disposition home or self-care (01) ==
LOC: EMR 07:30
DX: O23.40 Unspecified infection of urinary tract in pregnancy, unspecified trimester (principal); O34.81 Maternal care for other abnormalities of pelvic organs, first trimester; O99.321 Drug use complicating pregnancy, first trimester; N83.202 Unspecified ovarian cyst, left side; E87.6 Hypokalemia; F12.20 Cannabis dependence, uncomplicated; Z88.0 Allergy status to penicillin; Z91.041 Radiographic dye allergy status; Z3A.00 Weeks of gestation of pregnancy not specified; N93.9 Abnormal uterine and vaginal bleeding, unspecified
CPT/HCPCS: 36415; 76801; 80053; 80307; 81003; 81025; 83690; 83735; 84702; 85025; 96361; 96374; 96375; J2405; J3010; J7030; Z7502; 99284; J8499

== ENCOUNTER 2019-10-16 01:48 | Inpatient (IN) | payer MEDICAID ==
[~2019-10-16] VITALS: Ht 160 cm; Wt 59.0 kg
[~2019-10-16 01:48] MED LIST changes: +ALBUTEROL SULF8.5 G1 INH; +CEPHALEXIN500 M1 ORAL; +REGLAN10 MG ORAL
[2019-10-16 01:55] VITALS: BP 115/66
--- NOTE | 2019-10-16 02:10 | Emergency Room Report ---
History of Present Illness General Chief Complaint: Abdominal Pain Source: Patient (Davis Barton MD) Present Illness HPI 24-year-old female presents to ED complaining of abdominal pain. Started tonight. Pain is cramping, 10 out of 10, nonradiating also notes bleeding. States that she was seen here recently and was noted to be however no IUP noted on ultrasound. States she followed up with her doctor and had an on Monday. States she also has chills. Afebrile in triage. Denies chest pain or shortness of breath. Denies any diarrhea. No other aggravating relieving factors. Denies any other associated symptoms (Davis Barton MD) Allergies: Coded Allergies: KETOROLAC (Verified Allergy, Mild, 12/04/17) pt c/o had rashehs after using. IODINE (Verified Allergy, Unknown, 07/17/17) PENICILLINS (Verified Allergy, Unknown, 07/17/17) COVID-19 Screening Contact w/high risk pt: No Recent Travel to affected area: No Experienced COVID-19 symptoms?: No COVID-19 Testing performed CARDIOLOGY NURSE PRACTITIONER: No (Davis Barton MD) Patient History Past Medical History: asthma Past Surgical History: none Pertinent Family History: none Social History: Denies: smoking, alcohol use, drug use Last Menstrual Period: 09/04/19 Now: No : 2 Para: 1 Immunizations: UTD Reviewed Nursing Documentation: PMH: Agreed; PSxH: Agreed (Davis Barton MD) Nursing Documentation-PMH Past Medical History: No History, Except For Hx Cardiac Problems: No - left ovarian cyst removal 3 months ago Hx Hypertension: No Hx Pacemaker: No Hx Asthma: Yes Hx COPD: No Hx Diabetes: No Hx Cancer: No Hx Gastrointestinal Problems: No Hx Dialysis: No Hx Neurological Problems: No - concussion Hx Cerebrovascular Accident: No Hx Seizures: No (Davis Barton MD) Review of Systems All Other Systems: negative except mentioned in HPI (Davis Barton MD) Physical Exam Vital Signs Date Time Temp Pulse Resp B/P (MAP) Pulse Ox O2 Delivery O2 Flow Rate FiO2 10/16/19 01:50 98.2 122 11 117/59 (78) 100 Room Air Sp02 EP Interpretation: reviewed, normal General Appearance: alert, GCS 15, non-toxic, mild distress Head: normocephalic, atraumatic Eyes: bilateral eye normal inspection, bilateral eye PERRL ENT: hearing grossly normal, normal pharynx, no angioedema, normal voice Neck: full range of motion, supple/symm/no masses Respiratory: chest non-tender, lungs clear, normal breath sounds, speaking full sentences Cardiovascular #1: regular rate, rhythm, no edema Cardiovascular #2: 2+ carotid (R), 2+ carotid (L), 2+ radial (R), 2+ radial (L) , 2+ dorsalis pedis (R), 2+ dorsalis pedis (L) Gastrointestinal: normal bowel sounds, soft, non-distended, no guarding, no rebound, tenderness - suprapubic Rectal: deferred Genitourinary: normal inspection, no CVA tenderness Musculoskeletal: back normal, normal range of motion, gait/station normal, non- tender Neurologic: alert, motor strength/tone normal, oriented x3, sensory intact, responsive, speech normal Psychiatric: judgement/insight normal, memory normal, mood/affect normal, no suicidal/homicidal ideation Reflexes: 3+ bicep (R), 3+ bicep (L), 3+ tricep (R), 3+ tricep (L), 3+ knee (R) , 3+ knee (L) Skin: no rash Lymphatic: no adenopathy (Davis Barton MD) Medical Decision Making ER Course I was informed by registration to admit the patient here at [facility]. Therefore case was discussed with Dr. Flaco Vaughn. Case was also discussed with SANDFILL OPERATOR [employer] on-call Dr. Nguyen. Patient was started on antibiotics will be admitted for further evaluation and was given pain medications. Patient's repeat exam shows tender left lower quadrant and suprapubic region. Some pain with palpation otherwise nontoxic appearing normal vital signs. (Bubba Catalan MD) Last Vital Signs Date Time Temp Pulse Resp B/P (MAP) Pulse Ox O2 Delivery O2 Flow Rate FiO2 10/16/19 01:50 98.2 122 11 117/59 (78) 100 Room Air (Davis Barton MD) Disposition: ADMITTED INPATIENT Davis Barton MD Oct 16, 2019 02:10 Bubba Catalan MD Oct 16, 2019 07:04
[2019-10-16] MEDS ORDERED: Morphine Sulfate 4mg/ml Inj (IV USE ONLY) IVP ONE ×2 (02:15→02:45)
[2019-10-16 02:38] LABS: BASOPHILS % (AUTO) 0.9 % (0.0-2.0); BILIRUBIN, URINE NEGATIVE (NEGATIVE); COLOR,URINE PALE YELLOW; EOSINOPHILS % (AUTO) 0.8 % (0.0-3.0); GLUCOSE, URINE (UA) NEGATIVE (NEGATIVE); HEMOGLOBIN 13.6 G/DL (12.0-16.0); KETONES,URINE NEGATIVE (NEGATIVE); LEUKOCYTE ESTERASE ,URINE 2+ (NEGATIVE); MEAN CORPUSCULAR VOLUME 90 FL (80-99); MONOCYTES % (AUTO) 5.6 % (1.0-10.0); NEUTROPHILS % (AUTO) 62.7 % (45.0-75.0); NITRITE,URINE NEGATIVE (NEGATIVE); PH,URINE 6.5 (4.5-8.0); PLATELET COUNT 313 K/UL (150-450); PROTEIN,URINE NEGATIVE (NEGATIVE); RED BLOOD COUNT 4.68 M/UL (4.20-5.40); RED CELL DISTRIBUTION WIDTH 13.3 % (11.6-14.8); UROBILINOGEN,URINE NORMAL MG/DL (0.0-1.0); WHITE BLOOD COUNT 11.2 K/UL (4.8-10.8)
[2019-10-16 02:49] LABS: ANION GAP 10 mmol/L (5-15); BLOOD UREA NITROGEN 8 mg/dL (7-18); CALCIUM 9.1 MG/DL (8.5-10.1); CARBON DIOXIDE 24 MMOL/L (21-32); CHLORIDE 103 MMOL/L (98-107); POTASSIUM 3.2 MMOL/L (3.5-5.1); SODIUM 137 MMOL/L (136-145)
[2019-10-16 02:54] LABS: APPEARANCE,URINE SLIGHTLY CLOUDY
[2019-10-16 02:55] VITALS: BP 123/68
[2019-10-16 02:55] LABS: ALANINE AMINOTRANSFERASE 22 U/L (12-78); ALBUMIN 4.5 G/DL (3.4-5.0); ALBUMIN/GLOBULIN RATIO 1.1 (1.0-2.7); ALKALINE PHOSPHATASE 68 U/L (46-116); ASPARTATE AMINO TRANSFERASE 16 U/L (15-37); BILIRUBIN,TOTAL 0.2 MG/DL (0.2-1.0)
[2019-10-16] MEDS ORDERED: cefTRIAXone 1 GM in NS 55 ML IVPB ONE (03:15)
--- NOTE | 2019-10-16 03:57 | Diagnostic Imaging Report ---
EXAM: US Pelvis Transabdominal and Transvaginal, Complete CLINICAL HISTORY: ABD PAIN TECHNIQUE: Real-time complete transabdominal and transvaginal pelvic ultrasound with image documentation. Transvaginal imaging was used for better evaluation of the endometrium and adnexa. COMPARISON: No relevant prior studies available. FINDINGS: The uterus measures approximately 7.8 x 5.6 x 4.3 cm. Endometrial thickness of 7 mm is within normal limits. No myometrial masses. No endometrial fluid identified. Right ovary measures 2.7 x 1.6 x 2.9 cm. Negative for torsion. Left ovary measures 2.2 x 1.7 x 3.1 cm. Negative for left ovarian torsion. A 22 mm cystic focus in the left adnexa may reflect a par ovarian cysts. No pelvic fluid collections. Impression: No acute findings
[2019-10-16] MEDS ORDERED: HYDROmorphone 1mg/ml Carpuject IVP ONE ×2 (04:00→07:15)
[2019-10-16 04:28] VITALS: BP 113/75
--- NOTE | 2019-10-16 05:58 | Diagnostic Imaging Report ---
EXAM: CT Abdomen and Pelvis Without Intravenous Contrast CLINICAL HISTORY: ABD PAIN TECHNIQUE: Axial computed tomography images of the abdomen and pelvis without intravenous contrast. CTDI is 4 mGy and DLP is 222 mGy-cm. One or more of the following dose reduction techniques were used: automated exposure control, adjustment of the mA and/or kV according to patient size, use of iterative reconstruction technique. COMPARISON: CT abdomen and pelvis dated 11/16/17. FINDINGS: Lung bases: Unremarkable. No mass. No consolidation. ABDOMEN: Liver: Unremarkable. Gallbladder and bile ducts: Unremarkable. No calcified stones. No ductal dilation. Pancreas: Unremarkable. No ductal dilation. Spleen: Unremarkable. No splenomegaly. Adrenals: Unremarkable. No mass. Kidneys and ureters: Unremarkable. No obstructing stones. No hydronephrosis. Stomach and bowel: Unremarkable. No obstruction. No mucosal thickening. PELVIS: Appendix: No findings to suggest acute appendicitis. Bladder: Unremarkable. No stones. Reproductive: Unremarkable as visualized. ABDOMEN and PELVIS: Intraperitoneal space: Unremarkable. No free air. No significant fluid collection. Bones/joints: No acute fracture. No dislocation. Soft tissues: Unremarkable. Vasculature: Unremarkable. No abdominal aortic aneurysm. Lymph nodes: Unremarkable. No enlarged lymph nodes. IMPRESSION: No acute abdominal or pelvic pathology. No CT cause for pain is identified.
[2019-10-16 06:40] VITALS: BP 127/78
[2019-10-16] MEDS ORDERED: D5 1/2NS 1,000 ML IV SCH (09:45)
[2019-10-16] MEDS: Morphine Sulfate 2mg/ml Inj(IV/IM USE ONLY) IVP PRN ×2 (10:46→15:59)
[2019-10-16 11:04] LABS: EOSINOPHILS % (AUTO) 0.6 % (0.0-3.0); HEMATOCRIT 35.9 % (37.0-47.0); HEMOGLOBIN 11.7 G/DL (12.0-16.0); LYMPHOCYTES % (AUTO) 31.7 % (20.0-45.0); MEAN CORPUSCULAR VOLUME 91 FL (80-99); MONOCYTES % (AUTO) 6.4 % (1.0-10.0); NEUTROPHILS % (AUTO) 60.3 % (45.0-75.0); PLATELET COUNT 257 K/UL (150-450); RED BLOOD COUNT 3.96 M/UL (4.20-5.40); WHITE BLOOD COUNT 8.8 K/UL (4.8-10.8)
--- NOTE | 2019-10-16 11:16 | Consultation ---
History of Present Illness General Date patient seen: Oct 16, 2019 Chief Complaint: Abdominal Pain Present Illness HPI 24 y/o F with hx of asthma, L ovarian cyst removal (3 months ago) presented to ED on 10/15 with 1 days of abd pain (cramping, 10/10 intensity, non radiating) and vaginal bleeding. Reports recent positive test but no IUP noted on ultrasound. She had procedure last Monday (10/10). + chills Denied CP, SOB, diarrhea I Allergies: Coded Allergies: KETOROLAC (Verified Allergy, Mild, 12/04/17) pt c/o had rashehs after using. IODINE (Verified Allergy, Unknown, 07/17/17) PENICILLINS (Verified Allergy, Unknown, 07/17/17) Medication History Scheduled Albuterol Sulfate* (Albuterol Sulfate Hfa*), 2 PUFF INH Q6H, (Reported) Cephalexin* (Keflex*), 500 MG ORAL EVERY 8 HOURS Scheduled PRN Metoclopramide Hcl* (Reglan*), 10 MG ORAL THREE TIMES A DAY PRN for nausea Patient History Healthcare decision maker Resuscitation status Advanced Directive on File Patient History Narrative . Pmhx: as above Shx: Denies: smoking, alcohol use, drug use Fhx: non contributory Review of Systems All Other Systems: negative except mentioned in HPI Physical Exam Physical Exam Narrative General Appearance: alert Head: normocephalic, atraumatic Eyes: bilateral eye normal inspection, bilateral eye PERRL ENT: hearing grossly normal, normal pharynx, no angioedema, normal voice Neck: full range of motion, supple/symm/no masses Respiratory: chest non-tender, lungs clear, normal breath sounds, speaking full sentences Cardiovascular: regular rate, rhythm, no edema Gastrointestinal: normal bowel sounds, soft, non-distended, no guarding, no rebound, tenderness - suprapubic Last 24 Hour Vital Signs Date Time Temp Pulse Resp B/P (MAP) Pulse Ox O2 Delivery O2 Flow Rate FiO2 10/16/19 10:23 Room Air 10/16/19 07:41 97.8 10/16/19 07:41 97.8 92 19 124/74 100 Room Air 99 10/16/19 06:40 97.8 96 20 127/78 99 Room Air 99 10/16/19 04:28 98.4 109 20 113/75 99 Room Air 99 7/22/20 04:28 98.2 10/16/19 03:22 98.2 10/16/19 02:55 125 25 123/68 99 Room Air 10/16/19 02:41 98.2 10/16/19 01:55 98.3 111 18 115/66 100 Room Air 99 10/16/19 01:55 111 18 Room Air 99 10/16/19 01:50 98.2 122 11 117/59 (78) 100 Room Air Intake and Output 10/15/19 10/16/19 19:00 07:00 Intake Total 500 ml Balance 500 ml Intake IV Total 500 ml # Voids 1 Laboratory Tests Test 10/16/19 02:15 10/16/19 10:30 White Blood Count 11.2 K/UL (4.8-10.8) H 8.8 K/UL (4.8-10.8) Red Blood Count 4.68 M/UL (4.20-5.40) 3.96 M/UL (4.20-5.40) L Hemoglobin 13.6 G/DL (12.0-16.0) 11.7 G/DL (12.0-16.0) L Hematocrit 42.0 % (37.0-47.0) 35.9 % (37.0-47.0) L Mean Corpuscular Volume 90 FL (80-99) 91 FL (80-99) Mean Corpuscular Hemoglobin 29.0 PG (27.0-31.0) 29.6 PG (27.0-31.0) Mean Corpuscular Hemoglobin Concent 32.4 G/DL (32.0-36.0) 32.6 G/DL (32.0-36.0) Red Cell Distribution Width 13.3 % (11.6-14.8) 14.0 % (11.6-14.8) Platelet Count 313 K/UL (150-450) 257 K/UL (150-450) Mean Platelet Volume 8.4 FL (6.5-10.1) 8.5 FL (6.5-10.1) Neutrophils (%) (Auto) 62.7 % (45.0-75.0) 60.3 % (45.0-75.0) Lymphocytes (%) (Auto) 30.0 % (20.0-45.0) 31.7 % (20.0-45.0) Monocytes (%) (Auto) 5.6 % (1.0-10.0) 6.4 % (1.0-10.0) Eosinophils (%) (Auto) 0.8 % (0.0-3.0) 0.6 % (0.0-3.0) Basophils (%) (Auto) 0.9 % (0.0-2.0) 1.0 % (0.0-2.0) Urine Color Pale yellow Urine Appearance Slightly cloudy Urine pH 6.5 (4.5-8.0) Urine Specific [place] 1.010 (1.005-1.035) Urine Protein Negative (NEGATIVE) Urine Glucose (UA) Negative (NEGATIVE) Urine Ketones Negative (NEGATIVE) Urine Blood 5+ (NEGATIVE) H Urine Nitrite Negative (NEGATIVE) Urine Bilirubin Negative (NEGATIVE) Urine Urobilinogen Normal MG/DL (0.0-1.0) Urine Leukocyte Esterase 2+ (NEGATIVE) H Urine RBC 20-30 /HPF (0 - 2) H Urine WBC 10-15 /HPF (0 - 2) H Urine Squamous Epithelial Cells Many /LPF (NONE/OCC) H Urine Bacteria Moderate /HPF (NONE) H Urine HCG, Qualitative Positive (NEGATIVE) Sodium Level 137 MMOL/L (136-145) Pending Potassium Level 3.2 MMOL/L (3.5-5.1) L Pending Chloride Level 103 MMOL/L (98-107) Pending Carbon Dioxide Level 24 MMOL/L (21-32) Pending Anion Gap 10 mmol/L (5-15) Blood Urea Nitrogen 8 mg/dL (7-18) Pending Creatinine 1.0 MG/DL (0.55-1.30) Pending Estimat Glomerular Filtration Rate > 60 mL/min (>60) Pending Glucose Level 122 MG/DL (74-106) H Pending Calcium Level 9.1 MG/DL (8.5-10.1) Pending Total Bilirubin 0.2 MG/DL (0.2-1.0) Aspartate Amino Transf (AST/SGOT) 16 U/L (15-37) Alanine Aminotransferase (ALT/SGPT) 22 U/L (12-78) Alkaline Phosphatase 68 U/L (46-116) Total Protein 8.7 G/DL (6.4-8.2) H Albumin 4.5 G/DL (3.4-5.0) Globulin 4.2 g/dL Albumin/Globulin Ratio 1.1 (1.0-2.7) Lipase 234 U/L (73-393) Human Chorionic Gonadotropin, Quant 376 mIU/mL (1-6) H Urine Opiates Screen Negative (NEGATIVE) Urine Barbiturates Screen Negative (NEGATIVE) Phencyclidine (PCP) Screen Negative (NEGATIVE) Urine Amphetamines Screen Negative (NEGATIVE) Urine Benzodiazepines Screen Negative (NEGATIVE) Urine Cocaine Screen Negative (NEGATIVE) Urine Marijuana (THC) Screen Positive (NEGATIVE) H Height (Feet): 5 Height (Inches): 3.00 Weight (Pounds): 130 Medications Current Medications Medications (Trade) Dose Ordered Sig/Pearl Route PRN Reason Start Time Stop Time Status Last Admin Dose Admin Dextrose/Sodium Chloride 1,000 ml @ 60 mls/hr [id number] IV 10/16/19 09:45 11/15/19 09:44 10/16/19 10:42 Morphine Sulfate (Morphine Sulfate) 2 mg Q4H PRN IVP For Pain 10/16/19 09:45 10/23/19 09:44 10/16/19 10:46 Ondansetron HCl (Zofran) 4 mg Q4H PRN IVP Nausea & Vomiting 10/16/19 09:45 11/15/19 09:44 10/16/19 10:00 Assessment/Plan Assessment/Plan: Abx: Ceftriaxone x1 10/15 Assessment: Abdominal pain Recent procedure (10/10)- probable post-op endometritis -Pelvic US: no acute findings -CT abd/p: No acute abdominal or pelvic pathology. No CT cause for pain is identified. Afebrile Mild leukocytosis, SP -u/a wbc 10-15,nit neg, leuk +2 UDS + THC asthma L ovarian cyst removal (3 months ago) Plan: -Start empiric CLindamycin and Doxycycline -f/u cx -Monitor CBC/CMP, temperatures -wallpaper inspector eval Thank you for this consultation. Will continue to follow along with you. Discussed with Kristine Andrade M.D. Oct 16, 2019 11:16
[2019-10-16 11:19] LABS: ANION GAP 11 mmol/L (5-15); BLOOD UREA NITROGEN 3 mg/dL (7-18); CARBON DIOXIDE 23 MMOL/L (21-32); CHLORIDE 105 MMOL/L (98-107); CREATININE 0.6 MG/DL (0.55-1.30); POTASSIUM 3.3 MMOL/L (3.5-5.1); SODIUM 139 MMOL/L (136-145)
--- NOTE | 2019-10-16 11:58 | General Progress Note ---
Assessment/Plan Problem List: (1) Abdominal pain ICD Codes: R10.9 - Unspecified abdominal pain SNOMED: 49821163 (2) Urinary tract infection ICD Codes: N39.0 - Urinary tract infection, site not specified SNOMED: 45180445 (3) Ovarian cyst ICD Codes: N83.209 - Unspecified ovarian cyst, unspecified side SNOMED: 09587001 (4) Menorrhagia ICD Codes: N92.0 - Excessive and frequent menstruation with regular cycle SNOMED: 571797747 Assessment/Plan: 24 y/o F with hx of asthma, L ovarian cyst removal (3 months ago) presented to ED on 10/15 with 1 days of abd pain (cramping, 10/10 intensity, non radiating) and vaginal bleeding. Reports recent positive test but no IUP noted on ultrasound. She had last Monday (10/10). + chills fu H&H abx per ID STATISTICS TUTOR consult Subjective ROS Limited/Unobtainable: Yes Allergies: Coded Allergies: KETOROLAC (Verified Allergy, Mild, 12/04/17) pt c/o had rashehs after using. IODINE (Verified Allergy, Unknown, 07/17/17) PENICILLINS (Verified Allergy, Unknown, 07/17/17) Objective Last 24 Hour Vital Signs Date Time Temp Pulse Resp B/P (MAP) Pulse Ox O2 Delivery O2 Flow Rate FiO2 10/16/19 10:23 Room Air 10/16/19 07:41 97.8 10/16/19 07:41 97.8 92 19 124/74 100 Room Air 99 10/16/19 06:40 97.8 96 20 127/78 99 Room Air 99 10/16/19 04:28 98.4 109 20 113/75 99 Room Air 99 10/16/19 04:28 98.2 10/16/19 03:22 98.2 10/16/19 02:55 125 25 123/68 99 Room Air 10/16/19 02:41 98.2 10/16/19 01:55 98.3 111 18 115/66 100 Room Air 99 10/16/19 01:55 111 18 Room Air 99 10/16/19 01:50 98.2 122 11 117/59 (78) 100 Room Air Intake and Output 7/21/20 7/22/20 19:00 07:00 Intake Total 500 ml Balance 500 ml Intake IV Total 500 ml # Voids 1 Laboratory Tests 10/16/19 02:15: White Blood Count 11.2H, Red Blood Count 4.68, Hemoglobin 13.6, Hematocrit 42.0 , Mean Corpuscular Volume 90, Mean Corpuscular Hemoglobin 29.0, Mean Corpuscular Hemoglobin Concent 32.4, Red Cell Distribution Width 13.3, Platelet Count 313, Mean Platelet Volume 8.4, Neutrophils (%) (Auto) 62.7, Lymphocytes (% ) (Auto) 30.0, Monocytes (%) (Auto) 5.6, Eosinophils (%) (Auto) 0.8, Basophils ( %) (Auto) 0.9, Urine Color Pale yellow, Urine Appearance Slightly cloudy, Urine pH 6.5, Urine Specific [place] 1.010, Urine Protein Negative, Urine Glucose (UA ) Negative, Urine Ketones Negative, Urine Blood 5+H, Urine Nitrite Negative, Urine Bilirubin Negative, Urine Urobilinogen Normal, Urine Leukocyte Esterase 2+ H, Urine RBC 20-30H, Urine WBC 10-15H, Urine Squamous Epithelial Cells ManyH, Urine Bacteria ModerateH, Urine HCG, Qualitative Positive, Sodium Level 137, Potassium Level 3.2L, Chloride Level 103, Carbon Dioxide Level 24, Anion Gap 10 , Blood Urea Nitrogen 8, Creatinine 1.0, Estimat Glomerular Filtration Rate > 60 , Glucose Level 122H, Calcium Level 9.1, Total Bilirubin 0.2, Aspartate Amino Transf (AST/SGOT) 16, Alanine Aminotransferase (ALT/SGPT) 22, Alkaline Phosphatase 68, Total Protein 8.7H, Albumin 4.5, Globulin 4.2, Albumin/Globulin Ratio 1.1, Lipase 234, Human Chorionic Gonadotropin, Quant 376H, Urine Opiates Screen Negative, Urine Barbiturates Screen Negative, Phencyclidine (PCP) Screen Negative, Urine Amphetamines Screen Negative, Urine Benzodiazepines Screen Negative, Urine Cocaine Screen Negative, Urine Marijuana (THC) Screen PositiveH 10/16/19 10:30: White Blood Count 8.8, Red Blood Count 3.96L, Hemoglobin 11.7L, Hematocrit 35.9L , Mean Corpuscular Volume 91, Mean Corpuscular Hemoglobin 29.6, Mean Corpuscular Hemoglobin Concent 32.6, Red Cell Distribution Width 14.0, Platelet Count 257, Mean Platelet Volume 8.5, Neutrophils (%) (Auto) 60.3, Lymphocytes (% ) (Auto) 31.7, Monocytes (%) (Auto) 6.4, Eosinophils (%) (Auto) 0.6, Basophils ( %) (Auto) 1.0, Sodium Level 139, Potassium Level 3.3L, Chloride Level 105, Carbon Dioxide Level 23, Anion Gap 11, Blood Urea Nitrogen 3L, Creatinine 0.6, Estimat Glomerular Filtration Rate > 60, Glucose Level 88, Calcium Level 8.0L Height (Feet): 5 Height (Inches): 3.00 Weight (Pounds): 130 General Appearance: no apparent distress EENT: PERRL/EOMI Neck: supple Cardiovascular: normal rate Respiratory/Chest: decreased breath sounds Abdomen: normal bowel sounds, non tender, soft Extremities: non-tender Tone Leger MD Oct 16, 2019 11:58
[2019-10-16 12:00] VITALS: BP 98/62
--- NOTE | 2019-10-16 13:30 | History and Physical Report ---
DATE OF ADMISSION: 10/16/2019 TIME SEEN: 10 a.m. CONSULTANTS: 1. Tone Leger MD. 2. Nahun Cee MD. 3. Brad Trivedi MD. CHIEF COMPLAINT: UTI, abdominal pain, nausea, vomiting, status post . HISTORY OF PRESENT ILLNESS: This is a 24-year-old female, who lives at home. Five days ago, she had an treatment. The patient started getting worse, abdominal pain, slight nausea and vomiting, came to [place], diagnosed as above, admitted to medical floor. Currently, calm in bed, slight nausea and vomiting. No complaint. REVIEW OF SYSTEMS: No chest pain. No shortness of breath. Slight nausea and vomiting. No diarrhea. PAST MEDICAL HISTORY: Nothing. PAST SURGICAL HISTORY: five days ago and laparoscopy. ALLERGIES: Penicillin, codeine, and Toradol. MEDICATIONS: Morphine, Zofran, and ceftriaxone. SOCIAL HISTORY: No smoking. No alcohol. No intravenous drug abuse. FAMILY HISTORY: Noncontributory. PHYSICAL EXAMINATION: GENERAL: Calm in bed, oriented x3, in no acute distress. VITAL SIGNS: Temperature is 97 degrees, pulse 92, respirations 19, and blood pressure 124/74. CARDIOVASCULAR: No murmur. RESPIRATORY: Distant and clear. ABDOMEN: Positive bowel sounds. Nontender and nondistended. EXTREMITIES: No cyanosis or edema. NEUROLOGIC: The patient moves all extremities, slightly weak. LABORATORY AND DIAGNOSTIC DATA: Labs at this time show white count 11, otherwise CBC is normal. BMP shows potassium 3.2. Glucose 122. HCG is 376. Urine toxicology is positive for marijuana. Urinalysis shows 2+ leukocyte esterase. ASSESSMENT: 1. UTI. 2. Abdominal pain, nausea and vomiting. 3. Drug abuse, marijuana. PLAN: 1. Regular diet. 2. IV fluids. 3. Pain control. 4. Nausea control. 5. Dietary followup. 6. Antibiotics per Infectious Disease 7. PT and dietary evaluation 8. CBC and BMP in the morning. Flaco Vaughn D.O. DR: SNEHA JOB#: [id number] CC:
[2019-10-16] MEDS ORDERED: Doxycycline Monohydrate 100mg ORAL SCH (14:00)
[2019-10-16] MEDS ORDERED: Clindamycin 600mg 50 ML IV SCH (15:00)
[2019-10-16 16:00] VITALS: BP 110/76
[2019-10-16] MEDS ORDERED: DOXYCYCLINE MO100 MG ORAL (16:14)
[2019-10-16] MEDS ORDERED: methergine PO (16:22)
[2019-10-16] MEDS ORDERED: IBUPROFEN600 M1 ORAL (16:24)
[2019-10-16] MEDS ORDERED: ZOFRAN4 M3 ORAL (16:25)
[2019-10-16] MEDS ORDERED: Docusate 100mg cap ORAL SCH (18:00)
--- NOTE | 2019-10-16 19:30 | Consultation ---
DATE OF CONSULTATION: 10/16/2019 CONSULTING PHYSICIAN: Gonzalez Nguyen MD HISTORY OF PRESENT ILLNESS: This is a 24-year-old female, 2, para 1-0-0-1, who presented to [facility] complaining of lower abdominal pain with passage of clots. Patient is status post surgical termination of at [facility] in [place]. Patient stated that they visualized an injury from and patient had sedation and underwent the procedure without any complications. Patient, however, was not given any postop medications. Patient admits having some lower abdominal discomfort with minimal bleeding at this time. Patient admits having some nausea and vomiting. PAST MEDICAL HISTORY: Significant for asthma. PAST SURGICAL HISTORY: Significant for laparoscopic ovarian cystectomy. ALLERGIES: Patient has no known drug allergies. OBSTETRICAL HISTORY: Significant for full-term normal spontaneous vaginal delivery. GYNECOLOGICAL HISTORY: As above. SOCIAL HISTORY: Noncontributory. FAMILY HISTORY: Noncontributory. PHYSICAL EXAMINATION: VITAL SIGNS: On presentation, vital signs are noted to be stable. CARDIOVASCULAR: Regular rate and rhythm. LUNGS: Clear to auscultation. ABDOMEN: Soft. PELVIC: Patient declined pelvic examination. EXTREMITIES: No cyanosis, edema, or clubbing. LABORATORY AND DIAGNOSTIC DATA: Ultrasound was within normal limits with normal uterus with no evidence of adnexal masses. Patient's white blood cell count is 11. ASSESSMENT: At this time is history of termination of , history of lower abdominal pain as well as vaginal bleeding. At this time, patient is known to be stable. Possibility of patient having ; however due to the fact that patient looks well and has no elevation in white count, patient can be discharged with p.o. medications. I have written the patient for antibiotics as well as analgesia as well as Methergine as well as anti-nausea medication. Patient was given full precaution if any problems to return. In addition, patient was recommended to follow up with [facility] as well as her brand strategy manager. I thank you for this consultation. Gonzalez Nguyen M.D. DR: ANDRA JOB#: [id number] CC:
[2019-10-16] MEDS ORDERED: Miralax 17gm pkt ORAL SCH (21:00)
--- NOTE | 2019-10-17 16:33 | Discharge Summary ---
Discharge Summary Discharge Summary _ DATE OF ADMISSION: 10/16/2019 DATE OF DISCHARGE: 10/16/2019 DISCHARGED BY: Dr Vaughn REASON FOR ADMISSION: 24 years old female with past medical history of asthma presented to emergency department complaining of abdominal pain that started earlier. Pain reported as cramping nonradiating 10 out of 10. Patient also noted vaginal bleeding. Patient stated that she was but no intrauterine was noted on ultrasound. Patient reported that she had an on Monday. She reported fever and chills. No chest pain or shortness of breath. No diarrhea. Upon evaluation patient was afebrile but tachycardic with a heart rate 122 Pulsoxymeter was chronic present on the room air. Laboratory work-up revealed mild leukocytosis 11.2 stable hemoglobin hematocrit and platelet count. Stable and potassium 3.2 otherwise stable electrolytes and renal parameters. Glucose 122. hCG 376. Urinalysis revealed pyuria and moderate bacteria urine test was positive. Urine toxicology screen was positive for marijuana. Patient undergone pelvic ultrasound which revealed no acute finding patient subsequently admitted to medical surgical floor for further management CONSULTANTS: MVA REACTOR OPERATOR HEAD specialist Dr. Nguyen ID specialist Dr. De La Torre GI specialist Dr. Leger [facility] COURSE: Patient admitted to medical surgical floor patient provided with the IV fluids and started on empiric antibiotic as per ID specialist recommendation. CT of the abdomen and pelvis revealed no acute abdominal or pelvic pathology. CBC done few hours later it revealed revealed resolving mild leukocytosis. No fevers. Per ID specialist patient probably have postoperative endometritis given recent on 717. Both imaging did not show any acute findings. Patient also had left ovarian cyst removal 3 months ago. She recommended empiric clindamycin and coccyx clinic discharge patient and after MVA REACTOR OPERATOR HEAD eval and complete the course of antibiotic as outpatient chlamydia and gonorrhea by RNA were done results at the time of this dictation still pending. Potassium was replaced. Globin hematocrit were closely monitored remained stable patient clinically patient clinically stabilized and was ready for discharge home on antibiotic as per ID specialist recommendation MVA REACTOR OPERATOR HEAD specialist and evaluated patient. Per surgery per MVA REACTOR OPERATOR HEAD patient appears to be stable. Patient can be discharged on oral antibiotics and follow- up with MVA REACTOR OPERATOR HEAD as outpatient. Patient also received analgesic and antiemetic patient was recommended to follow-up with the [facility] [facility] as well as her plate shear operator. Due to rapid and unexpected improvement in patient condition patient was discharged in 1 day. 24 years old female FINAL DIAGNOSES: Abdominal pain Recent procedure Probable postop endometritis Asthma Status post left ovarian cyst removal (3 months ago) Possible UTI DISCHARGE MEDICATIONS: See Medication Reconciliation list. DISCHARGE INSTRUCTIONS: Patient was discharged home. Prescription provided. Patient to follow-up with her plate shear operator next week. Patient also to follow-up with the [facility] on advice of contraceptive. I have been assigned to dictate discharge summary for this account. I was not involved in the patient's management. Mikayla Eckert NP Oct 17, 2019 16:33
== END 2019-10-16 17:50 | disposition home or self-care (01) | DRG 463 ==
LOC: EMR 02:28 → 3E 06:32 → EDBEDREQ 06:53
DX: N39.0 Urinary tract infection, site not specified (principal); N71.9 Inflammatory disease of uterus, unspecified; J45.909 Unspecified asthma, uncomplicated; Z88.6 Allergy status to analgesic agent; Z88.0 Allergy status to penicillin; Z98.890 Other specified postprocedural states; F12.10 Cannabis abuse, uncomplicated; N92.0 Excessive and frequent menstruation with regular cycle
CPT/HCPCS: 36415; 74176; 76830; 76856; 80048; 80053; 80307; 81003; 81025; 83690; 84702; 85025; 87086; 87491; 87590; 93005; 96361; 96365; 96375; 96376; 99285; J2405; J7030; J8499; S0077

== ENCOUNTER 2020-01-13 17:23 | Emergency (ER) | payer MEDICAID ==
[~2020-01-13] VITALS: Ht 160 cm; Wt 59.0 kg
[~2020-01-13 17:23] MED LIST changes: +DOXYCYCLINE MO100 MG ORAL; +IBUPROFEN600 M1 ORAL; +ZOFRAN4 M3 ORAL; +methergine PO
--- NOTE | 2020-01-13 17:45 | NUR ---
ED Nurse Note: Pt ambulated to ed c/o upper left abdomen pain x 3-4 days. pt reports nausea but no vomiting. pt denies gastrointestinal hx. urine sent to lab
--- NOTE | 2020-01-13 18:06 | NUR ---
ED Nurse Note: Blood specimen sent to lab
[2020-01-13 18:08] VITALS: BP 124/64
[2020-01-13] MEDS ORDERED: Morphine Sulfate 2mg/ml Inj(IV/IM USE ONLY) IVP ONE ×2 (18:30→20:00)
[2020-01-13 18:36] LABS: EOSINOPHILS % (AUTO) 0.9 % (0.0-3.0); HEMATOCRIT 39.3 % (37.0-47.0); HEMOGLOBIN 12.6 G/DL (12.0-16.0); LYMPHOCYTES % (AUTO) 28.5 % (20.0-45.0); MEAN CORPUSCULAR VOLUME 86 FL (80-99); MONOCYTES % (AUTO) 5.8 % (1.0-10.0); NEUTROPHILS % (AUTO) 63.7 % (45.0-75.0); PLATELET COUNT 364 K/UL (150-450); RED BLOOD COUNT 4.58 M/UL (4.20-5.40); RED CELL DISTRIBUTION WIDTH 13.7 % (11.6-14.8)
[2020-01-13 18:45] LABS: ANION GAP 10 mmol/L (5-15); BLOOD UREA NITROGEN 8 mg/dL (7-18); CALCIUM 8.8 MG/DL (8.5-10.1); CARBON DIOXIDE 22 MMOL/L (21-32); CHLORIDE 104 MMOL/L (98-107); CREATININE 0.7 MG/DL (0.55-1.30); SODIUM 136 MMOL/L (136-145)
[2020-01-13 18:50] LABS: ALANINE AMINOTRANSFERASE 11 U/L (12-78); ALBUMIN 3.8 G/DL (3.4-5.0); ALBUMIN/GLOBULIN RATIO 0.8 (1.0-2.7); ALKALINE PHOSPHATASE 54 U/L (46-116); ASPARTATE AMINO TRANSFERASE 11 U/L (15-37); BILIRUBIN,TOTAL 0.2 MG/DL (0.2-1.0)
--- NOTE | 2020-01-13 19:05 | NUR ---
HAND-OFF: Report given to GERARDO Burns.
--- NOTE | 2020-01-13 19:06 | Diagnostic Imaging Report ---
EXAM: CT Abdomen and Pelvis Without Intravenous Contrast CLINICAL HISTORY: PAIN TECHNIQUE: Axial computed tomography images of the abdomen and pelvis without intravenous contrast. CTDI is 3.6 mGy and DLP is 183.7 mGy-cm. One or more of the following dose reduction techniques were used: automated exposure control, adjustment of the mA and/or kV according to patient size, use of iterative reconstruction technique. Coronal and sagittal reformatted images were created and reviewed. COMPARISON: 10/16/2019 FINDINGS: Limitations: Study limited due to lack of IV contrast. Lung bases: Unremarkable. No mass. No consolidation. ABDOMEN: Liver: Unremarkable. Gallbladder and bile ducts: Unremarkable. No calcified stones. No ductal dilation. Pancreas: Unremarkable. No ductal dilation. Spleen: Unremarkable. No splenomegaly. Adrenals: Unremarkable. No mass. Kidneys and ureters: Unremarkable. No obstructing stones. No hydronephrosis. Stomach and bowel: Unremarkable. No obstruction. No mucosal thickening. PELVIS: Appendix: Normal caliber appendix with dense internal material without additional findings to suggest acute appendicitis. Bladder: Unremarkable. No stones. Reproductive: Unremarkable as visualized. ABDOMEN and PELVIS: Intraperitoneal space: Unremarkable. No free air. No significant fluid collection. Bones/joints: Transitional right L5 anatomy. No acute fracture. No dislocation. Soft tissues: Unremarkable. Vasculature: Unremarkable. No abdominal aortic aneurysm. Lymph nodes: Unremarkable. No enlarged lymph nodes. IMPRESSION: 1. Study limited due to lack of IV contrast. 2. No acute abnormality definitively identified to account for patient presentation. 3. Normal caliber appendix with dense internal material without additional findings to suggest acute appendicitis. 4. Transitional right L5 anatomy. 5. If there is further concern, recommend additional imaging; consider repeating CT with IV contrast.
--- NOTE | 2020-01-13 19:18 | NUR ---
ED Nurse Note: Called lab to f/u with UA, lab will run UA
[2020-01-13 19:22] LABS: APPEARANCE,URINE CLEAR; BILIRUBIN, URINE NEGATIVE (NEGATIVE); COLOR,URINE PALE YELLOW; GLUCOSE, URINE (UA) NEGATIVE (NEGATIVE); KETONES,URINE 1+ (NEGATIVE); LEUKOCYTE ESTERASE ,URINE 1+ (NEGATIVE); NITRITE,URINE NEGATIVE (NEGATIVE); PH,URINE 6.5 (4.5-8.0); PROTEIN,URINE NEGATIVE (NEGATIVE); UROBILINOGEN,URINE NORMAL MG/DL (0.0-1.0)
--- NOTE | 2020-01-13 20:15 | Emergency Room Report ---
History of Present Illness General Chief Complaint: Abdominal Pain Source: Patient Present Illness HPI 24-year-old female with history of ovarian cyst removal x8 months here complaining of 2 days of intermittent left upper quadrant abdominal pain with spasm in the same area reports that 2 days ago had an unknown cookie that might have contained THC. Denies diarrhea, constipation, chest pain, shortness of zeynep ath, headache and dizziness. Also complains of acid reflux and flatulence. Denies any diarrhea, constipation, blood in stool. Complains of nausea however reports that has not been vomiting. Denies any vaginal bleeding or spotting, denies any urinary symptoms. Denies any recent trauma to the abdomen. Denies eating spicy and acidic food. Allergies: Coded Allergies: PENICILLINS (Verified Allergy, Severe, anaphylatic shock, 10/16/19) tolerated Ceftriaxone 10/15/19 KETOROLAC (Verified Allergy, Mild, 12/04/17) pt c/o had rashehs after using. IODINE (Verified Allergy, Unknown, 07/17/17) COVID-19 Screening Contact w/high risk pt: No Recent Travel to affected area: No Experienced COVID-19 symptoms?: No COVID-19 Testing performed WRITER TECHNICAL PUBLICATIONS: No Patient History Past Medical History: see triage record Past Surgical History: none Pertinent Family History: none Last Menstrual Period: on contraeptive Now: No Immunizations: UTD Reviewed Nursing Documentation: PMH: Agreed; PSxH: Agreed Nursing Documentation-PMH Past Medical History: No History, Except For Hx Cardiac Problems: No Hx Hypertension: No Hx Pacemaker: No Hx Asthma: Yes Hx COPD: No Hx Diabetes: No Hx Cancer: No Hx Gastrointestinal Problems: No Hx Dialysis: No Hx Neurological Problems: No Hx Cerebrovascular Accident: No Hx Seizures: No Review of Systems All Other Systems: negative except mentioned in HPI Physical Exam Vital Signs Date Time Temp Pulse Resp B/P (MAP) Pulse Ox O2 Delivery O2 Flow Rate FiO2 01/13/20 17:26 97.9 108 18 124/64 (84) 100 Room Air Sp02 EP Interpretation: reviewed, normal General Appearance: no apparent distress, alert, GCS 15, non-toxic Head: normocephalic, atraumatic Eyes: bilateral eye normal inspection, bilateral eye PERRL ENT: hearing grossly normal, normal pharynx, no angioedema, normal voice Neck: full range of motion, supple/symm/no masses Respiratory: chest non-tender, lungs clear, normal breath sounds, no rhonchi, no respiratory distress, no retraction, speaking full sentences Cardiovascular #1: regular rate, rhythm, no edema, no murmur Cardiovascular #2: 2+ carotid (R), 2+ carotid (L), 2+ radial (R), 2+ radial (L), 2+ dorsalis pedis (R), 2+ dorsalis pedis (L) Gastrointestinal: normal bowel sounds, non tender, soft, non-distended, no guarding, no rebound Rectal: deferred Genitourinary: no CVA tenderness Musculoskeletal: back normal, no calf tenderness Neurologic: alert, motor strength/tone normal, oriented x3, sensory intact, responsive, speech normal Psychiatric: judgement/insight normal, memory normal, mood/affect normal, no suicidal/homicidal ideation Skin: no rash Lymphatic: no adenopathy Medical Decision Making PA Attestation ALL Diagnosis and treatment plan reviewed and discussed with my supervising physician Dr. Garner Diagnostic Impression: Primary Impression: Gastritis Additional Impression: Marijuana abuse ER Course 24-year-old female with history of ovarian cyst removal x8 months here complaining of 2 days of intermittent left upper quadrant abdominal pain with spasm in the same area reports that 2 days ago had an unknown cookie that might have contained THC. Denies diarrhea, constipation, chest pain, shortness of breath, headache and dizziness. Also complains of acid reflux and flatulence. Denies any diarrhea, constipation, blood in stool. Complains of nausea however reports that has not been vomiting. Denies any vaginal bleeding or spotting, denies any urinary symptoms. Denies any recent trauma to the abdomen. Denies eating spicy and acidic food. Ddx considered but are not limited to: appendicitis, cholecystis, gastritis, gastroenteritis, UTI, pyelonephritis, SBO, diverticulitis, postop adhesions, pancreatitis Vital signs: are WNL, pt. is afebrile H&PE are most consistent with: Gastritis, marijuana abuse ORDERS: abdominal CT, abdominal pain set, Protonix, Phenergan, dicyclomine, Tylenol ED INTERVENTIONS: NS bolus, morphine, Zofran, Pepcid DISCHARGE: At this time pt. is stable for d/c to home. Will provide printed patient care instructions, and any necessary prescriptions. Care plan and follow up instructions have been discussed with the patient prior to discharge. Patient take medication as directed, follow-up with primary care provider, referral to assembler filters may be needed to rule out gastric ulcer, H. pylori testing may be needed upon request of primary doctor, if worsening symptoms return to the emergency room CT/MRI/US Diagnostic Results CT/MRI/US Diagnostic Results : Imaging Test Ordered: CT abdomen pelvis with contrast Impression ABDOMEN: Liver: Unremarkable. Gallbladder and bile ducts: Unremarkable. No calcified stones. No ductal dilation. Pancreas: Unremarkable. No ductal dilation. Spleen: Unremarkable. No splenomegaly. Adrenals: Unremarkable. No mass. Kidneys and ureters: Unremarkable. No obstructing stones. No hydronephrosis. Stomach and bowel: Unremarkable. No obstruction. No mucosal thickening. PELVIS: Appendix: Normal caliber appendix with dense internal material without additional findings to suggest acute appendicitis. Bladder: Unremarkable. No stones. Reproductive: Unremarkable as visualized. ABDOMEN and PELVIS: Intraperitoneal space: Unremarkable. No free air. No significant fluid collection. Bones/joints: Transitional right L5 anatomy. No acute fracture. No dislocation. Soft tissues: Unremarkable. Vasculature: Unremarkable. No abdominal aortic aneurysm. Lymph nodes: Unremarkable. No enlarged lymph nodes. IMPRESSION: 1. Study limited due to lack of IV contrast. 2. No acute abnormality definitively identified to account for patient presentation. 3. Normal caliber appendix with dense internal material without additional findings to suggest acute appendicitis. 4. Transitional right L5 anatomy. 5. If there is further concern, recommend additional imaging; consider repeating CT with IV contrast. Last Vital Signs Date Time Temp Pulse Resp B/P (MAP) Pulse Ox O2 Delivery O2 Flow Rate FiO2 01/13/20 18:08 97.9 108 18 124/64 100 Room Air Disposition: HOME, SELF-CARE Condition: Stable Scripts Acetaminophen* (TYLENOL EXTRA STRENGTH*) 500 Mg Tablet 500 MG ORAL Q8H PRN for Prn Headache/Temp > 101, #30 TAB 0 Refills Prov: Yuli Norton 01/13/20 Promethazine Hcl* (PHENERGAN*) 25 Mg Tablet 25 MG ORAL Q6H, #15 TAB 0 Refills Prov: Yuli Norton 01/13/20 Pantoprazole* (PROTONIX*) 40 Mg Tablet.dr 40 MG ORAL DAILY, #30 TAB Prov: Yuli Norton 01/13/20 Dicyclomine Hcl* (DICYCLOMINE HCL*) 10 Mg Capsule 10 MG ORAL QID, #20 CAP Prov: Yuli Norton 01/13/20 Referrals: [facility],REFERRING (PCP) Patient Instructions: Abdominal Pain, Adult, Gastritis, Adult, [id number] Additional Instructions: Take medication as directed, avoid spicy, acidic food, avoid marijuana use, follow-up with your primary doctor for referral to GI doctor for endoscopy and further evaluation due to possibility of gastric versus peptic ulcer. If worsening symptoms return to the emergency room Yuli Norton Jan 13, 2020 20:15
[2020-01-13] MEDS ORDERED: DICYCLOMINE HCL10 MG ORAL (20:17)
[2020-01-13] MEDS ORDERED: PROTONIX40 MG ORAL (20:17)
[2020-01-13] MEDS ORDERED: PHENERGAN25 M1 ORAL (20:17)
[2020-01-13] MEDS ORDERED: TYLENOL EXTRA500 MG ORAL (20:17)
[2020-01-13 20:28] VITALS: BP 124/64
== END 2020-01-13 20:28 | disposition home or self-care (01) ==
LOC: EMR 17:40
DX: K29.70 Gastritis, unspecified, without bleeding (principal); F15.10 Other stimulant abuse, uncomplicated; K21.9 Gastro-esophageal reflux disease without esophagitis; R11.0 Nausea; Z88.0 Allergy status to penicillin; Z91.041 Radiographic dye allergy status
CPT/HCPCS: 36415; 74176; 80053; 80307; 81003; 81025; 83690; 84484; 85025; 96361; 96374; 96375; 96376; G0480; J2270; J2405; J7030; S0028; Z7502; 99284

== ENCOUNTER 2020-03-09 20:25 | Emergency (ER) | payer MEDICAID ==
[~2020-03-09] VITALS: Ht 157.5 cm; Wt 59.0 kg
[~2020-03-09 20:25] MED LIST changes: +DICYCLOMINE HCL10 MG ORAL; +PHENERGAN25 M1 ORAL; +PROTONIX40 MG ORAL
[2020-03-09 20:35] VITALS: BP 127/84
--- NOTE | 2020-03-09 20:35 | NUR ---
ED Nurse Note: Patient walked into ED c/o rash for the past 3 weeks now, patient reports of multiple rashes spreading across her body, denies any changes in diet, reports of using same detergent, reports of no rashes popping however states that it is itchy, patient denies any shortness of breathe, reports of having an allergy test done but all tests came back negative, reports of benadryl and multiple steroids having no effect. states that she recently went to her primary doctor and stating that the doctor did not know what is going on with her thats why she came to ED today.
[2020-03-09] MEDS ORDERED: DiphenhydrAMINE 50mg/ml Inj IVP ONE (20:45)
--- NOTE | 2020-03-09 20:49 | Emergency Room Report ---
History of Present Illness General Chief Complaint: Skin Rash/Abscess Source: Patient Present Illness HPI 24-year-old female with history of various allergies to medication here complaining of 3 weeks of a pruritic rash all over body with purple discoloration with sudden onset of burning sensation at the sites and new lesion. Patient was given prednisone for 10 days by primary doctor however did not improve. 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 Denies any anaphylaxis, chest pain shortness of breath. Denies taking any new medication the past few days other than the steroids. Denies . Denies abdominal pain, nausea vomiting. Reports that she does not drink alcohol, does not smoke tobacco, does not use any drugs. Allergies: Coded Allergies: PENICILLINS (Verified Allergy, Severe, anaphylatic shock, 10/16/19) tolerated Ceftriaxone 10/15/19 KETOROLAC (Verified Allergy, Mild, 12/04/17) pt c/o had rashehs after using. 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 - 03/02/20 COVID-19 Screening: Negative COVID-19 COVID-19 Testing Source: [facility] Patient History Past Medical History: see triage record Past Surgical History: none Pertinent Family History: none Last Menstrual Period: control Now: No Reviewed Nursing Documentation: PMH: Agreed; PSxH: Agreed Nursing Documentation-PMH Past Medical History: No History, Except For Hx Cardiac Problems: No Hx Hypertension: No Hx Pacemaker: No Hx Asthma: Yes Hx COPD: No Hx Diabetes: No Hx Cancer: No Hx Gastrointestinal Problems: No Hx Dialysis: No Hx Neurological Problems: No Hx Cerebrovascular Accident: No Hx Seizures: No Review of Systems All Other Systems: negative except mentioned in HPI Physical Exam Vital Signs Date Time Temp Pulse Resp B/P (MAP) Pulse Ox O2 Delivery O2 Flow Rate FiO2 03/09/20 20:30 98.4 105 18 127/84 (98) 96 Room Air Sp02 EP Interpretation: reviewed, normal General Appearance: no apparent distress, alert, GCS 15, non-toxic Head: normocephalic, atraumatic Eyes: bilateral eye normal inspection, bilateral eye PERRL ENT: hearing grossly normal, normal pharynx, no angioedema, normal voice, other - No anaphylaxis Neck: full range of motion, supple/symm/no masses Respiratory: chest non-tender, lungs clear, normal breath sounds, speaking full sentences Cardiovascular #1: regular rate, rhythm, no edema, no murmur Gastrointestinal: soft Musculoskeletal: back normal, pelvis stable Neurologic: alert, motor strength/tone normal, oriented x3, sensory intact, responsive, speech normal Psychiatric: judgement/insight normal, memory normal, mood/affect normal, no suicidal/homicidal ideation Skin: rash - Maculopapular rash all over body Lymphatic: no adenopathy Medical Decision Making Diagnostic Impression: Primary Impression: Erythema multiforme Additional Impression: Contact eczema ER Course 24-year-old female with history of various allergies to medication here complaining of 3 weeks of a pruritic rash all over body with purple discoloration with sudden onset of burning sensation at the sites and new lesion. Patient was given prednisone for 10 days by primary doctor however did not improve. 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 Denies any anaphylaxis, chest pain shortness of breath. Denies taking any new medication the past few days other than the steroids. Denies . Denies abdominal pain, nausea vomiting. Reports that she does not drink alcohol, does not smoke tobacco, does not use any drugs. Ddx considered but are not limited to: Eczema, scabies, lice, anaphylaxis, erythema multiforme Vital signs: are WNL, pt. is afebrile H&PE are most consistent with: Erythema multiforme ORDERS: prednisone, benadryl, hydrocortisone cream, CBC, CMP, tox screen, UA ED INTERVENTIONS: Dexamethasone, Benadryl DISCHARGE: At this time pt. is stable for d/c to home. Will provide printed patient care instructions, and any necessary prescriptions. Care plan and follow up instructions have been discussed with the patient prior to discharge. Follow-up with sales branch manager, take medication as directed, if worsening symptoms return to the emergency room Last Vital Signs Date Time Temp Pulse Resp B/P (MAP) Pulse Ox O2 Delivery O2 Flow Rate FiO2 03/09/20 20:35 98.4 105 18 127/84 96 Room Air Disposition: HOME, SELF-CARE Condition: Stable Scripts Hydrocortisone Acetate (Hydrocortisone Acetate 2.5% Cream) 453.6 Gm Cream..g. 2 GM TP TID, #455 GM Prov: Yuli Norton 03/09/20 Diphenhydramine HCl (Benadryl) 25 Mg Capsule 25 MG PO TID, #30 CAP Prov: Yuli Norton 03/09/20 Prednisone* (PREDNISONE*) 20 Mg Tablet 40 MG ORAL DAILY for 5 Days, #10 TAB Prov: Yuli Norton 03/09/20 Patient Instructions: Contact Dermatitis, [id number], Erythema Multiforme Additional Instructions: Follow-up with sales branch manager, take medication as directed, if worsening symptoms return to the emergency room Yuli Norton Mar 09, 2020 20:49
[2020-03-09] MEDS ORDERED: HYDROCORTISO453.6 G1 TP (21:05)
[2020-03-09] MEDS ORDERED: PREDNISONE20 MG ORAL (21:05)
[2020-03-09] MEDS ORDERED: BENADRYL25 M3 PO (21:05)
[2020-03-09 21:44] LABS: ANION GAP 11 mmol/L (5-15); BLOOD UREA NITROGEN 10 mg/dL (7-18); CALCIUM 8.7 MG/DL (8.5-10.1); CARBON DIOXIDE 25 MMOL/L (21-32); CHLORIDE 102 MMOL/L (98-107); CREATININE 0.7 MG/DL (0.55-1.30); POTASSIUM 3.2 MMOL/L (3.5-5.1); SODIUM 138 MMOL/L (136-145)
[2020-03-09 21:47] LABS: EOSINOPHILS % (AUTO) 1.7 % (0.0-3.0); HEMATOCRIT 39.1 % (37.0-47.0); HEMOGLOBIN 13.2 G/DL (12.0-16.0); LYMPHOCYTES % (AUTO) 29.8 % (20.0-45.0); MEAN CORPUSCULAR VOLUME 81 FL (80-99); MONOCYTES % (AUTO) 5.8 % (1.0-10.0); NEUTROPHILS % (AUTO) 61.7 % (45.0-75.0); PLATELET COUNT 361 K/UL (150-450); RED BLOOD COUNT 4.82 M/UL (4.20-5.40); WHITE BLOOD COUNT 12.4 K/UL (4.8-10.8)
[2020-03-09 21:49] LABS: APPEARANCE,URINE SLIGHTLY CLOUDY; BILIRUBIN, URINE NEGATIVE (NEGATIVE); COLOR,URINE PALE YELLOW; GLUCOSE, URINE (UA) NEGATIVE (NEGATIVE); KETONES,URINE NEGATIVE (NEGATIVE); LEUKOCYTE ESTERASE ,URINE 1+ (NEGATIVE); NITRITE,URINE NEGATIVE (NEGATIVE); PH,URINE 8 (4.5-8.0); PROTEIN,URINE NEGATIVE (NEGATIVE); UROBILINOGEN,URINE NORMAL MG/DL (0.0-1.0)
[2020-03-09 21:51] LABS: ALANINE AMINOTRANSFERASE 12 U/L (12-78); ALBUMIN 3.6 G/DL (3.4-5.0); ALBUMIN/GLOBULIN RATIO 0.8 (1.0-2.7); ALKALINE PHOSPHATASE 64 U/L (46-116); ASPARTATE AMINO TRANSFERASE 11 U/L (15-37); BILIRUBIN,TOTAL 0.1 MG/DL (0.2-1.0)
[2020-03-09 22:00] VITALS: BP 122/80
== END 2020-03-09 22:00 | disposition home or self-care (01) ==
LOC: EMR 20:50
DX: L51.9 Erythema multiforme, unspecified (principal); L25.9 Unspecified contact dermatitis, unspecified cause; J45.909 Unspecified asthma, uncomplicated; Z88.0 Allergy status to penicillin; Z88.8 Allergy status to other drugs, medicaments and biological substances
CPT/HCPCS: 36415; 80053; 80307; 81003; 81025; 83690; 85025; 96361; 96374; 96375; J1100; J1200; J7030; Z7502; 99284

== ENCOUNTER 2020-03-18 19:28 | Emergency (ER) | payer MEDICAID ==
[~2020-03-18] VITALS: Ht 160 cm; Wt 59.0 kg
[~2020-03-18 19:28] MED LIST changes: +BENADRYL25 M3 PO; +HYDROCORTISO453.6 G1 TP; +PREDNISONE20 MG ORAL
--- NOTE | 2020-03-18 20:48 | Emergency Room Report ---
Physical Exam Vital Signs Date Time Temp Pulse Resp B/P (MAP) Pulse Ox O2 Delivery O2 Flow Rate FiO2 03/18/20 19:28 98.4 105 18 119/71 (87) 98 Room Air Medical Decision Making ER Course Patient left after triage prior to being seen by a provider. Last Vital Signs Date Time Temp Pulse Resp B/P (MAP) Pulse Ox O2 Delivery O2 Flow Rate FiO2 03/18/20 19:28 98.4 105 18 119/71 (87) 98 Room Air Disposition: LEFT W/OUT BEING SEEN Sheridan Stewart M.D. Mar 18, 2020 20:48
[2020-03-18 21:45] VITALS: BP 121/76
--- NOTE | 2020-03-18 21:45 | NUR ---
ED Nurse Note: pt placed in TX1, pt walked into ED from home c/o pelvic pain radiating to lower back pain 10 onset yesterday. Pt reports urine was pink earlier today. Denies, burning or painful urination. Denies fever, n/v/d.
--- NOTE | 2020-03-18 21:49 | NUR ---
ED Nurse Note: urine sent to lab
--- NOTE | 2020-03-18 21:57 | NUR ---
ED Nurse Note: EDMD at bedside assessing pt.
[2020-03-18] MEDS ORDERED: HYDROcodone/Acetamin 5/325 tab ORAL ONE (22:00)
[2020-03-18 22:01] LABS: APPEARANCE,URINE CLEAR; BILIRUBIN, URINE NEGATIVE (NEGATIVE); COLOR,URINE PALE YELLOW; GLUCOSE, URINE (UA) NEGATIVE (NEGATIVE); KETONES,URINE NEGATIVE (NEGATIVE); LEUKOCYTE ESTERASE ,URINE 1+ (NEGATIVE); NITRITE,URINE NEGATIVE (NEGATIVE); PH,URINE 6 (4.5-8.0); PROTEIN,URINE NEGATIVE (NEGATIVE); UROBILINOGEN,URINE NORMAL MG/DL (0.0-1.0)
--- NOTE | 2020-03-18 22:02 | Emergency Room Report ---
History of Present Illness General Chief Complaint: Lower Back Pain or Injury Source: Patient Present Illness HPI This is a 24-year-old female with no past medical history. She presents with chief complaint of left flank pain/back pain. Onset for last 2 days. Started suprapubic yesterday. Pain is sharp in nature. Today is to her left flank. Worse with movement. No fever chills. Denies any urinary complaint. No hematuria. Denies any nausea vomiting. Pain is 9 out of 10. No trauma. Allergies: Coded Allergies: PENICILLINS (Verified Allergy, Severe, anaphylatic shock, 10/16/19) tolerated Ceftriaxone 10/15/19 KETOROLAC (Verified Allergy, Mild, 12/04/17) pt c/o had rashehs after using. 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 COVID-19 Screening: Negative COVID-19 COVID-19 Testing Source: [facility] Patient History Past Medical History: see triage record, old chart reviewed Past Surgical History: none Pertinent Family History: none Social History: Denies: smoking Last Menstrual Period: control Now: No Immunizations: other Reviewed Nursing Documentation: PMH: Agreed; PSxH: Agreed Nursing Documentation-PMH Past Medical History: No History, Except For Hx Cardiac Problems: No Hx Hypertension: No Hx Pacemaker: No Hx Asthma: Yes Hx COPD: No Hx Diabetes: No Hx Cancer: No Hx Gastrointestinal Problems: No Hx Dialysis: No Hx Neurological Problems: No Hx Cerebrovascular Accident: No Hx Seizures: No Review of Systems Eye: Denies: eye pain, blurred vision ENT: Denies: ear pain, nose congestion, throat swelling Respiratory: Denies: cough, shortness of breath Cardiovascular: Denies: chest pain, palpitations Gastrointestinal: Denies: abdominal pain, diarrhea, nausea, vomiting Musculoskeletal: Reports: back pain; Denies: joint pain Skin: Denies: rash Neurological: Denies: headache, numbness Endocrine: Denies: increased thirst, increased urine Hematologic/Lymphatic: Denies: easy bruising All Other Systems: negative except mentioned in HPI Physical Exam Vital Signs Date Time Temp Pulse Resp B/P (MAP) Pulse Ox O2 Delivery O2 Flow Rate FiO2 12/23/20 19:28 98.4 105 18 119/71 (87) 98 Room Air Vitals unremarkable Sp02 EP Interpretation: reviewed, normal General Appearance: well appearing, no apparent distress, alert Head: normocephalic, atraumatic Eyes: bilateral eye PERRL, bilateral eye EOMI ENT: hearing grossly normal, normal pharynx Neck: full range of motion, supple, no meningismus Respiratory: chest non-tender, lungs clear, normal breath sounds Cardiovascular #1: regular rate, rhythm, no murmur Gastrointestinal: normal bowel sounds, no mass, no organomegaly, no bruit, non- distended, tenderness - Diffuse but mostly left lower quadrant Musculoskeletal: back normal, normal range of motion, gait/station normal Psychiatric: mood/affect normal Medical Decision Making Diagnostic Impression: Primary Impression: Pyelonephritis ER Course Patient presents with left flank pain. Urinalysis is positive. CT scan is negative for kidney stone or any other pathology. Will discharge home. CT/MRI/US Diagnostic Results CT/MRI/US Diagnostic Results : Imaging Test Ordered: CT abdomen pelvis Impression Read by radiologist. Negative. Last Vital Signs Date Time Temp Pulse Resp B/P (MAP) Pulse Ox O2 Delivery O2 Flow Rate FiO2 03/18/20 21:45 98.4 68 18 121/76 98 Room Air Status: improved Disposition: HOME, SELF-CARE Condition: Stable Scripts Oxycodone/Acetaminophen 5-325* (PERCOCET 5-325 MG TABLET*) 1 Each Tablet 1 TAB ORAL Q6H PRN for For Pain, #20 TAB Prov: Catarino Epperson MD 03/18/20 Cephalexin* (KEFLEX*) 500 Mg Capsule 500 MG ORAL TID, #30 CAP Prov: Catarino Epperson MD 03/18/20 Referrals: [facility],REFERRING (PCP) Additional Instructions: Follow-up with your doctor in 7 days. Return if symptoms worsen. Catarino Epperson MD Mar 18, 2020 22:02
--- NOTE | 2020-03-18 22:22 | NUR ---
ED Nurse Note: pt went down to CT via w/c accompanied by CT staff
[2020-03-18] MEDS ORDERED: Cephalexin 500mg cap ORAL ONE (22:30)
--- NOTE | 2020-03-18 22:39 | Diagnostic Imaging Report ---
EXAM: CT Abdomen and Pelvis Without Intravenous Contrast CLINICAL HISTORY: ABD PAIN TECHNIQUE: Axial computed tomography images of the abdomen and pelvis without intravenous contrast. CTDI is 3.8 mGy and DLP is 179.8 mGy-cm. One or more of the following dose reduction techniques were used: automated exposure control, adjustment of the mA and/or kV according to patient size, use of iterative reconstruction technique. Coronal and sagittal reformatted images were created and reviewed. COMPARISON: 01/13/20 FINDINGS: Limitations: Study limited due to lack of IV contrast. Lung bases: Unremarkable. No mass. No consolidation. ABDOMEN: Liver: Unremarkable. Gallbladder and bile ducts: Unremarkable. No calcified stones. No ductal dilation. Pancreas: Unremarkable. No ductal dilation. Spleen: Unremarkable. No splenomegaly. Adrenals: Unremarkable. No mass. Kidneys and ureters: Unremarkable. No obstructing stones. No hydronephrosis. Stomach and bowel: Unremarkable. No obstruction. No mucosal thickening. PELVIS: Appendix: Normal appendix. Bladder: Unremarkable. No stones. Reproductive: Unremarkable as visualized. ABDOMEN and PELVIS: Intraperitoneal space: Unremarkable. No free air. No significant fluid collection. Bones/joints: Right L5 transitional anatomy. No acute fracture. No dislocation. Soft tissues: Unremarkable. Vasculature: Unremarkable. No abdominal aortic aneurysm. Lymph nodes: Unremarkable. No enlarged lymph nodes. IMPRESSION: 1. Study limited due to lack of IV contrast. 2. Normal appendix. 3. No acute abnormality seen to account for patient presentation. 4. Right L5 transitional anatomy.
[2020-03-18] MEDS ORDERED: CEPHALEXIN500 MG ORAL (22:45)
[2020-03-18] MEDS ORDERED: PERCOCET 5-3251 EACH ORAL (22:45)
[2020-03-18 22:50] VITALS: BP 115/70
--- NOTE | 2020-03-18 22:50 | NUR ---
ER DISCHARGE NOTE: Patient is cleared to be discharged per ERMD, pt is aox4, on room air, with stable vital signs. pt was given dc and paper prescription instructions, pt was able to verbalize understanding, pt id band without complications. pt is able to ambulate with steady gait. pt took all belongings.
== END 2020-03-18 22:50 | disposition home or self-care (01) ==
LOC: EMR 21:04
DX: N12 Tubulo-interstitial nephritis, not specified as acute or chronic (principal); J45.909 Unspecified asthma, uncomplicated; Z79.899 Other long term (current) drug therapy; Z88.0 Allergy status to penicillin; Z88.8 Allergy status to other drugs, medicaments and biological substances
CPT/HCPCS: 74176; 80307; 81003; 81025; 87086; Z7502; 99284

== ENCOUNTER 2020-04-15 17:42 | Emergency (ER) | payer MEDICAID ==
[~2020-04-15] VITALS: Ht 160 cm; Wt 59.0 kg
[~2020-04-15 17:42] MED LIST changes: +CEPHALEXIN500 MG ORAL; +FAMOTIDINE20 MG ORAL; +PERCOCET 5-3251 EACH ORAL; +PHENAZOPYRIDIN200 MG ORAL
[2020-04-15 17:50] VITALS: BP 125/83
--- NOTE | 2020-04-15 17:50 | NUR ---
ED Nurse Note: Pt walked in to Ed from home c/o persistent pelvic pain since Monday. Pt was seen here for UTi last week and was dc with antibiotics. Denies fever/ chills. AAOx4, no SOB. ERMD at bedside.
--- NOTE | 2020-04-15 17:55 | NUR ---
ED Nurse Note: Blood and urine sent to lab.
--- NOTE | 2020-04-15 18:00 | NUR ---
ED Nurse Note: Pt refused Covid test.
[2020-04-15 18:31] LABS: BASOPHILS % (AUTO) 1.1 % (0.0-2.0); EOSINOPHILS % (AUTO) 2.1 % (0.0-3.0); HEMATOCRIT 42.2 % (37.0-47.0); HEMOGLOBIN 12.9 G/DL (12.0-16.0); LYMPHOCYTES % (AUTO) 32.4 % (20.0-45.0); MEAN CORPUSCULAR VOLUME 87 FL (80-99); MONOCYTES % (AUTO) 7.1 % (1.0-10.0); NEUTROPHILS % (AUTO) 57.2 % (45.0-75.0); PLATELET COUNT 386 K/UL (150-450); RED BLOOD COUNT 4.87 M/UL (4.20-5.40); RED CELL DISTRIBUTION WIDTH 15.3 % (11.6-14.8); WHITE BLOOD COUNT 9.2 K/UL (4.8-10.8)
[2020-04-15 18:32] LABS: APPEARANCE,URINE SLIGHTLY CLOUDY; BILIRUBIN, URINE 1+ (NEGATIVE); GLUCOSE, URINE (UA) NEGATIVE (NEGATIVE); KETONES,URINE NEGATIVE (NEGATIVE); LEUKOCYTE ESTERASE ,URINE 2+ (NEGATIVE); NITRITE,URINE POSITIVE (NEGATIVE); PH,URINE 7 (4.5-8.0); PROTEIN,URINE NEGATIVE (NEGATIVE); UROBILINOGEN,URINE 1 MG/DL (0.0-1.0)
[2020-04-15 18:33] LABS: COLOR,URINE YELLOW
[2020-04-15] MEDS ORDERED: cefTRIAXone 1 GM in NS 55 ML IVPB ONE (18:45)
[2020-04-15 18:51] LABS: ANION GAP 11 mmol/L (5-15); BLOOD UREA NITROGEN 7 mg/dL (7-18); CARBON DIOXIDE 23 MMOL/L (21-32); CHLORIDE 103 MMOL/L (98-107); CREATININE 0.7 MG/DL (0.55-1.30); POTASSIUM 3.3 MMOL/L (3.5-5.1); SODIUM 137 MMOL/L (136-145)
[2020-04-15 18:56] LABS: ALANINE AMINOTRANSFERASE 11 U/L (12-78); ALBUMIN 3.9 G/DL (3.4-5.0); ALBUMIN/GLOBULIN RATIO 0.9 (1.0-2.7); ALKALINE PHOSPHATASE 55 U/L (46-116); ASPARTATE AMINO TRANSFERASE 15 U/L (15-37); BILIRUBIN,TOTAL 0.1 MG/DL (0.2-1.0)
[2020-04-15] MEDS ORDERED: Morphine Sulfate 4mg/ml Inj (IV USE ONLY) IVP ONE (19:00)
--- NOTE | 2020-04-15 19:02 | NUR ---
ED Nurse Note: Pt was taken to CT via wc.
--- NOTE | 2020-04-15 19:10 | NUR ---
HAND-OFF: Report given to Katy CARRILLO.
--- NOTE | 2020-04-15 19:11 | NUR ---
ED Nurse Note: Pt back from CT in stable condition. Now laying in bed, AAOx4. No complaints from pt at the moment.
--- NOTE | 2020-04-15 19:34 | Diagnostic Imaging Report ---
EXAM: CT Abdomen and Pelvis Without Intravenous Contrast CLINICAL HISTORY: PAIN TECHNIQUE: Axial computed tomography images of the abdomen and pelvis without intravenous contrast. CTDI is 3.70 mGy and DLP is 189.00 mGy-cm. One or more of the following dose reduction techniques were used: automated exposure control, adjustment of the mA and/or kV according to patient size, use of iterative reconstruction technique. COMPARISON: No relevant prior studies available. FINDINGS: Lung bases: Unremarkable. ABDOMEN: Liver: Unremarkable Gallbladder and bile ducts: No calcified stones. No ductal dilation. Pancreas: Unremarkable. Spleen: Unremarkable. Adrenals: Unremarkable. Kidneys and ureters: No renal calculi or obstructive changes. Stomach and bowel: No erum mural thickening. Nonobstructive bowel gas pattern. PELVIS: Appendix: Small visualized segments of the appendix are unremarkable. Bladder: Unremarkable. Reproductive: Unremarkable. ABDOMEN and PELVIS: Intraperitoneal space: Unremarkable. Bones/joints: No acute fracture. Soft tissues: Unremarkable. Vasculature: Unremarkable. No abdominal aortic aneurysm. Lymph nodes: No enlarged lymph nodes. IMPRESSION: No acute process.
--- NOTE | 2020-04-15 20:11 | Emergency Room Report ---
History of Present Illness General Chief Complaint: Pelvic Pain Source: Patient Present Illness HPI This patient states that for the past 4 days she has had pain in the supra-pubic region. She was seen here at [facility] on Monday, 4 days ago, and diagnosed with a urinary tract infection. She has been on Macrobid, Pyridium and [place] that was given to her at that time. She states that her symptoms continue. She continues to have pain. She states she is also had nausea. She denies vomiting. She denies diarrhea. She denies dysuria or hematuria. She denies fever or chills. She states that her last menses was the fourth of this month and was normal. She states that she is sexually active with the same partner for the past 2 years and has no suspicion or concerns about sexually transmitted infection. Allergies: Coded Allergies: PENICILLINS (Verified Allergy, Severe, anaphylatic shock, 10/16/19) tolerated Ceftriaxone 10/15/19 KETOROLAC (Verified Allergy, Mild, 12/04/17) pt c/o had rashehs after using. 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 COVID-19 Screening: Negative COVID-19 COVID-19 Testing Source: last week Patient History Past Medical History: see triage record, asthma Social History: Denies: smoking, alcohol use, drug use Last Menstrual Period: 03/30/20 Now: No Reviewed Nursing Documentation: PMH: Agreed; PSxH: Agreed Nursing Documentation-PMH Past Medical History: No Stated History Hx Cardiac Problems: No Hx Hypertension: No Hx Pacemaker: No Hx Asthma: Yes Hx COPD: No Hx Diabetes: No Hx Cancer: No Hx Gastrointestinal Problems: No Hx Dialysis: No Hx Neurological Problems: No Hx Cerebrovascular Accident: No Hx Seizures: No Review of Systems All Other Systems: negative except mentioned in HPI Physical Exam Vital Signs Date Time Temp Pulse Resp B/P (MAP) Pulse Ox O2 Delivery O2 Flow Rate FiO2 04/15/20 17:47 97.9 105 15 125/83 (97) 94 Room Air Sp02 EP Interpretation: reviewed, normal General Appearance: no apparent distress, alert, GCS 15, non-toxic Head: normocephalic, atraumatic Eyes: bilateral eye normal inspection, bilateral eye PERRL ENT: hearing grossly normal, normal pharynx, no angioedema, normal voice Neck: full range of motion, supple/symm/no masses Respiratory: no respiratory distress, no retraction, no accessory muscle use, speaking full sentences Cardiovascular #1: regular rate, rhythm, no edema Gastrointestinal: normal bowel sounds, soft, non-distended, no guarding, no rebound, tenderness - TTP mid supra-pubic region over bladder. Rectal: deferred Musculoskeletal: back normal, normal range of motion, gait/station normal, non- tender Neurologic: alert, motor strength/tone normal, oriented x3, sensory intact, responsive, speech normal Psychiatric: judgement/insight normal, memory normal, mood/affect normal, no suicidal/homicidal ideation Skin: no rash, normal color Medical Decision Making Diagnostic Impression: Primary Impression: UTI (urinary tract infection) ER Course Patient has a clinical presentation consistent with simple UTI. There are no systemic symptoms to include fever, chills, sweating, nausea or vomiting that would make me concerned for pyelonephritis. Overall this patient's evaluation is benign. Given the tenderness to palpation and that the patient had been previously seen 4 days ago, I did obtain a CT of the abdomen and pelvis to assess for urolithiasis. This CT was unremarkable. Patient is stable for outpatient oral antibiotic therapy. I will change the patient's antibiotic from Macrobid to Bactrim DS. The patient was instructed that she will need to get a follow-up urinalysis in the next 48 to 72 hours to see if her urinary tract infection is responding to treatment. She is also given very close return precautions to include fever or vomiting. At this time, the patient is well- appearing and nontoxic. The patient was given close return precautions and followup instructions. The patient declined Covid testing stating that she has had 2 - Covid test in the month. This patient was evaluated in the context of the global COVID-19 pandemic, which necessitated consideration that the patient might be at risk for infection with the [id number] virus that causes COVID-19. Institutional protocols and algorithms that pertain to the evaluation of patients at risk for COVID-19 and the state of rapid change based on information released by multiple regulatory bodies including the CDC and federal and state organizations. These policies and algorithms were followed during the patient's care in the ED. Laboratory Tests Test 04/15/20 17:55 04/15/20 18:05 Urine Color Yellow Urine Appearance Slightly cloudy Urine pH 7 (4.5-8.0) Urine Specific [place] 1.010 (1.005-1.035) Urine Protein Negative (NEGATIVE) Urine Glucose (UA) Negative (NEGATIVE) Urine Ketones Negative (NEGATIVE) Urine Blood 3+ (NEGATIVE) H Urine Nitrite Positive (NEGATIVE) H Urine Bilirubin 1+ (NEGATIVE) H Urine Ictotest Negative (NEGATIVE) Urine Urobilinogen 1 MG/DL (0.0-1.0) H Urine Leukocyte Esterase 2+ (NEGATIVE) H Urine RBC 10-15 /HPF (0 - 2) H Urine WBC 15-20 /HPF (0 - 2) H Urine Squamous Epithelial Cells Many /LPF (NONE/OCC) H Urine Bacteria Many /HPF (NONE) H Urine HCG, Qualitative Negative (NEGATIVE) White Blood Count 9.2 K/UL (4.8-10.8) Red Blood Count 4.87 M/UL (4.20-5.40) Hemoglobin 12.9 G/DL (12.0-16.0) Hematocrit 42.2 % (37.0-47.0) Mean Corpuscular Volume 87 FL (80-99) Mean Corpuscular Hemoglobin 26.5 PG (27.0-31.0) L Mean Corpuscular Hemoglobin Concent 30.6 G/DL (32.0-36.0) L Red Cell Distribution Width 15.3 % (11.6-14.8) H Platelet Count 386 K/UL (150-450) Mean Platelet Volume 8.3 FL (6.5-10.1) Neutrophils (%) (Auto) 57.2 % (45.0-75.0) Lymphocytes (%) (Auto) 32.4 % (20.0-45.0) Monocytes (%) (Auto) 7.1 % (1.0-10.0) Eosinophils (%) (Auto) 2.1 % (0.0-3.0) Basophils (%) (Auto) 1.1 % (0.0-2.0) Sodium Level 137 MMOL/L (136-145) Potassium Level 3.3 MMOL/L (3.5-5.1) L Chloride Level 103 MMOL/L (98-107) Carbon Dioxide Level 23 MMOL/L (21-32) Anion Gap 11 mmol/L (5-15) Blood Urea Nitrogen 7 mg/dL (7-18) Creatinine 0.7 MG/DL (0.55-1.30) Estimated Glomerular Filtration Rate > 60 mL/min (>60) Glucose Level 105 MG/DL (74-106) Calcium Level 9.0 MG/DL (8.5-10.1) Total Bilirubin 0.1 MG/DL (0.2-1.0) L Aspartate Amino Transferase (AST) 15 U/L (15-37) Alanine Aminotransferase (ALT) 11 U/L (12-78) L Alkaline Phosphatase 55 U/L (46-116) Total Protein 8.3 G/DL (6.4-8.2) H Albumin 3.9 G/DL (3.4-5.0) Globulin 4.4 g/dL Albumin/Globulin Ratio 0.9 (1.0-2.7) L CT/MRI/US Diagnostic Results CT/MRI/US Diagnostic Results : Imaging Test Ordered: CT abd/pelvis Impression No acute findings. See official report in electronic medical record. Last Vital Signs Date Time Temp Pulse Resp B/P (MAP) Pulse Ox O2 Delivery O2 Flow Rate FiO2 04/15/20 17:50 97.9 105 15 125/83 94 Room Air Status: improved Disposition: HOME, SELF-CARE Condition: Improved Referrals: [facility]ERR[facility] (PCP) Adelina Hurtado DO Apr 15, 2020 20:10
--- NOTE | 2020-04-15 20:11 | NUR ---
ED Nurse Note: Pt walked to restroom. No complaints from pt at the moment. Waiting for EDMD to review CT.
[2020-04-15] MEDS ORDERED: HYDROCODON-ACE1 EA15 ORAL (20:20)
[2020-04-15] MEDS ORDERED: BACTRIM DS TAB1 EAC1 ORAL (20:20)
[2020-04-15 20:25] VITALS: BP 116/81
== END 2020-04-15 20:25 | disposition home or self-care (01) ==
LOC: EMR 18:00
DX: N39.0 Urinary tract infection, site not specified (principal); J45.909 Unspecified asthma, uncomplicated; Z88.0 Allergy status to penicillin; Z88.8 Allergy status to other drugs, medicaments and biological substances
CPT/HCPCS: 36415; 74176; 80053; 81003; 81025; 85025; 87086; 96361; 96365; 96375; J0696; J2270; Z7502; 99284

== ENCOUNTER 2020-04-20 08:04 | Emergency (ER) | payer MEDICAID ==
[~2020-04-20] VITALS: Ht 160 cm; Wt 59.0 kg
--- NOTE | 2020-04-20 08:33 | Emergency Room Report ---
History of Present Illness General Chief Complaint: To Be Triaged Source: Patient Present Illness HPI This patient had presented to the emergency department multiple times in the past 8 months. She presents today for upper abdominal "cramping" and vomiting. She states she has vomited about 3 times. She states his symptoms started yesterday evening after dinner. She denies diarrhea. She denies dysuria or hematuria. She denies fever or chills. She denies cough or congestion. She denies chest pain or shortness of breath. She states that the urinary tract infection that I had given her antibiotics for 5 days ago has resolved. She has continued to take the Bactrim DS. She has been treated multiple times for urinary tract infections/pyelonephritis. Each time she is seen she denies that she can have a sexually transmitted infection and declines STI treatment. I saw this patient 5 days ago for suprapubic pain and urinary pressure. She underwent CT of the abdomen and pelvis at that time which was negative. I changed her from the Macrobid that she had been taking to Bactrim DS. I reviewed the urine culture from 5 days ago and there was minimal growth of mixed organisms. Allergies: Coded Allergies: PENICILLINS (Verified Allergy, Severe, anaphylatic shock, 10/16/19) tolerated Ceftriaxone 10/15/19 KETOROLAC (Verified Allergy, Mild, 12/04/17) pt c/o had rashehs after using. IODINE (Verified Allergy, Unknown, 07/17/17) COVID-19 Screening Contact w/high risk pt: No Recent Travel to affected area: No Experienced COVID-19 symptoms?: No Patient History Past Medical History: asthma Past Surgical History: none Pertinent Family History: none Social History: Denies: smoking, alcohol use, drug use Reviewed Nursing Documentation: PMH: Agreed; PSxH: Agreed Nursing Documentation-PMH Hx Cardiac Problems: No Hx Hypertension: No Hx Pacemaker: No Hx Asthma: Yes Hx COPD: No Hx Diabetes: No Hx Cancer: No Hx Gastrointestinal Problems: No Hx Dialysis: No Hx Neurological Problems: No Hx Cerebrovascular Accident: No Hx Seizures: No Review of Systems All Other Systems: negative except mentioned in HPI Physical Exam Sp02 EP Interpretation: reviewed, normal General Appearance: no apparent distress, alert, GCS 15, non-toxic Head: normocephalic, atraumatic Eyes: bilateral eye normal inspection, bilateral eye PERRL ENT: hearing grossly normal, normal pharynx, no angioedema, normal voice Neck: normal inspection, full range of motion Respiratory: no respiratory distress, no retraction, no accessory muscle use, speaking full sentences Cardiovascular #1: regular rate, rhythm, no edema Gastrointestinal: normal bowel sounds, soft, non-distended, no guarding, no rebound, tenderness - TTP in the epigastrium and upper abdomen Rectal: deferred Musculoskeletal: back normal, normal range of motion, gait/station normal, non- tender Neurologic: alert, motor strength/tone normal, oriented x3, sensory intact, responsive, speech normal Psychiatric: judgement/insight normal, memory normal, mood/affect normal, no suicidal/homicidal ideation Skin: no rash, normal color Medical Decision Making Diagnostic Impression: Primary Impression: Gastritis ER Course This patient has a clinical presentation consistent with gastritis. The location of the pain and history and physical examination is consistent with this. I considered other concerning differentials, to include appendicitis, cholelithiasis, cholecystitis, pancreatitis, perforated viscus, aortic aneurysm, and pyelonephritis to name a few. However, laboratory workup in combination with medical and surgical history and physical exam makes these unlikely at this time. The patient is finishing up her Bactrim DS. The patient's urinalysis today is contaminated and given the urine culture that was negative from her last visit, I will not pursue any change or further antibiotics. Patient was given IV fluids and IV Zofran. I will give the patient treatment for gastritis. At this time, I did not identify an emergency medical condition. I did educate the patient on close return precautions and followup instructions. Laboratory Tests Test 04/20/20 09:05 White Blood Count 11.0 K/UL (4.8-10.8) H Red Blood Count 5.08 M/UL (4.20-5.40) Hemoglobin 13.7 G/DL (12.0-16.0) Hematocrit 43.8 % (37.0-47.0) Mean Corpuscular Volume 86 FL (80-99) Mean Corpuscular Hemoglobin 27.0 PG (27.0-31.0) Mean Corpuscular Hemoglobin Concent 31.2 G/DL (32.0-36.0) L Red Cell Distribution Width 15.6 % (11.6-14.8) H Platelet Count 375 K/UL (150-450) Mean Platelet Volume 8.1 FL (6.5-10.1) Neutrophils (%) (Auto) 71.0 % (45.0-75.0) Lymphocytes (%) (Auto) 22.5 % (20.0-45.0) Monocytes (%) (Auto) 4.8 % (1.0-10.0) Eosinophils (%) (Auto) 1.0 % (0.0-3.0) Basophils (%) (Auto) 0.8 % (0.0-2.0) Urine Color Yellow Urine Appearance Slightly cloudy Urine pH 6 (4.5-8.0) Urine Specific [place] 1.020 (1.005-1.035) Urine Protein 2+ (NEGATIVE) H Urine Glucose (UA) Negative (NEGATIVE) Urine Ketones 1+ (NEGATIVE) H Urine Blood 3+ (NEGATIVE) H Urine Nitrite Negative (NEGATIVE) Urine Bilirubin Negative (NEGATIVE) Urine Urobilinogen Normal MG/DL (0.0-1.0) Urine Leukocyte Esterase 1+ (NEGATIVE) H Urine RBC 5-10 /HPF (0 - 2) H Urine WBC 10-15 /HPF (0 - 2) H Urine Squamous Epithelial Cells Moderate /LPF (NONE/OCC) H Urine Bacteria Moderate /HPF (NONE) H Urine HCG, Qualitative Negative (NEGATIVE) Sodium Level 137 MMOL/L (136-145) Potassium Level 3.7 MMOL/L (3.5-5.1) Chloride Level 102 MMOL/L (98-107) Carbon Dioxide Level 20 MMOL/L (21-32) L Anion Gap 15 mmol/L (5-15) Blood Urea Nitrogen 8 mg/dL (7-18) Creatinine 0.7 MG/DL (0.55-1.30) Estimated Glomerular Filtration Rate > 60 mL/min (>60) Glucose Level 94 MG/DL (74-106) Calcium Level 9.2 MG/DL (8.5-10.1) Total Bilirubin 0.1 MG/DL (0.2-1.0) L Aspartate Amino Transferase (AST) 17 U/L (15-37) Alanine Aminotransferase (ALT) 13 U/L (12-78) Alkaline Phosphatase 54 U/L (46-116) Total Protein 8.7 G/DL (6.4-8.2) H Albumin 4.1 G/DL (3.4-5.0) Globulin 4.6 g/dL Albumin/Globulin Ratio 0.9 (1.0-2.7) L Lipase 233 U/L (73-393) Urine Opiates Screen Positive (NEGATIVE) H Urine Barbiturates Screen Negative (NEGATIVE) Phencyclidine (PCP) Screen Negative (NEGATIVE) Urine Amphetamines Screen Negative (NEGATIVE) Urine Benzodiazepines Screen Negative (NEGATIVE) Urine Cocaine Screen Negative (NEGATIVE) Urine Marijuana (THC) Screen Negative (NEGATIVE) Status: improved Disposition: HOME, SELF-CARE Condition: Improved Adelina Hurtado DO Apr 20, 2020 08:33
[2020-04-20 08:46] VITALS: BP 110/73
--- NOTE | 2020-04-20 08:53 | NUR ---
ED Nurse Note: Patient from home and walked in due to abd cramping with N/V since yesterday. LMP on 04/02/20. Pt is AAO x4, ambulatory with non labored breathing.
[2020-04-20 09:21] LABS: BASOPHILS % (AUTO) 0.8 % (0.0-2.0); HEMATOCRIT 43.8 % (37.0-47.0); HEMOGLOBIN 13.7 G/DL (12.0-16.0); LYMPHOCYTES % (AUTO) 22.5 % (20.0-45.0); MEAN CORPUSCULAR VOLUME 86 FL (80-99); MONOCYTES % (AUTO) 4.8 % (1.0-10.0); PLATELET COUNT 375 K/UL (150-450); RED BLOOD COUNT 5.08 M/UL (4.20-5.40); RED CELL DISTRIBUTION WIDTH 15.6 % (11.6-14.8)
[2020-04-20 09:22] LABS: APPEARANCE,URINE SLIGHTLY CLOUDY; BILIRUBIN, URINE NEGATIVE (NEGATIVE); GLUCOSE, URINE (UA) NEGATIVE (NEGATIVE); KETONES,URINE 1+ (NEGATIVE); LEUKOCYTE ESTERASE ,URINE 1+ (NEGATIVE); NITRITE,URINE NEGATIVE (NEGATIVE); PH,URINE 6 (4.5-8.0); PROTEIN,URINE 2+ (NEGATIVE); UROBILINOGEN,URINE NORMAL MG/DL (0.0-1.0)
[2020-04-20 09:34] LABS: ANION GAP 15 mmol/L (5-15); BLOOD UREA NITROGEN 8 mg/dL (7-18); CALCIUM 9.2 MG/DL (8.5-10.1); CARBON DIOXIDE 20 MMOL/L (21-32); CHLORIDE 102 MMOL/L (98-107); CREATININE 0.7 MG/DL (0.55-1.30); POTASSIUM 3.7 MMOL/L (3.5-5.1); SODIUM 137 MMOL/L (136-145)
[2020-04-20 09:35] LABS: COLOR,URINE YELLOW
[2020-04-20 09:39] LABS: ALANINE AMINOTRANSFERASE 13 U/L (12-78); ALBUMIN 4.1 G/DL (3.4-5.0); ALBUMIN/GLOBULIN RATIO 0.9 (1.0-2.7); ALKALINE PHOSPHATASE 54 U/L (46-116); ASPARTATE AMINO TRANSFERASE 17 U/L (15-37); BILIRUBIN,TOTAL 0.1 MG/DL (0.2-1.0)
[2020-04-20] MEDS ORDERED: Lidocaine 2% Visc 15ml soln ORAL ONE (10:45)
[2020-04-20] MEDS ORDERED: MYLANTA MAXIMU355 ML PO (10:48)
[2020-04-20] MEDS ORDERED: RANITIDINE HCL150 MG ORAL (10:48)
[2020-04-20] MEDS ORDERED: ZOFRAN ODT8 MG ORAL (10:48)
[2020-04-20 10:57] VITALS: BP 118/70
== END 2020-04-20 10:57 | disposition home or self-care (01) ==
LOC: EMR 08:55
DX: K29.70 Gastritis, unspecified, without bleeding (principal); Z88.0 Allergy status to penicillin; Z91.041 Radiographic dye allergy status
CPT/HCPCS: 36415; 80053; 80307; 81003; 81025; 83690; 85025; 87086; 96361; 96374; 96375; J2405; J7030; S0028; Z7502; 99284

== ENCOUNTER 2020-05-28 23:33 | Emergency (ER) | payer MEDICAID ==
[~2020-05-28] VITALS: Ht 160 cm; Wt 59.0 kg
[~2020-05-28 23:33] MED LIST changes: +MYLANTA MAXIMU355 ML PO; +RANITIDINE HCL150 MG ORAL; +ZOFRAN ODT8 MG ORAL
[2020-05-29] MEDS ORDERED: CLINDAMYCIN HC300 MG ORAL (00:20)
[2020-05-29] MEDS ORDERED: HYDROCODON-ACE1 EA15 ORAL (00:20)
--- NOTE | 2020-05-29 00:20 | Emergency Room Report ---
History of Present Illness General Chief Complaint: Toothache Source: Patient Present Illness HPI This is a 24-year-old female with no past medical history she presents with chief plaint of dental pain. She went in for routine cleaning up today and was told she needed a root canal. During the root canal the other tooth broke and was had to be extracted. She was sent home on Motrin. Now she complains of se kong pain. Pain is 10 out of 10. Sharp in nature. She has some chills and nausea because of the pain. Denies any other complaint. Nothing made it better. Nothing made it worse. Allergies: Coded Allergies: PENICILLINS (Verified Allergy, Severe, anaphylatic shock, 10/16/19) tolerated Ceftriaxone 10/15/19 KETOROLAC (Verified Allergy, Mild, 12/04/17) pt c/o had rashehs after using. IODINE (Verified Allergy, Unknown, 07/17/17) COVID-19 Screening Contact w/high risk pt: No Recent Travel to affected area: No Experienced COVID-19 symptoms?: No COVID-19 Testing performed SHAPER HAND: No COVID-19 Screening: Negative COVID-19 COVID-19 Testing Source: nasal Patient History Past Medical History: see triage record, old chart reviewed Past Surgical History: none Pertinent Family History: none Social History: Denies: smoking Last Menstrual Period: none Now: No Immunizations: other Reviewed Nursing Documentation: PMH: Agreed; PSxH: Agreed Nursing Documentation-PMH Hx Cardiac Problems: No Hx Hypertension: No Hx Pacemaker: No Hx Asthma: Yes Hx COPD: No Hx Diabetes: No Hx Cancer: No Hx Gastrointestinal Problems: No Hx Dialysis: No Hx Neurological Problems: No Hx Cerebrovascular Accident: No Hx Seizures: No Review of Systems Eye: Denies: eye pain, blurred vision ENT: Denies: ear pain, nose congestion, throat swelling Respiratory: Denies: cough, shortness of breath Cardiovascular: Denies: chest pain, palpitations Gastrointestinal: Denies: abdominal pain, diarrhea, nausea, vomiting Musculoskeletal: Denies: back pain, joint pain Skin: Denies: rash Neurological: Denies: headache, numbness Endocrine: Denies: increased thirst, increased urine Hematologic/Lymphatic: Denies: easy bruising All Other Systems: negative except mentioned in HPI Physical Exam Vital Signs Date Time Temp Pulse Resp B/P (MAP) Pulse Ox O2 Delivery O2 Flow Rate FiO2 05/29/20 00:03 98.2 103 20 140/93 (109) 96 Room Air Vitals unremarkable Sp02 EP Interpretation: reviewed, normal General Appearance: well appearing, no apparent distress, alert Head: normocephalic, atraumatic Eyes: bilateral eye PERRL, bilateral eye EOMI ENT: hearing grossly normal, normal pharynx, other - Her dental procedure was on the right lower jaw. There is no active bleeding. No trismus. Neck: full range of motion, supple, no meningismus Respiratory: chest non-tender, lungs clear, normal breath sounds Cardiovascular #1: regular rate, rhythm, no murmur Gastrointestinal: normal bowel sounds, non tender, no mass, no organomegaly, no bruit, non-distended Musculoskeletal: back normal, normal range of motion, gait/station normal Psychiatric: mood/affect normal Medical Decision Making Diagnostic Impression: Primary Impression: Toothache ER Course Patient with postoperative pain from tooth extraction. We will put her on antibiotics to decrease risk of infection. No evidence of any abscess seen. Will discharge home. Last Vital Signs Date Time Temp Pulse Resp B/P (MAP) Pulse Ox O2 Delivery O2 Flow Rate FiO2 05/29/20 00:03 98.2 103 20 140/93 (109) 96 Room Air Status: improved Disposition: HOME, SELF-CARE Condition: Stable Scripts Clindamycin Hcl (CLINDAMYCIN HCL) 300 Mg Capsule 300 MG ORAL THREE TIMES A DAY, #21 CAP Prov: Catarino Epperson MD 05/29/20 Hydrocodone/Acetaminophen 5-325* (HYDROCODONE/ACETAMINOPHEN 5-325*) 1 Each Tablet 1 TAB ORAL Q6H PRN for For Pain, #20 TAB 0 Refills Prov: Catarino Epperson MD 05/29/20 Referrals: [facility],REFERRING (PCP) Patient Instructions: Dental Pain Additional Instructions: Follow-up with your doctor in 7 days. Salt water gargle. Return if worse. Catarino Epperson MD May 29, 2020 00:20
[2020-05-29] MEDS ORDERED: Clindamycin 150mg cap ORAL ONE (00:30)
[2020-05-29] MEDS ORDERED: HYDROcodone/Acetamin 5/325 tab ORAL ONE (00:30)
[2020-05-29] MEDS ORDERED: HYDROmorphone 1mg/ml Carpuject IM ONE (00:30)
--- NOTE | 2020-05-29 00:41 | NUR ---
pt aox3 given and understands discharge medications. v/s stable. pt in no distress. ambulatory out w steady gait
[2020-05-29 00:42] VITALS: BP 140/93
== END 2020-05-29 00:43 | disposition home or self-care (01) ==
LOC: EMR 23:44
DX: K08.89 Other specified disorders of teeth and supporting structures (principal); G89.18 Other acute postprocedural pain; J45.909 Unspecified asthma, uncomplicated; Z88.0 Allergy status to penicillin; Z88.8 Allergy status to other drugs, medicaments and biological substances
CPT/HCPCS: 96372; J1170; Z7502; 99283